=== PATIENT | female | born 1995 | race Caucasian/White ===

== ENCOUNTER → 2017-12-16 | Outpatient (CLI) | payer OTHER ==
--- NOTE | 2017-12-16 14:51 | MAMMOGRAPHY REPORT ---
ULTRASOUND OF BOTH BREASTS: 12/16/2017 CLINICAL HISTORY: 22-year-old woman presents with a palpable lump in the 9:00 right breast. She repo rts she noticed a lump approximately 2 weeks ago and it has not changed in size. No skin erythema or thickening. No nipple discharge. No family history of breast cancer. COMPARISON: No prior exams were available for comparison. FINDINGS: The patient pointed out a firm mobile mass in the 9:00 right breast approximately 5 cm from the nipple. On palpation, this mass is approximately 1 x 2 cm. On ultrasound in the 9:00 right pietro ast, 5 cm from the nipple, there is a heterogeneous predominantly hypoechoic solid mass with partiall y circumscribed and partially obscured borders, as well as somewhat indistinct margins measuring 14.6 x 11.2 x 15.5 mm. Given the solid nature and indistinct margins, this mass is indeterminate and def initive characterization with an ultrasound guided core biopsy is recommended. IMPRESSION: ACR BI-RADS CATEGORY 4: SUSPICIOUS - FOLLOW-UP RECOMMENDED The palpable lump at the 9:00 right breast corresponds to an indeterminate solid heterogeneous 15.5 m m mass with somewhat indistinct margins. Definitive characterization with an ultrasound-guided core needle biopsy is recommended. These results and recommendations were discussed with the patient at the time of the exam. She tenta tively scheduled the biopsy prior to leaving our department. Tiffanie Terrell M.D. ay/:12/16/2017 08:33:33 Apprentice Stylist: Dr. Tiffanie Terrell, [facility] letter sent: Abnormal 4/5 BI-RADS Code: ACR BI-RADS Category 4: Suspicious
== END | disposition home or self-care (01) ==
LOC: C.MAMM 08:06
PROVIDERS: ATTEND Family Medicine
DX: N63.11 Unspecified lump in the right breast, upper outer quadrant (principal)

== ENCOUNTER → 2017-12-18 | Outpatient (CLI) | payer OTHER ==
--- NOTE | 2017-12-18 13:16 | Discharge Instructions ---
Discharge Instructions Procedure Procedure Date: Dec 18, 2017. Reason for visit: Right Palpable Mass. Discharge Discharge Date: Dec 18, 2017. Discharge Diagnosis: post right breast mass ultrasound guided core biopsy Instructions Activity Recommendations: Additional Limitations (see below) Return to School/Work: no limitations Recommended Home Diet: No Limitations Provider Instructions: ACTIVITY RECOMMENDATIONS: * No lifting, pushing, pulling or exercising the affected side for three days. RETURN TO SCHOOL/WORK: * You may return to work/school after the procedure, but do not perform any strenuous activities for 24 to 48 hours. MEDICATIONS: * Tylenol (two 325 mg) every four to six hours if needed for mild pain (if not allergic to Tylenol). DIET: * Resume previous diet. SPECIAL CARE INSTRUCTIONS: * Keep biopsy site dry for 24 hours. May shower after 24 hours, but do not soak (bathe) incision. * May remove Tegaderm (plastic patch) tomorrow AFTER showering. * Leave the steri-strips on for one week. Allow the steri-strips to fall off by themselves. If not off after one week, you may remove them. You may place a Bandaid crosswise over the strips, if desired. * Apply ice 10 minutes on and 10 minutes off as needed. * Wear a bra at bedtime to sleep more comfortably for 2-3 days. * Your referring physician should have the results after approximately 5 to 7 business days. * Call for unusual bleeding, fever, drainage, etc or if you have any questions call [phone] during normal business hours or after hours call Dr Terrell, . FOLLOW UP VISIT: Follow-up with Referring Physician as scheduled. Allergies Uncoded Allergies: NKDA (Allergy, Unknown, 09/12/04) [facility] Recommendations: Call your doctor if: * Temperature above 101 degrees * Pain not relieved by pain medicine ordered * There is increased drainage or redness from any incision * You have any unanswered questions or concerns. Your Doctors Instructions noted above were prepared by provider Tiffanie Terrell. Patient Signature Section: Patient Instructions Signature Page Ashley Siegel Patient (or Guardian) Signature/Date: I have read and understand the instructions given to me by my caregivers. Caregiver/RN/Doctor Signature/Date: The above-named patient and/or guardian has received patient instructions on this date. + Original Patient Signature Page (only) stays with chart. Please make copy for patient.
--- NOTE | 2017-12-18 15:13 | MAMMOGRAPHY REPORT ---
ULTRASOUND GUIDED BIOPSY RIGHT BREAST: 12/18/2017 CLINICAL HISTORY: 15.5 mm non-circumscribed palpable solid mass in the 9:00 right breast. Patient pr esents for ultrasound guided core biopsy. COMPARISON: Comparison is made to exam dated: 12/16/2017 ultrasound - [facility]. PATIENT CONSENT: The procedure, risks and benefits were discussed with the patient and informed conse nt was obtained both verbally and in writing. Specific risks to this procedure include: bleeding, in fection, puncture of adjacent structure, nontarget biopsy, sampling error, pain, metal allergy and me dication reaction. PROCEDURE DESCRIPTION: A time out was performed and the right breast was agreed as the site of biopsy . The skin was prepped and draped in the usual sterile fashion. The solid palpable non-circumscribed 15.5 mm mass in the 9:00 right breast was chosen as the target for biopsy. Subcutaneous and intrapare nchymal 1% buffered lidocaine, with and without epinephrine, was administered as local anesthesia. A skin incision was made. Through the incision, 5 samples were taken with a 14 gauge Achieve biopsy de vice. A ribbon shaped metallic marker was placed at the biopsy site. Hemostasis was achieved after ma nual compression. The patient tolerated the procedure well and there was no immediate complication. The samples were sent to the pathology department in an appropriately labeled container. Post procedure mammography was deferred given the patient's age. IMPRESSION: ULTRASOUND GUIDED BIOPSY Status post ultrasound guided core biopsy of a solid palpable 15.5 mm mass in the 9:00 right breast. The patient will receive notification of the biopsy results from her referring physician. Tiffanie Terrell M.D. ay/:12/18/2017 13:18:16 Center Director Lead Teacher: aPm AGGARWAL)([place]), [facility]
== END | disposition home or self-care (01) ==
LOC: C.MAMM 12:47
PROVIDERS: ATTEND Family Medicine
DX: R92.8 Other abnormal and inconclusive findings on diagnostic imaging of breast (principal); N63.10 Unspecified lump in the right breast, unspecified quadrant; D24.1 Benign neoplasm of right breast

== ENCOUNTER 2022-12-13 18:54 | Inpatient (IN) ==
[2022-12-13] MEDS ORDERED: OXYTOCIN 30 UNITS/500 ML BAG IV PRN (21:43)
[2022-12-13] MEDS ORDERED: LIDOCAINE 1% LOCAL 20 ML VIAL INFIL PRN (21:43)
--- NOTE | 2022-12-13 21:48 | History & Physical Report ---
Date of Service December 13, 2022 Assessment & Plan (1) Uterine contractions at greater than 20 weeks of gestation: Plan: 27-year-old -0-1-1 at 40 weeks of gestation presenting today with contractions and cervical change, vital signs stable afebrile, heart rate reassuring, GBS negative, Plan to admit, monitor, labs, ambulate, epidural for pain as needed, oxytocin/AROM if needed. (2) Term : History of Present Illness Chief Complaint: Contractions Primary Care Provider: Ivory Sykes MD Patient is a 27-year-old -0-1-1 at 40 weeks of gestation who has been feeling irregular contractions for the last 2 days, they got more regular and pain for tonight since 4 PM. No leakage of fluid or vaginal bleeding. She reports good movements. When she first presented here, her cervix was 1 cm dilated and posterior. She walked around and now rechecked by myself and changed to 4 cm, 70%, -2 with a bulging bag. Now she is being admitted for labor. Her has been uncomplicated, GBS negative. Allergies Allergy/AdvReac Type Severity Reaction Status Date / Time No Known Allergies Allergy Unverified 04/28/20 12:34 Home Medications Medication Instructions Recorded Confirmed Type doxylamine 10 mg-pyridoxine (vit See Rx Instructions .Route 04/28/20 Rx B6) 10 mg tablet,delayed release .COMPLEX #12 tabs (Diclegis) Patient History Medical History No pertinent family history No pertinent past medical history Surgical History No pertinent past surgical history Social History Smoking Status: Never smoker Second Hand Exposure: No; Tobacco Cessation Education Requested by Patient: No Hx Alcohol Use: No Hx Substance Use: No Preferred Language: Citizen Of [place] Communication Ability: Effective 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 Review of Systems as per Subjective / HPI Physical Exam Constitutional: WD/WN, vitals as above well developed, well nourished and comfortable Genitourinary: normal external appearance OB Exam Abdomen: + vertex Manual OB Exam: + cervical dilation 4 cm, + cervical effacement 70% and + station -2 (Bulging bag) OB Exam Monitor Tracing: + external uterine monitor used and + category I Bedside ultrasound, vertex, ALYSIA 10 cm Results & Data ([facility]) Vital Signs (Past 12 Hours) Vital Signs Temp Pulse Resp BP 12/13/22 19:24 36.8 C 18 12/13/22 19:10 18 12/13/22 19:10 36.8 C 18 12/13/22 19:12 99 H 128/76
[2022-12-13 22:48] LABS: Hematocrit (blood only) 36.1 % (37.0-47.0); Mean Corpuscular Hemoglobin 28.8 pg (25.0-34.0); Mean Corpuscular Hgb Conc 33.2 g/dL (32.0-36.0); Mean Corpuscular Volume 86.6 fL (80.0-100.0); Platelet Count 197 K/uL (130-400); RDW Coefficient of Variation 14.4 % (11.5-14.5); RDW Standard Deviation 45.3 fL (36.4-46.3); Red Blood Count 4.17 M/uL (4.20-5.40); White Blood Count 10.54 K/ul (4.8-10.8)
[2022-12-13] MEDS: LACTATED RINGER'S 1,000 ML IV PRN ×2 (23:00→23:55)
[2022-12-13] MEDS ORDERED: BUPIVACAINE 0.25% 30 ML VIAL ONE (23:10)
[2022-12-13] MEDS ORDERED: ePHEDrine sulfate 50 MG/ML AMP ONE (23:10)
[2022-12-13] MEDS ORDERED: fentaNYL citrate 100 MCG/2 ML VIAL ONE (23:10)
[2022-12-13] MEDS ORDERED: SODIUM CHLORIDE 0.9% INJ 10 ML VIAL ONE (23:10)
[2022-12-13] MEDS ORDERED: LIDOCAINE 2%/EPINEPHRINE 1:200,000 20 ML SDV ONE (23:10)
[2022-12-13] MEDS ORDERED: fentaNYL 2MCG/ML ROPIVACAINE 1.25MG/ML 100 ML BAG EPI ONE (23:11)
[2022-12-13] MEDS ORDERED: fentaNYL 2MCG/ML ROPIVACAINE 1.25MG/ML 100 ML BAG EPI PRN (23:25)
[2022-12-13] MEDS ORDERED: ePHEDrine sulfate 50 MG/ML AMP IV PRN (23:25)
[2022-12-13] MEDS ORDERED: NALOXONE HCL 1 MG in SODIUM CHLORIDE 0.9% 1000ML 1,000 ML IV PRN (23:25)
[2022-12-13] MEDS ORDERED: NALBUPHINE HCL INJ 10 MG/ML AMP IV PRN (23:25)
[2022-12-13] MEDS ORDERED: diphenhydrAMINE 50 MG/ML VIAL IV PRN (23:25)
[2022-12-13] MEDS ORDERED: NALOXONE HCL 0.4 MG/1 ML VIAL/CARP IV PRN (23:25)
--- NOTE | 2022-12-13 23:26 | Anesthesiology Consultation ---
Date of Service December 13, 2022 Assessment & Plan (1) Encounter for pre-operative examination: Chart Review Chart Review: Patient NOT seen in Pre Admission Testing and Acceptable Risk for Labor Epidural Consults Requested none History Height/Weight Height: 5 ft 4 in Weight: 87.543 kg Allergies Allergy/AdvReac Type Severity Reaction Status Date / Time No Known Allergies Allergy Unverified 04/28/20 12:34 Medications Home Medications Medication Instructions Recorded Confirmed Last Taken doxylamine 10 mg-pyridoxine (vit See Rx Instructions .Route 04/28/20 Unknown B6) 10 mg tablet,delayed release .COMPLEX #12 tabs (Diclegis) Active Medications Generic Name Dose Route Start Last Admin Trade Name Freq PRN Reason Stop Dose Admin Lactated Ringer's 1,000 mls @ 150 mls/hr 12/13/22 21:43 12/13/22 23:00 Lr IV 12/15/22 21:42 999 mls/hr .[id number] PRN Administration L&D Protocol Protocol Past Medical History Medical History No pertinent family history No pertinent past medical history Past Surgical History Surgical History No pertinent past surgical history Social History Smoking Status: Never smoker Hx Alcohol Use: No Hx Substance Use: No substance use type: does not use Physical Exam Vital Signs Last Vital Signs Temp 98.2 F 12/13/22 19:24 Pulse 99 H 12/13/22 19:12 Resp 18 12/13/22 19:24 BP 128/76 12/13/22 19:12 Testing Laboratory Results 12/13/22 22:16
--- NOTE | 2022-12-14 00:10 | Obstetrical Progress Note ---
Date of Service December 14, 2022 Assessment & Plan Admission and Anticipated Discharge Date Admission Date: December 13, 2022 Subjective Patient is comfortable now, has received epidural for pain. She wants to get some rest. She has not slept much for the last 2 nights due to irregular contractions. FHR categ I Labs: Lab Results 12/13/22 12/13/22 Range/Units 22:00 22:16 WBC 10.54 (4.8-10.8) K/ul RBC 4.17 L (4.20-5.40) M/uL Hgb 12.0 (12.0-16.0) g/dl Hct 36.1 L (37.0-47.0) % MCV 86.6 (80.0-100.0) fL MCH 28.8 (25.0-34.0) pg MCHC 33.2 (32.0-36.0) g/dL RDW Std Deviation 45.3 (36.4-46.3) fL RDW Coeff of Asif 14.4 (11.5-14.5) % Plt Count 197 (130-400) K/uL MPV 10.0 (9.4-12.4) fL SARS-CoV-2, RNA, NAAT NEGATIVE (NEGATIVE) Continue to monitor closely Augment with Oxytocin as needed Results & Data ([facility]) Vital Signs (Past 12 Hours) Vital Signs Temp Pulse Resp BP Pulse Ox 12/13/22 19:24 36.8 C 18 12/14/22 00:04 110 H 97 12/13/22 23:59 101 H 96 12/13/22 23:55 94 H 107/59 L 12/13/22 23:54 95 H 96 12/13/22 23:52 86 106/59 L 12/13/22 23:49 91 H 112/59 L 97 12/13/22 23:46 93 H 122/64 12/13/22 23:44 96 H 12/13/22 23:44 98 H 124/66 99 12/13/22 23:39 93 H 100 12/13/22 19:10 18 12/13/22 19:10 36.8 C 18 12/13/22 19:12 99 H 128/76
[2022-12-14] MEDS ORDERED: OXYTOCIN 30 UNITS/500 ML BAG IV PRN ×2 (01:10→06:22)
[2022-12-14] MEDS ORDERED: ceFAZolin 2000MG 2,000 MG/15 ML SYR IV STA (05:55)
[2022-12-14] MEDS ORDERED: oxyCODONE/ACETAMINOPHEN 5mg/325mg TAB PO PRN (06:22)
[2022-12-14] MEDS ORDERED: DIPHTHERIA/TETANUS/PERTUSSIS 0.5mL SYR/VIAL (Age 7+yrs) IM ONE (06:22)
[2022-12-14] MEDS ORDERED: bisacodyL 10 MG SUPP PR PRN (06:22)
[2022-12-14] MEDS ORDERED: ACETAMINOPHEN 325 MG TAB PO PRN (06:22)
[2022-12-14] MEDS ORDERED: MEASLES, MUMPS & RUBELLA VIRUS VIAL SQ ONE (06:22)
[2022-12-14] MEDS ORDERED: HYDROCORTISONE ACETATE 25 MG SUPP PR PRN (06:22)
[2022-12-14] MEDS ORDERED: BENZOCAINE 20% AER SPR 82.5 GM CAN EXT PRN (06:22)
--- NOTE | 2022-12-14 06:30 | Delivery Summary ---
Vaginal Delivery Summary Date of Service December 14, 2022 Vaginal Delivery Summary Patient was found to be fully dilated and desire to push. She pushed through 2 contractions and delivered the head without difficulty. It was direct OP facing upwards. There was whose nuchal cord around the neck x2. It was reduced and then the shoulders were delivered with minimal traction and baby was handed off to the mother. The baby was moving and crying vigorously. The cord was clamped x2 and cut at 1 minute delay. Then the vagina and perineum were checked for lacerations. There was an laceration at the posterior fourchette where skin tightness and scarring was noted from prior delivery and repair. It was close to the perianal skin. Rectal exam was done and confirmed to be in third-degree laceration. The gloves were changed. The placenta was found to be in the vagina and delivered spontaneously as intact and complete. Uterus was explored and found to be empty, fundus was firm and EBL was 100 mL. Then the sphincter muscles were held with Allis clamps x2 and brought to the midline. They were repaired with 2-0 Vicryl with multiple figure of 8 stitches. And the perineal body muscles close to this repair were also reinforced with 2- 0 Vicryl. Rectal exam was repeated and excellent sphincter tone and integrity was noted and no sutures were felt. The gloves were changed and the vaginal mucosa was repaired with another 2-0 Vicryl in a running fashion and skin with 3-0 Vicryl in a subcuticular fashion. Excellent hemostasis was achieved. Rest of the vagina and labia were intact. The mom and baby tolerated procedure well. The baby was a viable male , Apgars 8/9 and weight is pending. No complications happened and I was present during whole procedure. At the end of the procedure the sponge needle instrument count was correct x2.
--- NOTE | 2022-12-14 08:11 | Anesthesia Procedure Note ---
Date of Service December 14, 2022 Anesthesia Post Epidural Note Vital Signs Vital Signs: Temp Pulse Resp BP Pulse Ox 36.8 C 99 H 18 133/67 89 L 12/14/22 06:23 12/14/22 08:08 12/14/22 06:53 12/14/22 08:08 12/14/22 05:49 Pain Intensity Bilateral Episiotomy/Laceration: Pain Intensity: 2 Notes Mental Status: alert / awake / arousable and participated in evaluation Nausea / Vomiting: adequately controlled Pain: adequately controlled Airway Patency, RR, SpO2: stable & adequate BP & HR: stable & adequate Hydration State: stable & adequate Neuraxial Anesthesia: was administered and sensory block is resolving Anesthetic Complications: no major complications apparent and Pt Satisfied with anesthetic care Epidural: Removed without complications and With tip intact
[2022-12-14] MEDS ORDERED: Nursing to Pharmacy Communication SCH (08:45)
[2022-12-14] MEDS: IBUPROFEN 600 MG TAB PO PRN ×3 (08:50→17:23)
[2022-12-14] MEDS: PRENATAL VITAMIN 1 TAB PO SCH (08:51)
[2022-12-14] MEDS: DOCUSATE SODIUM 100 MG CAP PO SCH ×2 (08:51→20:49)
[2022-12-14] MEDS: FERROUS SULFATE 325 MG TAB PO SCH (08:51)
[2022-12-14] MEDS ORDERED: bisacodyL 5 MG TABEC PO SCH (20:00)
[2022-12-15] MEDS: IBUPROFEN 600 MG TAB PO PRN ×2 (01:48→05:39)
[2022-12-15 06:27] LABS: Hematocrit (blood only) 33.1 % (37.0-47.0); Hemoglobin 10.9 g/dl (12.0-16.0); Mean Corpuscular Hemoglobin 28.9 pg (25.0-34.0); Mean Corpuscular Hgb Conc 32.9 g/dL (32.0-36.0); Mean Corpuscular Volume 87.8 fL (80.0-100.0); Mean Platelet Volume 9.9 fL (9.4-12.4); Platelet Count 153 K/uL (130-400); RDW Coefficient of Variation 14.5 % (11.5-14.5); RDW Standard Deviation 46.5 fL (36.4-46.3); Red Blood Count 3.77 M/uL (4.20-5.40); White Blood Count 11.09 K/ul (4.8-10.8)
[2022-12-15] MEDS: FERROUS SULFATE 325 MG TAB PO SCH (08:04)
[2022-12-15] MEDS: DOCUSATE SODIUM 100 MG CAP PO SCH (08:04)
[2022-12-15] MEDS: PRENATAL VITAMIN 1 TAB PO SCH (08:04)
--- NOTE | 2022-12-15 10:36 | Obstetrical Progress Note ---
Date of Service December 15, 2022 Assessment & Plan (1) Term : PPD #1 pt wishes to be discharged home d/c home with instructions Subjective Ambulation: ambulating normally Voiding: no voiding problems Passing Gas:: Yes Diet Tolerance:: regular diet Lochia:: Small Feeding Type:: breast feeding Review of Systems All systems reviewed & are unremarkable except as noted in HPI & below Physical Exam Constitutional WD/WN, vitals as above well developed and well nourished Eyes PERRL, conjunctivae normal, anicteric sclerae Neck trachea midline, no thyromegaly Respiratory normal respiratory effort, lungs clear to auscultation Auscultation: no crackles, no rales and no wheezes Cardiovascular RRR, no murmur, no edema Gastrointestinal (Abdomen) normal bowel sounds, soft, nontender, no hepatosplenomegaly Uterus is below umbilicus Musculoskeletal no cyanosis or clubbing, extremities motor strength 5/5 Skin no rashes, warm and dry Neurologic patellar DTR's 2+ bilat, sensation intact Psychiatric A+Ox3, euthymic affect Genitourinary normal external appearance Results & Data ([facility]) Vital Signs (Past 12 Hours) Vital Signs Temp Pulse Resp BP Pulse Ox O2 Del Method 12/15/22 08:05 36.7 C 79 18 117/79 97 Room Air 12/15/22 04:29 36.4 C L 76 18 118/77 96 Room Air 12/15/22 00:20 Room Air 12/15/22 00:20 36.6 C 82 18 110/72 99 Room Air
== END 2022-12-15 10:55 | disposition home or self-care (01) | DRG 768 ==
LOC: OPB 18:54 → 4S1 19:02 → 4E2 12-14 10:32

== ENCOUNTER 2025-02-16 15:36 | Inpatient (IN) ==
[2025-02-16] MEDS ORDERED: OXYTOCIN 30 UNITS/NSS 30 UNITS/500 ML BAG IV PRN ×2 (17:07→17:13)
[2025-02-16] MEDS ORDERED: LIDOCAINE 1% LOCAL 20 ML VIAL INFIL PRN (17:07)
[2025-02-16] MEDS ORDERED: ACETAMINOPHEN 500 MG TAB PO PRN (17:07)
[2025-02-16] MEDS ORDERED: CALCIUM CARBONATE 500 MG CHEWABLE TAB PO PRN (17:07)
[2025-02-16] MEDS: LACTATED RINGER'S 1,000 ML IV PRN (17:30)
--- NOTE | 2025-02-16 17:33 | History & Physical Report ---
Date of Service February 16, 2025 Assessment & Plan (1) Term : (2) Uterine contractions at greater than 20 weeks of gestation: (3) Active labor at term: Plan: 30-year-old -0-1-2 at 40 weeks and 1 day gestation presenting today in active labor with contractions, Vital signs stable although systolic blood pressures elevated no other symptoms, labs pending, heart rate reassuring, Known abnormality, absent left kidney, vp delivery is notified GBS negative, Plan to admit,Monitor, labs, epidural for pain, augment with low-dose Pitocin and then AROM, all questions were answered. (4) renal anomaly, single gestation: History of Present Illness Chief Complaint: contractions Primary Care Provider: Ivory Sykes MD patient is a 30-year-old -0-0-2 at 40 weeks and 1 day gestation who has been feeling contractions since midnight, she was up all night with contractions and then they slowed down in the morning when she took a nap. This started again this afternoon and they have been coming every 3 to 5 minutes. She denies leakage of fluid or vaginal bleeding. Baby was very active overnight by and then slowed down during the day and started to move again when she came here. She denies headaches, change in her vision, nausea vomiting, epigastric or right upper quadrant pain. Her has been complicated by, 1. Obesity during , 2. history of omphalocele during first , baby was delivered in [facility] had surgery and she is doing well now, 3. anomaly during , absent left kidney GBS is negative Allergies Allergy/AdvReac Type Severity Reaction Status Date / Time No Known Allergies Allergy Unverified 04/28/20 12:34 Home Medications Medication Instructions Recorded Confirmed Type prenat.vits,valentine,afc-kdpr-qsqer 1 tab PO DAILY 12/14/22 02/16/25 History ferrous sulfate 325 mg (65 mg 325 mg PO DAILY@08 #30 tabs 12/15/22 02/16/25 Rx iron) tablet,delayed release Patient History Medical History Anemia had Iron Infusion this Surgical History [place] teeth removed Social History Smoking Status: Never smoker Second Hand Exposure: No; Hx Alcohol Use: No Hx Substance Use: No Preferred Language: Japanese Communication Ability: Effective 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 Beliefs That Will Affect Care: None marital status: Current Living Situation: Spouse and Family Feels Safe at Home: Yes Assistive Devices: Contacts and Glasses 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 of STDs, no history of chlamydia, gonorrhea, herpes Review of Systems as per Subjective / HPI Physical Exam Constitutional: WD/WN, vitals as above well developed, well nourished, + acute distress ( with contractions) and + obese Gastrointestinal (Abdomen): normal bowel sounds, soft, nontender, no hepatosplenomegaly Genitourinary: normal external appearance OB Exam Abdomen: + vertex ( confirmed with bedside ultrasound) Manual OB Exam: + cervical dilation 5 cm ( very soft stretchable cervix), + cervical effacement 50% and + station high ( bulging bag, unable to feel presenting part) OB Exam Monitor Tracing: + external uterine monitor used and + category I bedside ultrasound revealed single IUP, vertex, ALYSIA is 16 cm, placenta fundal posterior, EFW is 3668 g Results & Data Vital Signs (Past 12 Hours) Vital Signs Temp Pulse Resp BP 02/16/25 16:40 86 02/16/25 16:40 146/76 H 02/16/25 16:26 92 H 02/16/25 16:26 140/77 02/16/25 16:09 91 H 02/16/25 16:09 141/85 H 02/16/25 15:49 36.5 C 91 H 20 144/85 H 02/16/25 15:46 91 H 144/85 H 02/16/25 15:44 20 02/16/25 15:44 36.5 C 20 Laboratory Results Lab Results 02/16/25 Range/Units 17:17 WBC 10.45 (4.8-10.8) K/ul RBC 4.55 (4.20-5.40) M/uL Hgb 12.7 (12.0-16.0) g/dl Hct 38.8 (37.0-47.0) % MCV 85.3 (80.0-100.0) fL MCH 27.9 (25.0-34.0) pg MCHC 32.7 (32.0-36.0) g/dL RDW Std Deviation 56.7 H (36.4-46.3) fL RDW Coeff of Asif 18.2 H (11.5-14.5) % Plt Count 170 (130-400) K/uL MPV 9.7 (9.4-12.4) fL
[2025-02-16 17:42] LABS: Hematocrit (blood only) 38.8 % (37.0-47.0); Hemoglobin 12.7 g/dl (12.0-16.0); Mean Corpuscular Hemoglobin 27.9 pg (25.0-34.0); Mean Corpuscular Hgb Conc 32.7 g/dL (32.0-36.0); Mean Corpuscular Volume 85.3 fL (80.0-100.0); Mean Platelet Volume 9.7 fL (9.4-12.4); Platelet Count 170 K/uL (130-400); RDW Coefficient of Variation 18.2 % (11.5-14.5); RDW Standard Deviation 56.7 fL (36.4-46.3); Red Blood Count 4.55 M/uL (4.20-5.40); White Blood Count 10.45 K/ul (4.8-10.8)
--- NOTE | 2025-02-16 17:49 | Anesthesiology Consultation ---
Date of Service February 16, 2025 Assessment & Plan (1) Encounter for pre-operative examination: Chart Review Chart Review: Acceptable Risk for Labor Epidural History Height/Weight Height: 5 ft 4 in Weight: 97.069 kg Allergies Allergy/AdvReac Type Severity Reaction Status Date / Time No Known Allergies Allergy Unverified 04/28/20 12:34 Medications Home Medications Medication Instructions Recorded Confirmed Last Taken prenat.vits,valentine,yov-iybo-qopdm 1 tab PO DAILY 12/14/22 02/16/25 02/15/25 20:00 ferrous sulfate 325 mg (65 mg 325 mg PO DAILY@08 #30 tabs 12/15/22 02/16/25 02/15/25 20:00 iron) tablet,delayed release Past Medical History Medical History Anemia had Iron Infusion this Past Surgical History Surgical History [place] teeth removed Social History Smoking Status: Never smoker Hx Alcohol Use: No Hx Substance Use: No substance use type: does not use Physical Exam Vital Signs Last Vital Signs Temp 36.5 C 02/16/25 15:49 Pulse 88 02/16/25 17:45 Resp 20 02/16/25 15:49 BP 146/76 H 02/16/25 16:40 Pulse Ox 96 02/16/25 17:45 Testing Laboratory Results 02/16/25 17:17
[2025-02-16 17:54] LABS: Albumin Globulin Ratio 1.2 (0.9-2); Albumin Level 3.5 gm/dl (3.4-5.0); BUN Creatinine Ratio 21.7 (10-20); Bilirubin,Total 0.3 mg/dl (0.2-1.0); Calcium 9.1 mg/dl (8.6-10.3); Creatinine Clr Calc Pharmacy 205.9 ml/min; Potassium 4.1 mmol/L (3.5-5.1); Total Protein 6.5 gm/dl (6.0-8.3)
[2025-02-16] MEDS: fentaNYL citrate PF 100 MCG/2 ML VIAL ONE (18:16)
[2025-02-16] MEDS: BUPIVACAINE 0.25% PF 30 ML VIAL ONE (18:16)
[2025-02-16] MEDS: LIDOCAINE 2%/EPINEPHRINE 1:200,000 20 ML PF ONE (18:16)
[2025-02-16] MEDS: fentANYL 2 MCG/ML BUPIVacaine 0.125%-NSS 100ML BAG ONE (18:17)
[2025-02-16] MEDS ORDERED: fentaNYL citrate PF 100 MCG/2 ML VIAL EPI PRN (18:18)
[2025-02-16] MEDS ORDERED: BUPIVACAINE 0.25% PF 30 ML VIAL EPI PRN (18:18)
[2025-02-16] MEDS ORDERED: ePHEDrine sulfate 50 MG/ML AMP IV PRN (18:18)
[2025-02-16] MEDS ORDERED: fentANYL 2 MCG/ML BUPIVacaine 0.125%-NSS 100ML BAG EPI PRN (18:18)
[2025-02-16] MEDS ORDERED: ONDANSETRON INJ 2 MG/ML 2 ML VIAL IV PRN (18:18)
[2025-02-16] MEDS ORDERED: NALOXONE HCL 0.4 MG/1 ML VIAL/CARP IV PRN (18:18)
[2025-02-16] MEDS ORDERED: NALOXONE HCL 1 MG in SODIUM CHLORIDE 0.9% 1,000 ML IV PRN (18:18)
[2025-02-16] MEDS ORDERED: SODIUM CHLORIDE 0.9% PF INJ 10 ML VIAL EPI PRN (18:18)
[2025-02-16] MEDS ORDERED: LIDOCAINE 2% MPF LOCAL 5 ML VIAL EPI PRN (18:18)
[2025-02-16] MEDS ORDERED: ROPIVACAINE 0.5% PF 5 MG/ML 20 ML VIAL EPI PRN (18:18)
[2025-02-16] MEDS: SODIUM CHLORIDE 0.9% PF INJ 10 ML VIAL ONE (18:28)
--- NOTE | 2025-02-16 20:20 | Obstetrical Progress Note ---
Date of Service February 16, 2025 Assessment & Plan Admission and Anticipated Discharge Date Admission Date: February 16, 2025 Subjective Patient received epidural for pain and now feels pressure VE 7-8 cm/ 80%/ large bulging bag, AROM'ed, abundant clear fluid, head is at -1 FHR categ I Continue to monitor closely Results & Data Vital Signs (Past 12 Hours) Vital Signs Temp Pulse Resp BP Pulse Ox 02/16/25 20:15 98 02/16/25 20:15 86 02/16/25 20:12 77 02/16/25 20:12 134/63 02/16/25 20:10 99 02/16/25 20:10 89 02/16/25 20:05 99 02/16/25 20:05 88 02/16/25 20:00 98 02/16/25 20:00 80 02/16/25 19:59 76 02/16/25 19:59 134/54 L 02/16/25 19:59 93 02/16/25 19:59 84 02/16/25 19:55 99 02/16/25 19:55 87 02/16/25 19:50 99 02/16/25 19:50 84 02/16/25 19:45 98 02/16/25 19:45 74 02/16/25 19:43 72 02/16/25 19:43 102/59 L 02/16/25 19:40 97 02/16/25 19:40 84 02/16/25 19:35 97 02/16/25 19:35 68 02/16/25 19:30 98 02/16/25 19:30 80 02/16/25 19:29 73 02/16/25 19:29 116/59 L 02/16/25 19:25 98 02/16/25 19:25 77 02/16/25 19:20 97 02/16/25 19:20 73 02/16/25 19:15 98 02/16/25 19:15 78 02/16/25 19:10 98 02/16/25 19:10 74 02/16/25 19:09 75 02/16/25 19:09 106/54 L 02/16/25 19:05 36.9 C 16 02/16/25 19:05 98 02/16/25 19:05 78 02/16/25 19:04 75 02/16/25 19:04 103/55 L 02/16/25 19:00 99 02/16/25 19:00 73 02/16/25 18:59 81 02/16/25 18:59 101/55 L 02/16/25 18:55 98 02/16/25 18:55 75 02/16/25 18:54 75 02/16/25 18:54 99/54 L 02/16/25 18:50 97 02/16/25 18:50 73 02/16/25 18:48 71 02/16/25 18:48 95/50 L 02/16/25 18:45 96 02/16/25 18:45 84 02/16/25 18:44 83 02/16/25 18:44 100/60 02/16/25 18:40 96 02/16/25 18:40 82 02/16/25 18:39 102 H 02/16/25 18:39 93/52 L 02/16/25 18:35 96 02/16/25 18:35 80 02/16/25 18:33 85 02/16/25 18:33 94/51 L 02/16/25 18:30 96 02/16/25 18:30 86 02/16/25 18:29 78 02/16/25 18:29 104/53 L 02/16/25 18:25 96 02/16/25 18:25 88 02/16/25 18:21 92 H 02/16/25 18:21 107/59 L 02/16/25 18:20 97 02/16/25 18:20 86 02/16/25 18:18 78 02/16/25 18:18 95/55 L 02/16/25 18:15 96 02/16/25 18:15 91 H 02/16/25 18:15 99/57 L 02/16/25 18:13 81 02/16/25 18:13 99/58 L 02/16/25 18:10 96 02/16/25 18:10 88 02/16/25 18:09 91 H 02/16/25 18:09 125/60 02/16/25 18:06 86 02/16/25 18:06 124/74 02/16/25 18:05 96 02/16/25 18:05 86 02/16/25 18:00 97 02/16/25 18:00 101 H 02/16/25 17:59 94 02/16/25 17:59 111 H 02/16/25 17:56 83 02/16/25 17:56 126/81 02/16/25 17:55 96 02/16/25 17:55 82 02/16/25 17:50 96 02/16/25 17:50 85 02/16/25 17:45 96 02/16/25 17:45 88 02/16/25 17:40 96 02/16/25 17:40 87 02/16/25 17:35 95 02/16/25 17:35 82 02/16/25 17:30 96 02/16/25 17:30 89 02/16/25 16:40 86 02/16/25 16:40 146/76 H 02/16/25 16:26 92 H 02/16/25 16:26 140/77 02/16/25 16:09 91 H 02/16/25 16:09 141/85 H 02/16/25 15:49 36.5 C 91 H 20 144/85 H 02/16/25 15:46 91 H 144/85 H 02/16/25 15:44 20 02/16/25 15:44 36.5 C 20
[2025-02-16] MEDS: OXYTOCIN 30 UNITS/NSS 30 UNITS/500 ML BAG IV PRN (21:01)
[2025-02-16] MEDS ORDERED: oxyCODONE/ACETAMINOPHEN 5mg/325mg TAB PO PRN (21:09)
[2025-02-16] MEDS ORDERED: HYDROCORTISONE ACETATE 25 MG SUPP PR PRN (21:09)
--- NOTE | 2025-02-16 21:15 | Delivery Summary ---
Vaginal Delivery Summary Date of Service February 16, 2025 Vaginal Delivery Summary Patient was found to be fully dilated and desires to push. She pushed with one contraction only min and delivered the head and then shoulders with minimal traction. The baby was handed off to the mother. The cord was clampedx2 and cut at 1 minute. The vagina and perineum were checked and found to have a small 2nd degree perineal laceration. Rectal exam was done and noted good sphincter tone. The gloves were changes. The vaginal mucosa was repaired with 2/0 vicryl and skin on subcuticular fashion. The placenta was delivered spontaneously as intact and complete. The uterus was explored and found to be empty. QBL was 60 ml. The fundus was firm The baby was a viable male , Apgars 8/9, the weight is pending The mother and the baby tolerated the procedure well. No complications happened and I was present during whole procedure.
[2025-02-16] MEDS: ePHEDrine sulfate 50 MG/ML AMP ONE (21:59)
[2025-02-16] MEDS: MEASLES, MUMPS & RUBELLA VIRUS VACCINE (MMR) 0.5ML VIAL SQ ONE (22:00)
[2025-02-16] MEDS: LIDOCAINE 2%/EPINEPHRINE 1:200,000 20 ML PF EPI STA (22:00)
[2025-02-16] MEDS: BUPIVACAINE 0.25% PF 30 ML VIAL EPI STA (22:00)
[2025-02-16] MEDS: fentaNYL citrate PF 100 MCG/2 ML VIAL EPI STA (22:00)
[2025-02-16] MEDS: SODIUM CHLORIDE 0.9% PF INJ 10 ML VIAL EPI STA (22:00)
[2025-02-16] MEDS: IBUPROFEN 600 MG TAB PO PRN (22:07)
[2025-02-16] MEDS: BENZOCAINE 20% SPRY 85 APPLN/85 GM CAN EXT PRN (22:08)
[2025-02-16] MEDS: DIPHTHER/TETAN/PERTUS Vaccine (Tdap, Adol/Adult) 0.5mL IM ONE (23:59)
[2025-02-17] MEDS: ACETAMINOPHEN 325 MG TAB PO PRN (04:09)
--- OUTSIDE RECORDS SUMMARY | 2025-02-17 04:13 | External Medical Summary ---
Author Name Unknown Address Unknown Organization [id number][facility] [facility] [address] [place] [address] Laboratory Report Ordering Provider Test Date Status LUPE VALDEZ 01/28/2025 14:58:19 Final Observation Date Value Abnormality Reference (Units ) Status WBC, Total 01/28/2025 14:58:19 8.88 4.00-10.8 0 (K/uL) Final RBC 01/28/2025 14:58:19 4.12 3.85-5.15 (M/uL) Final Hemoglobin 01/28/2025 14:58:19 12.0 12.0-15.3 (g/dL) Final HCT 01/28/2025 14:58:19 36.3 36.0-45.2 (%) Final MCV 01/28/2025 14:58:19 88.1 81.5-97.5 (fL) Final MCH 01/28/2025 14:58:19 29.1 27.0-34.0 (pg) Final MCHC 01/28/2025 14:58:19 33.1 32.0-36.0 (g/dL) Final RDW 01/28/2025 14:58:19 18.8 11.5-15.5 (%) Final Platelets 01/28/2025 14:58:19 165 140-400 (K /uL) Final MPV 01/28/2025 14:58:19 9.8 6.6-11.1 ( fL) Final Performing Location [facility] [place] [facility] [place] [address]
--- OUTSIDE RECORDS SUMMARY | 2025-02-17 04:13 | External Medical Summary | Summary of Care ---
Author Name Unknown Organization [facility] Address [address] [facility] [place] [address] Phone [phone] Care Team Providers Care Street Light Mechanic Name Role Phone Ivory Sykes MD Primary Care Provider Reason for Visit * Reason Comments Outpatient Testing Encounter Details Date Type Department Care Team (Late st Contact Info) Description 01/28/2025 3:10 PM EDT Laboratory Laboratory, [facility] [address] [facility] [place] [id number] [facility] [address] Antepartum anemia complicating Allergies No known active allergiesdocumented as of this encounter (statuses as of 01/28/2025) Medications 27-0.8 MG TABS Take 1 Tablet by mouth in the morning. Active Iron (Ferrous Sulfate) 325 (65 Fe) MG Oral Tablet Take 1 Tablet by mouth in the morning. 90 Tablet 1 12/17/2024 Active documented as of this encounter (statuses as of 01/28/2025) Active Problems Problem Noted Date Diagnosed Date Iron deficiency anemia 12/16/2024 Antepartum anemia complicating 025 Overview (12/02/2024): Third tri labs Hgb 10.2. IV iron recommended Health counseling 11/13/2024 Overview (01/28/2025): Problem Action Taken Date entered Entered by Date resolved nutrition [facility] Consuelo Bell RN 11/13/2024 Dental visits Encouraged 11/13/2024 Consuelo Bell RN 11/13/2024 planned Will give pump later in 11/13/2024 Consuelo Bell RN 11/13/2024 Problem Action Taken Date entered Entered by Date resolved Current needs or questions Patient denies having any current needs or questions 11/30/2024 Consuelo Bell RN 11/30/2024 Problem Action Taken Date entered Entered by Date resolved Current needs or questions Patient denies having any current needs or questions 01/21/2025 Delaney Yin RN 01/21/2025 Problem Action Taken Date entered Entered by Date resolved Current needs or questions Patient denies having any current needs or questions 01/28/2025 Consuelo Bell RN 01/28/2025 Assessment & Plan (12/17/2024 9:37 AM EST): Problem Action Taken Date entered Entered by Date resolved Current needs or questions Patient denies having any current needs or questions 12/17/2024 Consuelo Bell RN 12/17/2024 renal anomaly, 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 A left kidney was not visualized, with a normal contralateral kidney noted. Normal ALYSIA and bladder. Findings confirmed with color Doppler of renal arteries as well as evaluation for pelvic kidney, which was not visualized. 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 We will follow, as may represent pelvic kidney which could not be visualized today. Diagnosis should be confirmed with renal u/s and pediatrics should be made aware. In addition, female infants with renal agenesis may also have Mullerian anomalies. Due to small risk for genetic anomalies in fetus with renal agenesis, will also refer to genetic counseling. Questions answered. As required by [place] Act 112, the Patient Test Result Information Act, I have discussed with the patient the significant findings from the diagnostic imaging service performed today. They have expressed their understanding and signed the acknowledgement form. 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 Pt declined MFM referral and genetic screening for 2023 . 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 Non urgent echocardiogram Umbilical cord cyst during p regnancy, antepartum 08/25/2020 05/25/2022 Omphalocele of fetus in sing [place]ton , antepartum 07/21/2020 05/25/2022 Overview (11/01/2020): Scheduled for delivery at [place] after 39 weeks Assessment & Plan (08/25/2020 3:37 PM EDT): She presents today for follow-up of growth and reassessment of a omphalocele. We reviewed the results of today's ultrasound. The estimated weight is appropriate for gestational age in the 37th percentile. The AC is at the 8th percentile. A small omphalocele is again noted. It is similar in size and appearance to the prior exam and appears to contain bowel. The remainder of the visualized anatomy is unremarkable in appearance. The ALYSIA is normal. An umbilical cord cyst is noted distal to the omphalocele. It appears to be paraxial (not central). It appears more hypoechoic compared to the prior exam, with less internal debris. We discussed that today's imaging is similar to the prior exam. The AC is smaller; this may reflect less interval growth than expected vs positional factors/omphalocele. I recommended follow-up in 3-4 weeks. She is scheduled at that time for an MDC as well. Urinary tract infection affecting 07/21/2020 09/29/2020 Low-lying placenta 07/21/2020 0 High-risk 05/26/2020 05/25/20 22 documented as of this encounter (statuses as of 01/28/2025) Immunizations Name Administration Dates Next Due Seasonal Influenza, PF, 6 M & above, IM , (FluLaval or Fluzone) 12/03/2020(Deferred: Patient Refused - janice ho) TDAP (age 10 and older)(Boostrix) 09/27/2022,12/2019 documented as of this encounter Social History Tobacco Use Types Packs/Day Years Used Date Smoking Tobacco: Never Smokeless Tobacco: Never Alcohol Use Standard Drinks/Week Comments No 0 (1 standard drink = 0.6 oz pur e alcohol) PHQ-2 Answer Date Recorded PHQ Adult Total Score 0 11/01/2020 Hunger Vital Sign Answer Date Recorded Within the past 12 months, y ou worried that your food would run out before you got the money to buy more. Patient declined Within the past 12 months, t he food you bought just didn't last and you didn't have money to get more. Patient declined [place] Depression Scale Answer Date Recorded [place] Depression Scale Total 3 01/21/2025 The thought of harming myself has occurred to me . Never 01/21/2025 Childcare Answer Date Recorded Do you feel overwhelmed with taking care of a child, family member or friend? No 10/15/2024 Does your family need help f inding childcare? (Household - for ages 0-17 years) Not on file 10/15/2024 Clothing Answer Date Recorded Have you been unable to get clothing when it was really needed? No 10/15/2024 Is your family able to get c lothes or diapers when needed? (Household - for ages 0-17 years) Not on file 10/15/2024 Personal Safety Answer Date Recorded Do you feel unsafe or have concerns for your saf ety? No 10/15/2024 Do you have concerns for you r family's safety? (Household - for ages 0-17 years) Not on file 10/15/2024 Utilities Answer Date Recorded Do you have trouble paying y our heating, water, or electric bill? No 10/15/2024 Is your family able to pay t he heat, water, or electric bill? (Household - for ages 0-17 years) Not on file 10/15/2024 Does your family have access to good internet? (Household - for ages 0-17 years) Not on file 10/15/2024 Employment Status Answer Date Recorded Are you unemployed or without regular income? No 10/15/2024 Does the household have a re gular source of income? (Household - for ages 0-17 years) Not on file 10/15/2024 Social Connections Answer Date Recorded How often do you feel lonely or isolated from th ose around you? Never 10/15/2024 Financial Resource Strain Answer Date R ecorded Do you have any trouble payi ng for your medications, or do you think you might in the future? No 10/15/2024 Does your family have troubl e paying for medicine? (Household - for ages 0-17 years) Not on file 10/15/2024 Transportation Needs Answer Date Record ed Do you have trouble getting a ride to medical visits or work? (Adult - for ages 18 years and over) Not on file 10/15/2024 Does your family have a hard time getting a ride to doctors visits? (Household - for ages 0-17 years) Not on file 10/15/2024 Has lack of transportation k ept you from medical appointments, meetings, work, or from getting things needed for daily living? Check all that apply. No 10/15/2024 Do you (or your family) have trouble finding or paying for a ride (transportation)? (Household - for ages 0-17 years) Not on file 10/15/2024 Housing Stability Answer Date Recorded Do you currently live in a s helter or have no steady place to sleep at night? No 10/15/2024 Do you think you are at risk of becoming homeless? (Adult - for ages 18 years and over) Not on file 10/15/2024 Does your family worry about paying for your home or becoming homeless? (Household - for ages 0-17 years) Not on file 1 12/16/2023 Are you homeless or worried that you might be in the future? No 10/15/2024 Are you (or your family) janki eless or worried that you might be in the future? (Household - for ages 0-17 years) Not on file Food Insecurity Answer Date Recorded Do you need food for this week? No 10/15/2024 Are you able to get enough f ood for your family? (Household - for ages 0-17 years) Not on file 10/15/2024 Does your family need food t his week? (Household - for ages 0-17 years) Not on file 10/15/2024 Do you always have enough fo od for your family? (Household - for ages 0-17 years) Not on file 10/15/2024 Food Insecurity Answer Date Recorded Within the past 12 months, y ou worried that your food would run out before you got the money to buy more. Patient declined Within the past 12 months, t he food you bought just didn't last and you didn't have money to get more. Patient declined Do you need food for this week? No 10/15/2024 Estimated Date of Delivery Comme nts Yes 02/15/2025 Based on last me nstrual period of 05/11/2024 Sex and Gender Information Value Date Recorded Sex Assigned at Female 05/25/2022 9:45 AM EDT Legal Sex Female 6:53 AM EST Gender Identity Female 05/25/2022 9:45 AM EDT Sexual Orientation Straight 05/25/2022 9: 45 AM EDT documented as of this encounter Plan of Treatment Upcoming Encounters Date Type Department Care Team (Late st Contact Info) Description 01/29/2025 9:30 AM EDT Pharmacy Pharmacy, [address] [address] Clinic, [address] [address] 02/09/2025 10:30 AM EDT Office Visit Gynecology/Obstetrics Elisa Crooks [address] [place] [address] Silvino Forbes MD [address] [place] [phone] Nurse Valer[facility] Martha [address] [place] [address] Pending Results Name Type Priority Associated Diagnoses Date /Time IRON SCREEN, INCLUDING TIBC Lab Routine Antepartum anemia complicating 01/28/2025 2:58 PM EDT FERRITIN Lab Routine Antepartum anemia complicating 01/28/2025 2:58 PM EDT FOLIC ACID Lab Routine Antepartum anemia complicating 01/28/2025 2:58 PM EDT VITAMIN B12 Lab Routine Antepartum anemia complicating 01/28/2025 2:58 PM EDT Health Maintenance Due Date Last Done Comments Depression Screening 2009 Hepatitis B Vaccine (1 of 3 - 19+ 3-dose series) 01/23/2016 Lipid Panel 2017 COVID-19 Vaccine ( - 2023-2 5 season) 2024 Influenza Vaccine (FLU shot) (Season Ended) 2025 Pap Smear 07/20/2027 07/20/2024, 05/26/2020 DTap/Tdap Vaccines (3 - Td o r Tdap) 09/27/2032 09/27/2022, 09/29/2020 Gonorrhea / Chlamydia Screen Discontinued , 05/25/2022, 05/26/2020 HPV (Gardasil) Vaccine Aged Out No lo nger eligible based on patient's age to complete this topic MENINGOCOCCAL (MENACTRA/MENVEO) Aged Out No longer eligible based on patient's age to complete this topic Meningitis B Vaccine (Bexsero/Trumemba) Aged Out No longer eligible based on patient's age to complete this topic Pneumococcal Vaccine: Pediatrics (0 to 5 Years) and At-Risk Patients (6 to 18 Years and 19+ Years) Aged Out No longer eligible based on patient's age to complete this topic documented as of this encounter Goals Goal Patient Goal Type Associated Problems Recent Progress Patient-Stated? Author Reminders Care Plan OB Reminders No Abelt, Provider documented as of this encounter Medical Devices Not on filedocumented as of this encounter Procedures Procedure Name Priority Date/Time Associated Diagnosis Comments DIFFERENTIAL, AUTOMATED Routine 01/28/2025 2:58 PM EDT Antepartum anemia complicating RETICULOCYTE PANEL Routine 01/28/2025 2: 58 PM EDT Antepartum anemia complicating CBC Routine 01/28/2025 2:58 PM EDT Antepartum anemia complicating CBC Routine 01/28/2025 2:58 PM EDT Antepartum anemia complicating DIFFERENTIAL, TECHNOLOGIST REVIEW Routine 01/28/2025 2:58 PM EDT Antepartum anemia complicating documented in this encounter Results * DIFFERENTIAL, TECHNOLOGIST REVIEW (01/28/2025 2:58 PM EDT) nRBCs 01/28/2025 3:46 PM EDT [facility] [place] [facility] Blood Venous blood specimen / Unknown Venipuncture / Unknown 01/28/2025 2:58 PM EDT 01/28/2025 2:58 PM EDT Lilian Melendez [facility] LAB BLOOD ORDERABLES Final Res ult [facility] [place] [facility] [place] [address] * DIFFERENTIAL, AUTOMATED (01/28/2025 2:58 PM EDT) WBC 8.88 4.00 - 10.80 K/uL 01/28/2025 3:46 PM EDT [facility] [place] [facility] Neutrophils % 63.3 40.0 - 75.0 % 01/28/2025 3:46 PM EDT [facility] [place] [facility] Lymphocytes % 27.1 18.0 - 42.0 % 01/28/2025 3:46 PM EDT [facility] [place] [facility] Monocytes % 8.8 1.0 - 11.0 % 01/28/2025 3:46 PM EDT [facility] [place] [facility] Eosinophils % 0.6 0.0 - 6.0 % 01/28/2025 3:46 PM EDT [facility] [place] [facility] Basophils % 0.2 0.0 - 2.0 % 01/28/2025 3:46 PM EDT [facility] [place] [facility] Absolute Neutrophils 5.62 1.80 - 7.70 K/uL 01/28/2025 3:46 PM EDT [facility] [place] [facility] Absolute Lymphocytes 2.41 1.00 - 4.80 K/ul 01/28/2025 3:46 PM EDT [facility] [place] [facility] Absolute Monocytes 0.78 0.00 - 1.10 K/uL 01/28/2025 3:46 PM EDT [facility] [place] [facility] Absolute Eosinophils 0.05 0.00 - 0.70 K/uL 01/28/2025 3:46 PM EDT [facility] [place] [facility] Absolute Basophils 0.02 0.00 - 0.20 K/uL 01/28/2025 3:46 PM EDT [facility] [place] [facility] Blood Venous blood specimen / Unknown Venipuncture / Unknown 01/28/2025 2:58 PM EDT 01/28/2025 2:58 PM EDT us Lilian Melendez [facility] LAB BLOOD ORDERABLES Final Res ult [facility] [place] [address] [place] [address] * CBC (01/28/2025 2:58 PM EDT) [facility] WBC 8.88 4.00 - 10.80 K/uL 01/28/2025 3:46 PM EDT [facility] [place] [facility] RBC 4.12 3.85 - 5.15 M/uL 01/28/2025 3:46 PM EDT [facility] [place] [facility] HGB 12.0 12.0 - 15.3 g/dL 01/28/2025 3:46 PM EDT [facility] HCT 36.3 36.0 - 45.2 % 01/28/2025 3:46 PM EDT [facility] MCV 88.1 81.5 - 97.5 fL 01/28/2025 3:46 PM EDT [facility] [place] [facility] MCH 29.1 27.0 - 34.0 pg 01/28/2025 3:46 PM EDT [facility] MCHC 33.1 32.0 - 36.0 g/dL 01/28/2025 3:46 PM EDT [facility] RDW 18.8 11.5 - 15.5 % 01/28/2025 3:46 PM EDT [facility] PLT 165 140 - 400 K/uL 01/28/2025 3:46 PM EDT [facility] [place] [address] MPV 9.8 6.6 - 11.1 fL 01/28/2025 3:46 PM EDT [facility] Blood Venous blood specimen / Unknown Venipuncture / Unknown 01/28/2025 2:58 PM EDT 01/28/2025 2:58 PM EDT us Lilian Melendez [facility] LAB BLOOD ORDERABLES Final Res ult [facility] [place] [address] [place] [address] * (ABNORMAL) RETICULOCYTE PANEL (01/28/2025 2:58 PM EDT) Reticulocyte Percent 3.46(H) 0.80 - 1.90 % 01/28/2025 10:12 PM EDT [facility] Absolute Reticulocyte 149.1(H) 31.3 - 100.1 K/uL 01/28/2025 10:12 PM EDT [facility] Immature Reticulocyte Fraction 30.2(H) 2.5 - 20.6 % 01/28/2025 10:12 PM EDT [facility] Reticulocyte Hemoglobin 32.2 29.7 - 37.4 pg 01/28/2025 10:12 PM EDT [facility] Blood Venous blood specimen / Unknown Venipuncture / Unknown 01/28/2025 2:58 PM EDT 01/28/2025 2:58 PM EDT us Lilian Melendez [facility] LAB BLOOD ORDERABLES Final Res ult [facility] [address] [place] [address] documented in this encounter Visit Diagnoses Diagnosis renal anomaly, single gestation- Primary Encounter for anatomic survey 25 weeks gestation of state, incidental Family history of defect- Primary Family history of congenital anomalies High-risk in third trimester renal anomaly, single gestation Antepartum anemia complicating Anemia, antepartum Health counseling Other specified counseling Antepartum anemia complicating Anemia, antepartum documented in this encounter Additional Health Concerns Active Problems Noted Date Diagnosed Date OB Reminders 08/24/2024 documented as of this encounter Advance Directives * Full Code (Latest Code Status on File) Date Activated Date Inactivated Comments 11/30/2020 9:24 PM 12/03/2020 6:16 PM This order ref lects the patients wishes and were consensually agreed upon. Care Teams Street Light Mechanic Relationship Specialty Start Date End Date Ivory Sykes MD [address] [place] [address] PCP - General Family Medicine 11/14/17 documented as of this encounter
--- OUTSIDE RECORDS SUMMARY | 2025-02-17 04:13 | External Medical Summary ---
Author Name Unknown Address Unknown Organization [id number]:[facility] - [address] [place] [address] Laboratory Report Ordering Provider Test Date Status LUPE VALDEZ 01/28/2025 14:58:19 Final Observation Date Value Abnormality Reference (Units ) Status Ferritin 01/28/2025 14:58:19 366 Above high normal 13 -150 (ng/mL) Final Performing Location [facility] - [address] [place] [address]
--- OUTSIDE RECORDS SUMMARY | 2025-02-17 04:13 | External Medical Summary ---
Author Name Unknown Address Unknown Organization [id number]:[facility] [place] [address] Laboratory Report Ordering Provider Test Date Status LUPE VALDEZ 01/28/2025 14:58:19 Final Observation Date Value Abnormality Reference (Units ) Status Retic, % (auto) 01/28/2025 14:58:19 3.46 Above high normal 0.80-1.90 (%) Final Reticulocytes, Absolute 01/28/2025 14:58:19 149.1 Above high normal 31.3-100.1 (K/uL) Final Reticulocyte fraction, immature 01/28/2025 14:58:19 30.2 Above high normal 2.5-20.6 (%) Final Reticulocyte HGB 01/28/2025 14:58:19 32.2 29.7-37.4 (pg) Final Performing Location [facility] [address] [facility] [address]
--- OUTSIDE RECORDS SUMMARY | 2025-02-17 04:13 | External Medical Summary ---
Author Name Unknown Address Unknown Organization [id number]:[facility] [place] - [address] [place] [address] Laboratory Report Ordering Provider Test Date Status LUPE VALDEZ 01/28/2025 14:58:19 Final Observation Date Value Abnormality Reference (Units ) Status Iron 01/28/2025 14:58:19 58 33-151 (ug /dL) Final Iron-binding capacity 01/28/2025 14:58:19 390 250-425 (ug/dL) Final Transferrin Sat % 01/28/2025 14:58:19 15 15 -55 (%) Final Performing Location [facility] [place] - [address] [place] [address]
--- OUTSIDE RECORDS SUMMARY | 2025-02-17 04:13 | External Medical Summary | Summary of Care ---
Author Name Unknown Organization [facility] Address [address] [facility] [place] [address] Phone [phone] Care Team Providers Care Concrete Laborer Name Role Phone Ivory Sykes MD Primary Care Provider Reason for Visit * Reason Comments Healthy Beginnings Return Encounter Details Date Type Department Care Team (Late st Contact Info) Description 01/28/2025 2:00 PM EDT Office Visit Gynecology/Obstetri malini Crooks [address] [place] [address] Mimi Andino MD [address] [facility] [place] [address] Nurse Valeriy Healthy [facility] Return Martha [address] [facility] [place] [address] 37 weeks gestation of *; Family history of defect; High-risk in third trimester; renal anomaly, single gestation; Health counseling; Antepartum anemia complicating Allergies No known active [...] Date resolved nutrition [facility] Consuelo Bell RN 11/13/2024 Dental visits [...] and vomiting during 05/25/2022 06/22/2022 Single liveborn delivered vaginally 12/01/2020 05/25/2022 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 Non urgent echocardiogram Umbilical cord cyst during p regnancy, antepartum 08/25/2020 05/25/2022 Omphalocele of fetus in sing [place] , antepartum 07/21/2020 05/25/2022 Overview (11/01/2020): Scheduled for delivery at [place] after 39 weeks Assessment & Plan (08/25/2020 [...] have money to get more. Patient declined [place] Depression Scale Answer Date Recorded [place] Depression Scale Total 3 01/21/2025 The thought [...] AM EDT documented as of this encounter Last Filed Vital Signs Vital Sign Reading Time Taken Comments Blood Pressure 112/58 01/28/2025 2:04 PM EDT Pulse - - Temperature - - Respiratory Rate - - Oxygen Saturation - - Inhaled Oxygen Concentration - - Weight 97.1 kg (214 lb) 01/28/2025 2:04 PM EDT Height 162.6 cm (5' 4") 01/28/2025 2:04 PM EDT Body Mass Index 36.73 01/28/2025 2:04 PM EDT documented in this encounter Progress Notes * Mimi Andino MD - 01/28/2025 2:25 PM EDT Images from the original note were not included. Subjective Ashley Maynard is a 30 year old female presenting for Healthy Beginnings Return History of Present Illness The patient is a 30 year old who presents for a routine visit. She reports sporadic contractions but denies consistent contractions, vaginal bleeding, or leaking. She is eager for the to conclude and to have the baby.' The patient has been taking iron tablets for anemia since her blood work was done earlier in the . She is scheduled for an iron infusion today. The patient has a family history of defects, with with the fetus having only one kidney. She has been seen by maternal medicine for this reason. The patient also has two other children, all boys, who are approximately two years apart in age. S Objective BP 112/58 | Ht 1.626 m (5' 4") | Wt 97.1 kg (214 lb) | LMP 05/11/2024 | BMI 36.73 kg/m² | BSA 2.09m² Physical Exam [facility] : 39 cm heart rate 158 bpm. Results RADIOLOGY ultrasound: Unilateral renal agenesis Assessment and Plan Assessment & Plan 37 weeks 30-year-old female in third trimester with sporadic contractions. heart rate 158 bpm. Currentfetus has one kidney. - GBS negative. - Continue routine care. - Monitor movements; contact provider if less than ten movements in two hours. - Schedule follow-up in one week. renal anomaly, single gestation - Patient has been seen by the M team. Anemia Currently on iron tablets and received recent iron infusion. - Perform blood work to assess anemia status. Wrap-Up Text in this note was generated using an [employer] documentation service. I discussed the use of a device to record and summarize our discussion today. All persons present during the encounter consented to its use. documented in this encounter Nursing Notes * Yeni Boggs LPN - 01/28/2025 2:08 PM EDT [id number] Denies concerns. documented in this encounter Plan of Treatment Upcoming Encounters Date Type Department Care Team (Late st Contact Info) Description 01/29/2025 9:30 AM EDT Pharmacy Pharmacy, [place] [address] [place] [address] Clinic, [place] [address] [place] [address] 02/09/2025 10:30 AM EDT Office Visit Gynecology/Obstetrics Elisa Crooks [address] [place] [address] Silvino Forbes MD [address] [place] [address] Nurse Valeriy [facility] [address] [place] [address] Health Maintenance Due Date Last Done Comments Depression Screening 2009 Hepatitis B Vaccine (1 of 3 - 19+ 3-dose series) 01/23/2016 Lipid Panel 2017 COVID-19 Vaccine (1 - 2023-2 5 season) 2024 Influenza Vaccine [...] Not on filedocumented as of this encounter Visit Diagnoses Diagnosis renal anomaly, single gestation- Primary Encounter for anatomic survey 25 weeks gestation of state, incidental Family history of defect- Primary Family history of congenital anomalies High-risk in third trimester renal anomaly, single gestation Antepartum anemia complicating Anemia, antepartum Health counseling Other specified counseling 37 weeks gestation of - Primary state, incidental Family history of defect Family history of congenital anomalies High-risk in third trimester renal anomaly, single gestation Health counseling Other specified counseling Antepartum anemia [...] and were consensually agreed upon. Care Teams Concrete Laborer Relationship Specialty Start Date End Date Ivory Sykes MD [address] [place] [address] PCP - General Family Medicine 11/14/17 documented as of this encounter
--- OUTSIDE RECORDS SUMMARY | 2025-02-17 04:13 | External Medical Summary ---
Author Name Unknown Address Unknown Organization [id number]:[facility] [address] [place] [address] Laboratory Report Ordering Provider Test Date Status LUPE VALDEZ 01/28/2025 14:58:19 Final Observation Date Value Abnormality Reference (Units ) Status Nucleated erythrocytes/100 leukocytes [Ratio] in Blood by Automated count 01/28/2025 14:58:19 Final Performing Location [facility] - [address] [place] [address]
--- OUTSIDE RECORDS SUMMARY | 2025-02-17 04:13 | External Medical Summary | Summary of Care ---
Author Name Unknown Organization [facility] Address [address] [place] [address] Phone [phone] Care Team Providers Care Fireproof Door Maker Name Role Phone Ivory Sykes MD Primary Care Provider Reason for Visit * Reason Comments Anemia Follow-Up Encounter Details Date Type Department Care Team (Late st Contact Info) Description 01/29/2025 9:30 AM EDT Pharmacy Pharmacy, [place] [address] [place], [place] [id number] Clinic, Anemia [address] [place], [place] [id number] Antepartum anemia complicating * Allergies No known active allergiesdocumented as of this encounter (statuses as of 02/05/2025) Medications 27-0.8 MG TABS Take 1 Tablet by mouth in the morning. Active Iron (Ferrous Sulfate) 325 (65 Fe) MG Oral Tablet Take 1 Tablet by mouth in the morning. 90 Tablet 1 12/17/2024 Active documented as of this encounter (statuses as of 02/05/2025) Active Problems Problem Noted Date Diagnosed Date Iron deficiency anemia 12/16/2024 Antepartum anemia complicating 025 Overview (12/02/2024): Third tri labs Hgb 10.2. IV iron recommended Health counseling 11/13/2024 Overview (01/28/2025): Problem Action Taken Date entered Entered by Date resolved nutrition [facility] Consuelo Bell RN 11/13/2024 Dental [...] as of this encounter (statuses as of 02/05/2025) Resolved Problems Problem Noted Date Diagnosed Date [...] 05/25/2022 Overview (11/01/2020): Scheduled for delivery at [place] after 39 weeks Assessment & Plan (08/25/2020 [...] as of this encounter (statuses as of 02/05/2025) Immunizations Name Administration Dates Next Due Seasonal [...] have money to get more. Patient declined [place] Depression Scale Answer Date Recorded [place] Depression Scale Total 3 01/21/2025 The thought [...] 10/15/2024 Does the household have a re lar source of income? (Household - for ages [...] AM EDT documented as of this encounter Progress Notes * Chirssie Cha [facility] - 02/05/2025 10:12 AM EDT Patient Phone Numbers Called patient to review labs from 01/28/25. No answer, left message with results and instructions asbelow as well as call back number for any questions. GA: [id number] Estimated Date of Delivery: 02/15/25 Hgb: 12.0 g/dL TSAT: 15 % Ferritin: 366 ng/mL B12: 298 pg/mL FA: 16.6 ng/mL Patient is s/p Infed 1g on 01/01/25. Hgb is within target range for the 3rd trimester. Iron studies within target range. B12 and FA adequate. Plan: No anemia pharmacological intervention at this time. Given adequacy of anemia labs, as well as proximity to delivery, Anemia Clinic will sign off at this time. Please re-refer if needed. Thank you for involving us in this patient's care. Chrissie Cha, PharmD Clinical Pharmacist - Sample Examiner [facility] (P: [phone]) 02/05/2025 10:14 AM documented in this encounter Plan of Treatment Upcoming Encounters Date Type Department Care Team (Late st Contact Info) Description 02/09/2025 10:30 AM EDT Office Visit Gynecology/Obstetrics Elisa Crooks [address] [place] [address] Silvino Forbes MD [address] [place] [address] Nurse Valeriy [facility] Return Martha [address] [place] [address] Health Maintenance Due Date Last Done Comments [...] Author Reminders Care Plan OB Reminders No Mychart, Provider documented as of this encounter Medical [...] counseling Other specified counseling Antepartum anemia complicating - Primary Anemia, antepartum documented in this encounter Additional Health Concerns Active Problems Noted Date Diagnosed Date OB Reminders 08/24/2024 documented as of this encounter Advance Directives * Full Code (Latest Code Status on File) Date Activated Date Inactivated Comments 11/30/2020 9:24 PM 12/03/2020 6:16 PM This order ref lects the patients wishes and were consensually agreed upon. Care Teams Fireproof Door Maker Relationship Specialty Start Date End Date Ivory Sykes MD [address] [address] PCP - General Family Medicine 11/14/17 documented as of this encounter
--- OUTSIDE RECORDS SUMMARY | 2025-02-17 04:13 | External Medical Summary | Summary of Care ---
Author Name Unknown Organization [facility] Address [address] [facility] [place] [address] Phone [phone] Care Team Providers Care Um Rn Name Role Phone Ivory Sykes MD Primary Care Provider Reason for Visit * Reason Comments IV Therapy Infed Encounter Details Date Type Department Care Team (Latest Contact Info) Description 01/01/2025 11:00 AM EST Hem/Onc Treatment Hematology/Oncology Treatment, [address] [address] [place], Chair [address] Hem Onc [address] [address] Iron deficiency anemia, unspecified iron deficiency anemia type* Allergies No known active allergiesdocumented as of [...] Date resolved nutrition [facility] Consuelo Bell RN 11/13/2024 Dental visits [...] 05/25/2022 Overview (11/01/2020): Scheduled for delivery at [place] after 39 weeks Assessment & Plan (08/25/2020 [...] have money to get more. Patient declined [place] Depression Scale Answer Date Recorded [place] Depression Scale Total 2 07/20/2024 The thought of harming myself has occurred to me . Never 07/20/2024 Childcare Answer Date Recorded Do you feel [...] Sign Reading Time Taken Comments Blood Pressure 111/73 01/01/2025 12:51 PM EST Pulse 97 01/01/2025 12:51 PM EST Temperature 36.3 °C (97.4 °F) 01/01/2025 12:[address] Respiratory Rate 16 01/01/2025 12:00 PM EST Oxygen Saturation 93% 01/01/2025 12:51 PM EST Inhaled Oxygen Concentration - - Weight 93 kg (205 lb) 01/01/2025 11:00 AM EST Height - - Body Mass Index 35.19 12/17/2024 9:17 AM EST documented in this encounter Nursing Notes * Venessa Lugo RN - 01/01/2025 1:25 PM EST Goals: Patient will remain free from injury. Possible barriers to meeting goals: ambulating with pole Stability of the patient: Moderately stable - low risk of patient condition declining or worsening Summary regarding today's goals: Met: pt remained free of harm today Patient tolerated treatment well without any acute issues or problems. Patient left facility in stable condition and denied any further needs. * Hill Cabrera RN - 01/01/2025 12:00 PM EST Chair 9. Pt denies any issues at this time. IV inserted into LH without issues, positive blood return noted.Fluids infusing per orders. Safety and Risk for Injury Patient will remain free from injury. Ensure appropriate safety devices are available. Provide and maintain safe environment. Patient instructed on use of heat and massage functions where applicable. Patient shown how to operate the heat function of the chair and to alert nursing staff if the chair feels too warm. Patient instructed on the risk of potential vanegas while using the heat function. documented in this encounter Plan of Treatment Upcoming Encounters Date Type Department Care Team (Late st Contact Info) Description 02/09/2025 10:30 AM EDT Office Visit Gynecology/Obstetrics Elisa Crooks [address] [place] [address] Silvino Forbes MD [address] [place] [address] Nurse Valeriy [facility] Return Martha [address] [place] [address] Health Maintenance Due Date Last Done Comments [...] Anemia, antepartum Health counseling Other specified counseling Iron deficiency anemia, unspecified iron deficiency anemia type- Primary documented in this encounter Administered Medications Inactive Administered Medications - up to 3 most recent administrations Medication Order MAR Action Action Date Dose Rate Site Iron Dextran (INFeD) 975 mg in NSS 250 mL INFUSION 975 mg, IV Piggyback, ONCE, 1 dose, On Sat01/01/25 at 1245, Administer over 1 Hours, - Administer iron dextran infusion bag over 1 hour - Monitor for infusion reactions with vitals at 30 minutes and 60 minutes after starting the infusion. - If patient develops sign/symptoms of reaction or vital signs outside normal limits: 1) STOP infusion 2) CONTACT physicianIndications:Iron deficiency anemia, unspecified iron deficiency anemia type Start Infusion 01/01/2025 11:36 AM EST 975 mg 274.5 mL/hr Iron Dextran (Infed) IV Push TEST DOSE 25 mg IV Push, Administer over 0.5 Minutes, -Educate patient on signs/symptoms of infusion reaction -Administer 25 mg test dose of iron dextran before infusion bag -Observe patient for signs/symptoms of reaction with vital signs before test dose, then at 15 minutes after administering the test dose -If patient tolerates test dose with no reaction, proceed with iron dextran infusion -HOLD infusion and contact physician immediately if patient reacts to test dose, ONCE, 1 dose, On Sat01/01/25 at 1230Indications:Iron deficiency anemia, unspecified iron deficiency anemia type Given 01/01/2025 11:17 AM EST 25 mg NSS infusion Intravenous, at 50 mL/hr, PRN, Starting on Sat01/01/25 at 1230, Until Sat01/01/25 at 1727, Maintenance lineIndications:Iron deficiency anemia, unspecified iron deficiency anemia type Start Infusion 01/01/2025 11:26 AM EST 50 mL/hr sodium chloride 0.9 % flush central line 10 mL 10 mL, IV Push, PRN Other, IV Flush, Starting on Sat01/01/25 at 1117, Until Sat01/01/25 at 1727, For 24 hours, Do not flush if lock, PICC, or central line not in place; IV infusing or unable to flush.Indications:Iron deficiency anemia, unspecified iron deficiency anemia type Given 01/01/2025 11:18 AM EST 10 mL documented in this encounter Additional Health Concerns Active Problems Noted Date Diagnosed Date OB Reminders 08/24/2024 documented as of this encounter Advance Directives * Full Code (Latest Code Status on File) Date Activated Date Inactivated Comments 11/30/2020 9:24 PM 12/03/2020 6:16 PM This order ref lects the patients wishes and were consensually agreed upon. Care Teams Um Rn Relationship Specialty Start Date End Date Ivory Sykes MD [address] [place] [address] PCP - General Family Medicine 11/14/17 documented as of this encounter
--- OUTSIDE RECORDS SUMMARY | 2025-02-17 04:13 | External Medical Summary ---
Author Name Unknown Address Unknown Organization K01:[facility] - [address] [place] [address] Laboratory Report Ordering Provider Test Date Status LUPE VALDEZ 01/28/2025 14:58:19 Final Observation Date Value Abnormality Reference (Units ) Status Vitamin B12 01/28/2025 14:58:19 [phone] (pg/mL) Final Performing Location [facility] - [address] [place] [address]
--- OUTSIDE RECORDS SUMMARY | 2025-02-17 04:14 | External Medical Summary | Summary of Care ---
Author Name Unknown Organization [facility] Address [address] [facility] [place] [address] Phone [phone] Care Team Providers Care Communications Supervisor Name Role Phone Ivory Sykes MD Primary Care Provider Reason for Referral * (Within 10 days (routine)) Specialty Diagnoses / Procedures Referred By Larry t Referred To Contact Hyperbaric Medicine Diagnoses Antepartum anemia complicating Mirna Stewart PA-C [address] [place] [address] Phone: tel: fax: Referral ID Status Reason Start Date Expiration Date Visits Re quested Visits Authorized Question Answer Referral Priority Within 10 days (routine) Where should this appointment be scheduled? Jessi Reason for Visit * Reason Onset Date Comments Test Results 11/30/2024 Encounter Details Date Type Department Care Team (Late st Contact Info) Description 11/30/2024 Telephone Gynecology/Obstetrics [facility] [address] [place] [address] Mirna Stewart PA-C [address] [place] [address] Test Results Allergies No known active allergiesdocumented as of this encounter (statuses as of 01/04/2025) Medications 27-0.8 MG TABS Take 1 Tablet by mouth in the morning. Active documented as of this encounter (statuses as of 01/04/2025) Active Problems Problem Noted Date Diagnosed Date Iron deficiency anemia 12/16/2024 Antepartum anemia complicating 025 Overview (12/02/2024): Third tri labs Hgb 10.2. IV iron recommended Health counseling 11/13/2024 Overview (11/30/2024): Problem Action Taken Date entered Entered by Date resolved nutrition [facility] Consuelo Bell RN 11/13/2024 Dental visits Encouraged 11/13/2024 Consuelo Bell RN 11/13/2024 planned Will give pump later in 11/13/2024 Consuelo Bell RN 11/13/2024 Problem Action Taken Date entered Entered by Date resolved Current needs or questions Patient denies having any current needs or questions 11/30/2024 Consuelo Bell RN 11/30/2024 Assessment & Plan (12/17/2024 9:37 AM EST): [...] as of this encounter (statuses as of 01/04/2025) Resolved Problems Problem Noted Date Diagnosed Date [...] 05/25/2022 Overview (11/01/2020): Scheduled for delivery at [place] after 39 weeks Assessment & Plan (08/25/2020 [...] as of this encounter (statuses as of 01/04/2025) Immunizations Name Administration Dates Next Due Seasonal [...] have money to get more. Patient declined [place] Depression Scale Answer Date Recorded [place] Depression Scale Total 2 07/20/2024 The thought [...] No 10/15/2024 Does the household have a [facility] source of income? (Household - for ages [...] AM EDT documented as of this encounter Miscellaneous Notes * Telephone Encounter - Mirna Stewart PA-C - 12/02/2024 3:11 PM EST Referral placed. * Telephone Encounter - Consuelo Bell RN - 12/02/2024 1:02 PM EST Spoke with pt. She is agreeable to the referral. Message to Mirna. * Telephone Encounter - Mirna Stewart PA-C - 12/02/2024 12:28 PM EST Labs returned. Please let her know. She passed her glucose test. She is anemic. Hgb 10.2. Would recommend referral to IV iron at this time for treatment to get levels improved ahead of delivery. If agreeable, will place referral. Mirna Stewart PA-C documented in this encounter Plan of Treatment Upcoming Encounters Date Type Department Care Team (Late st Contact Info) Description 01/19/2025 8:15 AM EDT Office Visit Gynecology/Obstetrics Elisa Crooks [address] [place] [address] BackerTierra CRNP [address] [place] [address] Nurse Valeriy [facility] Return Martha [address] [place] [address] 01/20/2025 2:30 PM EDT Pharmacy Pharmacy, [place] [address] [facility] [id number] Clinic, Anemia [address] [place] [facility] [place] [address] Scheduled Referrals Name Type Priority Associated Diagnoses Orde r Schedule BLOOD MANAGEMENT REFERRAL Referral Within 10 days (routine) Antepartum anemia complicating Ordered: 12/02/2024 Health Maintenance Due Date Last Done Comments Hepatitis B Vaccine (1 of 3 - 19+ 3-dose series) 01/23/2016 Depression Screening 11/01/2021 11/01/2020 COVID-19 Vaccine (1 - 2023-2 5 season) 2024 Influenza Vaccine (FLU shot) (#1) 2024 Pap Smear 07/20/2027 07/20/2024, 05/26/2020 DTap/Tdap Vaccines [...] survey 25 weeks gestation of state, incidental Antepartum anemia complicating - Primary Anemia, antepartum Family history of defect- Primary Family history of congenital anomalies High-risk in third trimester renal anomaly, single gestation Antepartum anemia complicating Anemia, antepartum Health counseling Other specified counseling documented in this encounter Additional Health Concerns Active Problems Noted Date Diagnosed Date OB Reminders 08/24/2024 documented as of this encounter Advance Directives * Full Code (Latest Code Status on File) Date Activated Date Inactivated Comments 11/30/2020 9:24 PM 12/03/2020 6:16 PM This order ref lects the patients wishes and were consensually agreed upon. Care Teams Communications Supervisor Relationship Specialty Start Date End Date Ivory Sykes MD [address] [place] [address] PCP - General Family Medicine 11/14/17 documented as of this encounter
--- OUTSIDE RECORDS SUMMARY | 2025-02-17 04:14 | External Medical Summary | Summary of Care ---
Author Name Unknown Organization [facility] Address [address] [place] [address] Phone [phone] Care Team Providers Care Community Center Worker Name Role Phone Ivory Sykes MD Primary Care Provider Encounter Details Date Type Department Care Team (Late st Contact Info) Description 12/24/2024 8:00 AM EST Office Visit [facility] Tutor Obstetrics Maternal Medicine, [address] [place] [address] Ester Woody, DO [address] [place], [place] [phone] renal anomaly, single gestation*; Ultrasound for screening for growth restriction; 32 weeks gestation of Allergies No known active allergiesdocumented as of this encounter (statuses as of 12/24/2024) Medications 27-0.8 MG TABS Take 1 Tablet by mouth in the morning. Active Iron (Ferrous Sulfate) 325 (65 Fe) MG Oral Tablet Take 1 Tablet by mouth in the morning. 90 Tablet 1 12/17/2024 Active documented as of this encounter (statuses as of 12/24/2024) Active Problems Problem Noted Date Diagnosed Date Iron deficiency anemia 12/16/2024 Antepartum anemia complicating 025 Overview (12/02/2024): Third tri labs Hgb 10.2. IV iron recommended Health counseling 11/13/2024 Overview (11/30/2024): Problem Action Taken Date entered Entered by Date resolved nutrition [facility]2024 Consuelo Bell RN 11/13/2024 Dental [...] as of this encounter (statuses as of 12/24/2024) Resolved Problems Problem Noted Date Diagnosed Date [...] 05/25/2022 Overview (11/01/2020): Scheduled for delivery at [place] after 39 weeks Assessment & Plan (08/25/2020 [...] as of this encounter (statuses as of 12/24/2024) Immunizations Name Administration Dates Next Due Seasonal [...] have money to get more. Patient declined [place] Depression Scale Answer Date Recorded [place] Depression Scale Total 2 07/20/2024 The thought [...] as of this encounter Progress Notes * Ester Woody, DO - 12/24/2024 9:15 AM EST Ashley presented today at 32w3d for an ultrasound for the following indications: renal anomaly, single gestation Ultrasound for screening for growth restriction 32 weeks gestation of Ultrasound summary: Patient presented at 32w 3d for growth assessment. Normal growth with EFW 1948 g at 36%ile. Normal ALYSIA at 17.5 cm. Cephalic presentation. 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 I reviewed the ultrasound images. Ashley was given the opportunity to meet with me if she had any questions. Please refer to the ultrasound report for additional details about today's ultrasound examination. RECOMMENDATIONS: Follow up with MFM for ultrasound as clinically indicated. See prior formal MFM consultation note. Thank you for allowing us to participate in the care of this patient. Please call with any questions. Ester Woody DO 12/24/2024 9:15 AM documented in this encounter Plan of Treatment Upcoming Encounters Date Type Department Care Team (Late st Contact Info) Description 01/01/2025 12:30 PM EST Hem/Onc Treatment Hematology/Oncology Treatment, [place] [address] [place], [place] [phone] Arabella, Chair 9 Hem Onc Scene [address] [place] [address] 01/04/2025 7:30 AM EDT Office Visit Gynecology/Obstetric s Eilsa Crooks [address] [facility] [place] [address] Mirna Stewart PA-C [address] [place] [address] Nurse Valeriy Healthy Beginnings Return Martha [address] [facility] [place] [address] 01/04/2025 2:30 PM EDT Pharmacy Pharmacy, [place] [address] [place], [place] [phone] Clinic, An[place] [address] [place] [address] Health Maintenance Due Date Last Done Comments [...] Anemia, antepartum Health counseling Other specified counseling renal anomaly, single gestation- Primary Ultrasound for screening for growth restriction screening for growth retardation using ultrasonics 32 weeks gestation of state, incidental documented in this encounter Additional Health Concerns Active Problems Noted Date Diagnosed Date OB Reminders 08/24/2024 documented as of this encounter Advance Directives * Full Code (Latest Code Status on File) Date Activated Date Inactivated Comments 11/30/2020 9:24 PM 12/03/2020 6:16 PM This order ref lects the patients wishes and were consensually agreed upon. Care Teams Community Center Worker Relationship Specialty Start Date End Date Ivory Sykes MD [address] [place] [address] PCP - General Family Medicine 11/14/17 documented as of this encounter
--- OUTSIDE RECORDS SUMMARY | 2025-02-17 04:14 | External Medical Summary | Summary of Care ---
Author Name Unknown Organization [facility] Address [address] [facility] [place] [address] Phone [phone] Care Team Providers Care Piercing Specialist Name Role Phone Ivory Sykes MD Primary Care Provider Reason for Visit * Reason Comments Return Visit Encounter Details Date Type Department Care Team (Late st Contact Info) Description 01/21/2025 11:00 AM EDT Office Visit Gynecology/Obstetri malini Crooks 132 [facility] [place] [address] Tierra Mann CRNP 132 [facility] [place] [address] Nurse Edwin Crooks Beginnings Return Martha 132 [facility] [place] [address] High-risk in third trimester*; Family history of defect; renal anomaly, single gestation; Health counseling; Antepartum anemia complicating ; Vulvar cyst Allergies No known active allergiesdocumented as of this encounter (statuses as of 01/21/2025) Medications 27-0.8 MG TABS Take 1 Tablet by mouth in the morning. Active Iron (Ferrous Sulfate) 325 (65 Fe) MG Oral Tablet Take 1 Tablet by mouth in the morning. 90 Tablet 1 12/17/2024 Active documented as of this encounter (statuses as of 01/21/2025) Active Problems Problem Noted Date Diagnosed Date Iron deficiency anemia 12/16/2024 Antepartum anemia complicating 025 Overview (12/02/2024): Third tri labs Hgb 10.2. IV iron recommended Health counseling 11/13/2024 Overview (01/21/2025): Problem Action Taken Date entered Entered by [...] or questions 01/21/2025 Delaney Yin RN 01/21/2025 Assessment & Plan (12/17/2024 9:37 AM EST): [...] as of this encounter (statuses as of 01/21/2025) Resolved Problems Problem Noted Date Diagnosed Date [...] 05/25/2022 Overview (11/01/2020): Scheduled for delivery at [place] after 39 weeks Assessment & Plan (08/25/2020 [...] as of this encounter (statuses as of 01/21/2025) Immunizations Name Administration Dates Next Due Seasonal [...] have money to get more. Patient declined [place] Depression Scale Answer Date Recorded [place] Depression Scale Total 3 01/21/2025 The thought [...] No 10/15/2024 Does the household have a ascension macombr source of income? (Household - for ages [...] Sign Reading Time Taken Comments Blood Pressure 114/60 01/21/2025 11:07 AM EDT Pulse - - Temperature - - Respiratory Rate - - Oxygen Saturation - - Inhaled Oxygen Concentration - - Weight 96 kg (211 lb 9.6 oz) 01/21/2025 11:07 AM EDT Height - - Body Mass Index 36.32 12/17/2024 9:17 AM EST documented in this encounter Progress Notes * Tierra Mann CRNP - 01/21/2025 11:33 AM EDT 36w3d Baby moving well. No regular ctx, leaking/bleeding. Has regular growth scans with MFM. GBS today. Plans to use NFP and condoms for contraception. Noted a red bump on her labia this morning, not painful. 0.75 mm non-tender nodule on R labia minora, yellow, no erythema or drainage. Does not appear infected. Recommend applying warm compresses several times a day; if site becomes more painful, swollen, or erythematous, return for I&D. She's agreeable. [employer] Executive Director Documentation Provider requested associate automation engineer. Name of associate automation engineer: MONIKA Mehta documented in this encounter Nursing Notes * Delaney Yin, RN - 01/21/2025 11:13 AM EDT Patient seen by [facility] Auto Mechanic Supervisor. Patient denies any questions or concerns. have you cut down with your smoking NA have you quit NA have you seen a delicatessen department manager No have you seen a manager social No are you receiving counseling No have you received dental care during your No are you enrolled in WIC yes do you receive food stamps or guzman assistance No Delaney Yin RN * Berta Escamilla MED ASSIST - 01/21/2025 11:10 AM EDT Pt notice a bump on the inside of vagina, would like checked out. No pain and Is red. documented in this encounter Plan of Treatment Upcoming Encounters Date Type Department Care Team (Late st Contact Info) Description 01/25/2025 2:30 PM EDT Pharmacy Pharmacy, [place] [address] [place] [address] Clinic, [facility] [address] [place] [address] 01/28/2025 2:00 PM EDT Office [facility] [address] [place] [address] Mimi Andino MD [address] [place] [address] Nurse Valeriy Healthy Beginnings Return [facility] [address] [place] [address] Pending Results Name Type Priority Associated Diagnoses Date /Time GROUP B STREP CULTURE/PCR Lab Routine High-risk in third trimester 01/21/2025 11:38 AM EDT Scheduled Orders Name Type Priority Associated Diagnoses Orde r Schedule GROUP B STREP CULTURE/PCR Lab Routine High-risk in third trimester Expected: 01/21/2025, Expires: 01/21/2026 Health Maintenance Due Date Last Done Comments Hepatitis B Vaccine (1 of 3 - 19+ 3-dose series) 01/23/2016 Lipid Panel 2017 Depression Screening 11/01/2021 11/01/2020 COVID-19 Vaccine (1 [...] Anemia, antepartum Health counseling Other specified counseling High-risk in third trimester- Primary Family history of defect Family history of congenital anomalies renal anomaly, single gestation Health counseling Other specified counseling Antepartum anemia complicating Anemia, antepartum Vulvar cyst Other specified noninflammatory disorder of vulva and perineum documented in this encounter Additional Health Concerns Active Problems Noted Date Diagnosed Date OB Reminders 08/24/2024 documented as of this encounter Advance Directives * Full Code (Latest Code Status on File) Date Activated Date Inactivated Comments 11/30/2020 9:24 PM 12/03/2020 6:16 PM This order ref lects the patients wishes and were consensually agreed upon. Care Teams Piercing Specialist Relationship Specialty Start Date End Date Ivory Sykes MD [address] [place] [address] PCP - General Family Medicine 11/14/17 documented as of this encounter
--- OUTSIDE RECORDS SUMMARY | 2025-02-17 04:14 | External Medical Summary ---
Author Name Unknown Address Unknown Organization [id number]:LABORATORY [facility] - [address] [place] [address] Laboratory Report Ordering Provider Test Date Status LUPE VALDEZ 01/28/2025 14:58:19 Final Observation Date Value Abnormality Reference (Units ) Status Folic Acid 01/28/2025 14:58:19 16.6 >4.5 (ng/ mL) Final Performing Location LABORATORY [facility] - [address] [place] [address]
--- OUTSIDE RECORDS SUMMARY | 2025-02-17 04:14 | External Medical Summary | Summary of Care ---
Author Name Unknown Organization [facility] Address [address] [place] [address] Phone [phone] Care Team Providers Care Licensing Specialist Name Role Phone Ivory Sykes MD Primary Care Provider Encounter Details Date Type Department Care Team (Late st Contact Info) Description 12/21/2024 Orders Only Pharmacy, [place] [address] [place] [address] [facility] [address] [place], [place] [phone] Allergies No known active allergiesdocumented as of this encounter (statuses as of 01/01/2025) Medications 27-0.8 MG TABS Take 1 Tablet by mouth in the morning. Active Iron (Ferrous Sulfate) 325 (65 Fe) MG Oral Tablet Take 1 Tablet by mouth in the morning. 90 Tablet 1 12/17/2024 Active documented as of this encounter (statuses as of 01/01/2025) Active Problems Problem Noted Date Diagnosed Date Iron deficiency anemia 12/16/2024 Antepartum anemia complicating 025 Overview (12/02/2024): Third tri labs Hgb 10.2. IV iron recommended Health counseling 11/13/2024 Overview (11/30/2024): Problem Action Taken Date entered Entered by Date resolved nutrition [facility]/13/2024 Consuelo Bell RN 11/13/2024 Dental visits [...] as of this encounter (statuses as of 01/01/2025) Resolved Problems Problem Noted Date Diagnosed Date [...] 05/25/2022 Overview (11/01/2020): Scheduled for delivery at [place] after 39 weeks Assessment & Plan (08/25/2020 [...] as of this encounter (statuses as of 01/01/2025) Immunizations Name Administration Dates Next Due Seasonal [...] have money to get more. Patient declined [place] Depression Scale Answer Date Recorded [place] Depression Scale Total 2 07/20/2024 The thought [...] Team (Late st Contact Info) Description 01/01/2025 11:00 AM EST Hem/Onc Treatment Hematology/Oncology Treatment, [place] [address] [place] [address] Arabella, Chair 6 Hem Onc Scenery [address] [facility] [address] 01/04/2025 7:30 AM EDT Office Visit Gynecology/Obstetric s Elisa Crooks [address] [place] [address] Mirna Stewart PA-C [address] [place] [address] Nurse Valeriy Healthy Beginnings Return Martha [address] [place] [address] 01/04/2025 2:30 PM EDT Pharmacy Pharmacy, [place] [address] [place] [address] [facility], [facility] [address] [place] [address] Health Maintenance Due Date Last Done Comments Hepatitis B Vaccine (1 of 3 - 19+ 3-dose series) 01/23/2016 Depression Screening 11/01/2021 11/01/2020 COVID-19 Vaccine ( - 2023-2 5 season) [...] Not on filedocumented as of this encounter Additional Health Concerns Active Problems Noted Date Diagnosed Date OB Reminders 08/24/2024 documented as of this encounter Advance Directives * Full Code (Latest Code Status on File) Date Activated Date Inactivated Comments 11/30/2020 9:24 PM 12/03/2020 6:16 PM This order ref lects the patients wishes and were consensually agreed upon. Care Teams Licensing Specialist Relationship Specialty Start Date End Date Ivory Sykes MD [address] [facility] [place] [address] PCP - General Family Medicine 11/14/17 documented as of this encounter
--- OUTSIDE RECORDS SUMMARY | 2025-02-17 04:14 | External Medical Summary | Summary of Care ---
Author Name Unknown Organization [facility] Address [address] [place] [address] Phone [phone] Care Team Providers Care Grain Spouter Name Role Phone Ivory Sykes MD Primary Care Provider Encounter Details Date Type Department Care Team (Late st Contact Info) Description 12/21/2024 Orders Only Pharmacy, [place] [address] [place] [address] [facility] [address] [place], [place] [phone] Allergies No known active allergiesdocumented as of [...] Date resolved nutrition [facility]24 Consuelo Bell RN 11/13/2024 Dental visits [...] 05/25/2022 Overview (11/01/2020): Scheduled for delivery at [place] after 39 weeks Assessment & Plan (08/25/2020 [...] have money to get more. Patient declined [place] Depression Scale Answer Date Recorded [place] Depression Scale Total 2 07/20/2024 The thought [...] 11:00 AM EST Hem/Onc Treatment Hematology/Oncology Treatment, [place] [address] [place] [address] Arabella, Chair 6 Hem Onc Scenery [address] [facility] [address] 01/04/2025 7:30 AM EDT Office Visit Gynecology/Obstetric s Elisa Crooks [address] [place] [address] Mirna Stewart PA-C [address] [place] [address] Nurse Valeriy Healthy Beginnings Return Martha [address] [facility] [place] [address] 01/04/2025 2:30 PM EDT Pharmacy Pharmacy, [place] [address] [place] [address] [facility], [facility] [address] [place] [address] Health Maintenance Due Date Last Done Comments [...] and were consensually agreed upon. Care Teams Grain Spouter Relationship Specialty Start Date End Date Ivory Sykes MD [address] [facility] [place] [address] PCP - General Family Medicine 11/14/17 documented as of this encounter
--- OUTSIDE RECORDS SUMMARY | 2025-02-17 04:14 | External Medical Summary | Summary of Care ---
Author Name Unknown Organization [facility] Address [address] [facility] [place] [address] Phone [phone] Care Team Providers Care Packager Head Name Role Phone Ivory Sykes MD Primary Care Provider Reason for Visit * Reason Comments Return Visit Encounter Details Date Type Department Care Team (Late st Contact Info) Description 01/21/2025 11:00 AM EDT Office Visit Gynecology/Obstetri malini Crooks 132 [facility] [place] [address] Tierra Mann CRNP [address] [facility] [place] [address] Nurse Edwin Crooks Beginnings Return Martha 132 [facility] [place] [address] High-risk in third trimester*; Family history of [...] 05/25/2022 Overview (11/01/2020): Scheduled for delivery at [place] after 39 weeks Assessment & Plan (08/25/2020 [...] have money to get more. Patient declined [place] Depression Scale Answer Date Recorded [place] Depression Scale Total 3 01/21/2025 The thought [...] No 10/15/2024 Does the household have a [facility] source of income? (Household - for [...] or erythematous, return for I&D. She's agreeable. Liquor Establishment Manager Documentation Provider requested product grader. Name of product grader: MONIKA Mehta documented in this encounter Nursing Notes * Delaney Yin, RN - 01/21/2025 11:13 AM EDT Patient seen by [facility] Border Measurer. Patient denies any questions or concerns. have you cut down with your smoking NA have you quit NA have you seen a cabin cleaner No have you seen a dialysis social worker No are you receiving counseling No have [...] Description 01/25/2025 2:30 PM EDT Pharmacy Pharmacy, [place] [address] [place] [address] Clinic, [facility] [address] [place] [address] 01/28/2025 2:00 PM EDT Office [facility] [address] [place] [address] Mimi Andino MD [address] [place] [address] Nurse Valeriy Healthy Beginnings Return [facility] [address] [place] [address] Pending Results Name Type Priority Associated Diagnoses [...] and were consensually agreed upon. Care Teams Packager Head Relationship Specialty Start Date End Date Ivory Sykes MD [address] [place] [address] PCP - General Family Medicine 11/14/17 documented as of this encounter
--- OUTSIDE RECORDS SUMMARY | 2025-02-17 04:14 | External Medical Summary ---
Author Name Unknown Address Unknown Organization K0G:LABORATORY [place] [facility] - [address] [place] [address] Laboratory Report Ordering Provider Test Date Status LUPE VALDEZ 01/28/2025 14:58:19 Final Observation Date Value Abnormality Reference (Units ) Status SYNC LEUKOCYTES IN BLOOD BY AUTOMATED COUNT 01/28/2025 14:58:19 8.88 4.00-10.80 (K/uL) Final Segs 01/28/2025 14:58:19 63.3 40.0-75.0 (%) Final Lymphs % 01/28/2025 14:58:19 27.1 18.0-42.0 (%) Final Monos 01/28/2025 14:58:19 8.8 1.0-11.0 (%) Final Eosinophils 01/28/2025 14:58:19 0.6 0.0-6.0 (%) Final Basos 01/28/2025 14:58:19 0.2 0.0-2.0 (%) Final Absolute Segs 01/28/2025 14:58:19 5.62 1.80-7.70 (K/uL) Final Lymphs, absolute 01/28/2025 14:58:19 2.41 1.00-4.80 (K/ul) Final Monos, Abs 01/28/2025 14:58:19 0.78 0.00-1.10 (K/uL) Final Eos, Abs 01/28/2025 14:58:19 0.05 0.00-0.70 (K/uL) Final Basos, Abs 01/28/2025 14:58:19 0.02 0.00-0.20 (K/uL) Final Performing Location LABORATORY [place] [facility] 0 - [address] [place] [address]
--- OUTSIDE RECORDS SUMMARY | 2025-02-17 04:14 | External Medical Summary ---
Author Name Unknown Address Unknown Organization [id number]:LABORATORY [place] [address] [place] [address] Laboratory Report Ordering Provider Test Date Status MARTIR MOLINA 01/21/2025 11:38:47 Final Observation Date Value Abnormality Reference (Units ) Status Streptococcus agalactiae DNA [Presence] in Specimen by PETE with probe detection 01/21/2025 11:38:47 Negative Negative Final No Group B Streptococcus det ected by culture-enhanced PCR (amplified probe). GBS GBSCT - [facility] 01/21/2025 11:38:47 0.0 Final GBS SPCCT - [facility] 01/21/2025 11:38:47 30.5 Final Performing Location LABORATORY [facility] - [address] [place] [address]
--- OUTSIDE RECORDS SUMMARY | 2025-02-17 04:14 | External Medical Summary | Summary of Care ---
Author Name Unknown Organization [facility] Address [address] [place] [address] Phone [phone] Care Team Providers Care Fire Protection Designer Name Role Phone Ivory Sykes MD Primary Care Provider Encounter Details Date Type Department Care Team (Late st Contact Info) Description 12/21/2024 Orders Only Pharmacy, [place] [address] [place] [address] [facility] [address] [place], [place] [phone] Allergies No known active allergiesdocumented as of [...] Date resolved nutrition [facility]2024 Consuelo Bell RN 11/13/2024 [...] 05/25/2022 Overview (11/01/2020): Scheduled for delivery at [place] after 39 weeks Assessment & Plan (08/25/2020 [...] have money to get more. Patient declined [employer] Depression Scale Answer Date Recorded [employer] Depression Scale Total 2 07/20/2024 The thought [...] 11:00 AM EST Hem/Onc Treatment Hematology/Oncology Treatment, [place] [address] [place] [address] Arabella, Chair 6 Hem Onc Scenery [address] [facility] [address] 01/04/2025 7:30 AM EDT Office Visit Gynecology/Obstetric s Elisa Crooks [address] [place] [address] Mirna Stewart PA-C [address] [place] [address] Nurse Valeriy Healthy Beginnings Return Martha [address] [facility] [place] [address] 01/04/2025 2:30 PM EDT Pharmacy Pharmacy, [place] [address] [place] [address] [facility], [facility] [address] [place] [address] Health Maintenance Due Date Last Done Comments [...] and were consensually agreed upon. Care Teams Fire Protection Designer Relationship Specialty Start Date End Date Ivoyr Sykes MD [address] [facility] [address] [place] [address] PCP - General Family Medicine 11/14/17 documented as of this encounter
--- OUTSIDE RECORDS SUMMARY | 2025-02-17 04:14 | External Medical Summary | Summary of Care ---
Author Name Unknown Organization [facility] Address [address] [place] [address] Phone [phone] Care Team Providers Care Barrel Reamer Name Role Phone Ivory Sykes MD Primary Care Provider Encounter Details Date Type Department Care Team (Late st Contact Info) Description 12/21/2024 Orders Only Pharmacy, [place] [address] [place] [address] [facility] [address], [place] [phone] Allergies No known active allergiesdocumented as of [...] Date resolved nutrition [facility] Consuelo Bell RN 11/13/2024 Dental [...] 05/25/2022 Overview (11/01/2020): Scheduled for delivery at [place] after 39 weeks Assessment & Plan (08/25/2020 [...] have money to get more. Patient declined Hematite Depression Scale Answer Date Recorded Hematite Depression Scale Total 2 07/20/2024 The thought [...] 11:00 AM EST Hem/Onc Treatment Hematology/Oncology Treatment, [place] [address] [place] [address] Arabella, Chair 6 Hem Onc Scenery [address] [facility] [address] 01/04/2025 7:30 AM EDT Office Visit Gynecology/Obstetric s Elisa Crooks [address] [place] [address] Mirna Stewart PA-C [address] [place] [address] Nurse Valeriy [facility] Return Martha [address] [place] [address] 01/04/2025 2:30 PM EDT Pharmacy Pharmacy, [place] [address] [place] [address] [facility], [facility] [address] [place] [address] Health Maintenance Due Date Last Done Comments [...] and were consensually agreed upon. Care Teams Barrel Reamer Relationship Specialty Start Date End Date Ivory Sykes MD [address] [place] [address] PCP - General Family Medicine 11/14/17 documented as of this encounter
--- OUTSIDE RECORDS SUMMARY | 2025-02-17 04:14 | External Medical Summary | Summary of Care ---
Author Name Unknown Organization [facility] Address [address] [place] [address] Phone [phone] Care Team Providers Care Concession Supervisor Name Role Phone Ivory Sykes MD Primary Care Provider Encounter Details Date Type Department Care Team (Late st Contact Info) Description 12/21/2024 Orders Only Pharmacy, [place] [address] [place] [address] [facility] [address] [place], [place] [phone] Allergies No known active allergiesdocumented as of [...] Date resolved nutrition [facility]/13/2024 Consuelo Bell RN 11/13/2024 Dental [...] 05/25/2022 Overview (11/01/2020): Scheduled for delivery at [place] after 39 weeks Assessment & Plan (08/25/2020 [...] have money to get more. Patient declined Castella Depression Scale Answer Date Recorded Castella Depression Scale Total 2 07/20/2024 The thought [...] 11:00 AM EST Hem/Onc Treatment Hematology/Oncology Treatment, [place] [address] [place] [address] Arabella, Chair 6 Hem Onc Scenery [address] [facility] [address] 01/04/2025 7:30 AM EDT Office Visit Gynecology/Obstetric s Elisa Crooks [address] [place] [address] Mirna Stewart PA-C [address] [place] [address] Nurse Valeriy [facility] Return Martha [address] [facility] [place] [address] 01/04/2025 2:30 PM EDT Pharmacy Pharmacy, [place] [address] [place] [address] [facility], [facility] [address] [place] [address] Health Maintenance Due Date Last Done Comments [...] and were consensually agreed upon. Care Teams Concession Supervisor Relationship Specialty Start Date End Date Ivory Sykes MD [address] [place] [address] PCP - General Family Medicine 11/14/17 documented as of this encounter
--- OUTSIDE RECORDS SUMMARY | 2025-02-17 04:14 | External Medical Summary | Summary of Care ---
Author Name Unknown Organization [facility] Address [address] [place] [address] Phone [phone] Care Team Providers Care Care Aide Name Role Phone Ivory Sykes MD Primary Care Provider Reason for Referral * Evaluate & Treat - Unlimited Visits (Within 10 days (routine)) - Authorized Specialty Diagnoses / Procedures Referred By Larry t Referred To Contact Pharmacist / Pharmacy Diagnoses BHANU (iron deficiency anemia) Mirna Stewart PA-C [address] [place] [address] Phone: tel: fax: Referral ID Status Reason Start Date Expiration Date Visits Requested Visits Authorized [id number] Authorized Specialty Services Required 12/02/2024 05/31/2025 99 99 Question Answer Referral Priority Within 10 days (routine) Where should this appointment be scheduled? [facility] Referring Provider Role: Specialist Specialty: dice dealer Reason for Referral: Anemia Comments Pharmacist Medication Therapy Management: Iron deficiency anemia Umair Mena RN Reason for Visit * Reason Onset Date Comments Blood Management Program 12/02/2024 Encounter Details Date Type Department Care Team (Late st Contact Info) Description 12/02/2024 Telephone Patient Blood Management, [place] [address] [place] [address] Mirna Stewart PA-C [address] [place] [address] Blood Management Program Allergies No known active allergiesdocumented as of this encounter (statuses as of 01/18/2025) Medications 27-0.8 MG TABS Take 1 Tablet by mouth in the morning. Active documented as of this encounter (statuses as of 01/18/2025) Active Problems Problem Noted Date Diagnosed Date Iron deficiency anemia 12/16/2024 Antepartum anemia complicating 025 Overview (12/02/2024): Third tri labs Hgb 10.2. IV iron recommended Health counseling 11/13/2024 Overview (11/30/2024): Problem Action Taken Date entered Entered by Date resolved nutrition [facility]/13[facility]2024 Consuelo Bell RN 11/13/2024 [...] as of this encounter (statuses as of 01/18/2025) Resolved Problems Problem Noted Date Diagnosed Date [...] 05/25/2022 Overview (11/01/2020): Scheduled for delivery at [place] after 39 weeks Assessment & Plan (08/25/2020 [...] as of this encounter (statuses as of 01/18/2025) Immunizations Name Administration Dates Next Due Seasonal [...] have money to get more. Patient declined Maywood Depression Scale Answer Date Recorded [place]wood Depression Scale Total 2 07/20/2024 The thought [...] No 10/15/2024 Does the household have a [facility] medical center[facility] source of income? (Household - for ages [...] encounter Miscellaneous Notes * Telephone Encounter - Umair Mena RN - 12/02/2024 3:20 PM EST Recommend IV iron per OB MTM guidelines. Patient agreeable, prefers infusion at [facility]. documented in this encounter Plan of Treatment Upcoming Encounters Date Type Department Care Team (Late st Contact Info) Description 01/20/2025 2:30 PM EDT Pharmacy Pharmacy, [place] [address] [place] [address] Clinic, [place] [address] [place] [address] 01/21/2025 11:00 AM EDT Office Visit Gynecology/Obstetrics Elisa Crooks [address] [facility] [place] [address] Tierra Mann CRNP [address] [place] [address] Nurse Valeriy [facility] Return Martha [address] [facility] [place] [address] Scheduled Referrals Name Type Priority Associated Diagnoses Orde r Schedule PHARMACIST MEDS THERAPY MGMT REFERRAL OP Referral Within 10 days (routine) BHANU (iron deficiency anemia) Ordered: 12/02/2024 Health Maintenance Due Date Last [...] survey 25 weeks gestation of state, incidental BHANU (iron deficiency anemia)- Primary Iron deficiency anemia, unspecified Family history of defect- Primary Family history [...] and were consensually agreed upon. Care Teams Care Aide Relationship Specialty Start Date End Date Ivory Sykes MD [address] [place] [address] PCP - General Family Medicine 11/14/17 documented as of this encounter
--- OUTSIDE RECORDS SUMMARY | 2025-02-17 04:14 | External Medical Summary | Summary of Care ---
Author Name Unknown Organization [facility] Address [address] [facility] [place] [address] Phone [phone] Care Team Providers Care Special Trackwork Blacksmith Name Role Phone Ivory Sykes MD Primary Care Provider Reason for Visit * Reason Comments [facility] Return Encounter Details Date Type Department Care Team (Late st Contact Info) Description 01/04/2025 7:30 AM EDT Office Visit Gynecology/Obstetri malini Crooks [address] [place] [address] Mirna Stewart PA-C [address] [place] [address] Nurse Edwin Crooks [facility] Return Martha [address] [facility] [place] [address] High-risk in third trimester*; Family history of [...] 05/25/2022 Overview (11/01/2020): Scheduled for delivery at [place] after 39 weeks Assessment & Plan (08/25/2020 [...] have money to get more. Patient declined Moorcroft Depression Scale Answer Date Recorded Moorcroft Depression Scale Total 2 07/20/2024 The thought [...] Sign Reading Time Taken Comments Blood Pressure 112/68 01/04/2025 7:43 AM EDT Pulse - - Temperature - - Respiratory Rate - - Oxygen Saturation - - Inhaled Oxygen Concentration - - Weight 92.5 kg (204 lb) 01/04/2025 7:43 AM EDT Height - - Body Mass Index 35.02 12/17/2024 9:17 AM EST documented in this encounter Progress Notes * Mirna Stewart PA-C - 01/04/2025 7:52 AM EDT 34w0d Doing well, no complaints. Last u/s with MFM on 12/24 at 36%ile. ALYSIA 17.5 cm. Follow up as clinically indicated. GBS next visit Unsure at present regarding contraceptive. Denies VB, LOF, contractions. Pos fm. RTC in 2 weeks Mirna Stewart PA-C * Katelyn Mcdaniel CMA - 01/04/2025 7:43 AM EDT 34w0d Denies any concerns Labor instructions given. documented in this encounter Nursing Notes * Renae Rubin RN - 01/04/2025 7:49 AM EDT Patient seen by [facility] Weapons Designer. Patient denies any questions or concerns. Renae Rubin RN documented in this encounter Plan of Treatment Upcoming Encounters Date Type Department Care Team (Late st Contact Info) Description 01/04/2025 2:30 PM EDT Pharmacy Pharmacy, [place] [address] [place] [address] Clinic, [facility] [address] [place] [address] 01/19/2025 8:15 AM EDT Office Visit Gynecology/Obstetrics Elisa Crooks [address] [place] [address] Tierra Mann CRNP [address] [place] [address] Nurse Valeriy [facility] Return Martha [address] [place] [address] Health Maintenance Due Date Last Done Comments [...] and were consensually agreed upon. Care Teams Special Trackwork Blacksmith Relationship Specialty Start Date End Date Ivory Sykes MD [address] [place] [address] PCP - General Family Medicine 11/14/17 documented as of this encounter
--- OUTSIDE RECORDS SUMMARY | 2025-02-17 04:14 | External Medical Summary | Summary of Care ---
Author Name Unknown Organization [facility] Address [address] [place] [address] Phone [phone] Care Team Providers Care Commercial Credit Head Name Role Phone Ivory Sykes MD Primary Care Provider Reason for Visit * Reason Comments Status Check Anemia Follow-Up Encounter Details Date Type Department Care Team (Late st Contact Info) Description 01/25/2025 2:30 PM EDT Pharmacy Pharmacy, [place] [address] [place], [place] [phone] Clinic, An[place] [address] [place] [address] Iron deficiency anemia, unspecified iron deficiency anemia type*; Antepartum anemia complicating Allergies No known active allergiesdocumented as of this encounter (statuses as of 01/25/2025) Medications 27-0.8 MG TABS Take 1 Tablet by mouth in the morning. Active Iron (Ferrous Sulfate) 325 (65 Fe) MG Oral Tablet Take 1 Tablet by mouth in the morning. 90 Tablet 1 12/17/2024 Active documented as of this encounter (statuses as of 01/25/2025) Active Problems Problem Noted Date Diagnosed Date Iron deficiency anemia 12/16/2024 Antepartum anemia complicating 025 Overview (12/02/2024): Third tri labs Hgb 10.2. IV iron recommended Health counseling 11/13/2024 Overview (01/21/2025): Problem Action Taken Date entered Entered by Date resolved nutrition [facility] Consuelo Bell RN 11/13/2024 [...] as of this encounter (statuses as of 01/25/2025) Resolved Problems Problem Noted Date Diagnosed Date [...] 05/25/2022 Overview (11/01/2020): Scheduled for delivery at [place] after 39 weeks Assessment & Plan (08/25/2020 [...] as of this encounter (statuses as of 01/25/2025) Immunizations Name Administration Dates Next Due Seasonal [...] have money to get more. Patient declined [place] Depression Scale Answer Date Recorded [place] Depression Scale Total 3 01/21/2025 The thought [...] as of this encounter Progress Notes * Lilian Melendez RPh - 01/25/2025 1:56 PM EDT CBCd, ferritin, iron screen, retic panel, B12, FA ordered for 01/28/25. Lilian Melendez, PharmD, BCPS Clinical Pharmacist [facility] (P: [phone]) 01/25/2025 1:56 PM * Mare Josue PHARM Tech - 01/25/2025 11:16 AM EDT Patient Phone Numbers Call to patient to schedule labs. Called pt, no ans, LVM for pt to have labs completed on same day of OB appt 01/28. Patient received Infed on 01/01. Labs due on 01/28. GA: 37w0d Estimated Date of Delivery: 02/15/25 Pharmacist - please place appropriate lab orders. Thank you, Mare Josue Cis Coordinator [facility] 01/25/2025,11:16 AM documented in this encounter Plan of Treatment Upcoming Encounters Date Type Department Care Team (Late st Contact Info) Description 01/28/2025 2:00 PM EDT Office Visit Gynecology/Obstetrics Elisa Crooks [address] [place] [address] Mimi Andino MD [address] [place] [address] Nurse [facility] Martha [address] [place] [address] 01/29/2025 9:30 AM EDT Pharmacy Pharmacy, [place] [address] [place] [address] Clinic, An[place] [address] [place] [address] Scheduled Orders Name Type Priority Associated Diagnoses Orde r Schedule CBC WITH WBC DIFFERENTIAL Lab Routine Antepartum anemia complicating Expected: 01/28/2025, Expires: 12/25/2025 IRON SCREEN, INCLUDING TIBC Lab Routine Antepartum anemia complicating Expected: 01/28/2025, Expires: 12/25/2025 FERRITIN Lab Routine Antepartum anemia complicating Expected: 01/28/2025, Expires: 12/25/2025 RETICULOCYTE PANEL Lab Routine Antepartum anemia complicating Expected: 01/28/2025, Expires: 12/25/2025 FOLIC ACID Lab Routine Antepartum anemia complicating Expected: 01/28/2025, Expires: 12/25/2025 VITAMIN B12 Lab Routine Antepartum anemia complicating Expected: 01/28/2025, Expires: 12/25/2025 Health Maintenance Due Date Last Done Comments Hepatitis B Vaccine (1 of 3 - 19+ 3-dose series) 01/23/2016 Lipid Panel 2017 Depression Screening 11/01/2021 COVID-19 Vaccine (1 - 2023-2 5 season) [...] anemia, unspecified iron deficiency anemia type- Primary Antepartum anemia complicating Anemia, antepartum documented in this encounter Additional Health Concerns Active Problems Noted Date Diagnosed Date OB Reminders 08/24/2024 documented as of this encounter Advance Directives * Full Code (Latest Code Status on File) Date Activated Date Inactivated Comments 11/30/2020 9:24 PM 12/03/2020 6:16 PM This order ref lects the patients wishes and were consensually agreed upon. Care Teams Commercial Credit Head Relationship Specialty Start Date End Date Ivory Sykes MD [address] [place] [address] PCP - General Family Medicine 11/14/17 documented as of this encounter
--- OUTSIDE RECORDS SUMMARY | 2025-02-17 04:14 | External Medical Summary | Summary of Care ---
Author Name Unknown Organization [facility] Address [address] [facility] [place] [address] Phone [phone] Care Team Providers Care Ecd Name Role Phone Ivory Sykes MD Primary Care Provider Encounter Details Date Type Department Care Team (Late st Contact Info) Description 01/28/2025 Orders Only PATIENT PORTAL DO NOT DELETE THIS DEPT USED BY [place] [id number] Allergies No known active allergiesdocumented as of [...] 05/25/2022 Overview (11/01/2020): Scheduled for delivery at [place] after 39 weeks Assessment & Plan (08/25/2020 [...] have money to get more. Patient declined [place] Depression Scale Answer Date Recorded [place] Depression Scale Total 3 01/21/2025 The thought [...] EDT Office Visit Gynecology/Obstetrics Elisa Crooks [address] [place] [address] Mimi Andino MD [address] [place] [address] Nurse Valeriy [facility] Return Martha 132 [place] [address] 01/29/2025 9:30 AM EDT Pharmacy Pharmacy, [place] [address] [facility] [place] [address] Clinic, An[place] [address] [place] [address] Health Maintenance Due Date Last Done Comments [...] Author Reminders Care Plan OB Reminders No Chadhart, Provider documented as of this encounter Medical [...] and were consensually agreed upon. Care Teams Ecd Relationship Specialty Start Date End Date Ivory Sykes MD [address] [place] [place] [address] PCP - General Family Medicine 11/14/17 documented as of this encounter
--- OUTSIDE RECORDS SUMMARY | 2025-02-17 04:14 | External Medical Summary | Summary of Care ---
Author Name Unknown Organization [facility] Address [address] [facility] [place] [address] Phone [phone] Care Team Providers Care Drafter Assistant Name Role Phone Ivory Sykes MD Primary Care Provider Reason for Visit * Reason Comments IV Therapy Infed Encounter Details Date Type Department Care Team (Latest Contact Info) Description 01/01/2025 11:00 AM EST Hem/Onc Treatment Hematology/Oncology Treatment, [address] [address] [place], Chair 6 Hem On[address] [address] Iron deficiency anemia, unspecified iron deficiency anemia [...] Date resolved nutrition [facility]20[facility] Consuelo Bell RN 11/13/2024 Dental [...] 05/25/2022 Overview (11/01/2020): Scheduled for delivery at [place] after 39 weeks Assessment & Plan (08/25/2020 [...] have money to get more. Patient declined [place] Depression Scale Answer Date Recorded [place] Depression Scale Total 2 07/20/2024 The thought [...] and denied any further needs. * Hill Cabrera, RN - 01/01/2025 12:00 PM EST Chair [...] Description 01/04/2025 7:30 AM EDT Office Visit Gynecology/Obstetrics Elisa Crooks [address] [place] [address] Mirna Stewart PA-C [address] [place] [address] Nurse Valeriy [facility] Return Martha [address] [place] [address] 01/04/2025 2:30 PM EDT Pharmacy Pharmacy, [place] [address] [place], [place] [phone] Clinic, [facility] [address] [place], [place] [phone] Health Maintenance Due Date Last Done Comments [...] and were consensually agreed upon. Care Teams Drafter Assistant Relationship Specialty Start Date End Date Ivory Sykes MD [address] [place] [address] PCP - General Family Medicine 11/14/17 documented as of this encounter
--- OUTSIDE RECORDS SUMMARY | 2025-02-17 04:15 | External Medical Summary | Summary of Care ---
Author Name Unknown Organization [facility] Address [address] [facility] [place] [address] Phone [phone] Care Team Providers Care Traffic Monitor Specialist Name Role Phone Ivory Sykes MD Primary Care Provider Reason for Visit * Reason Comments [facility] Return Encounter Details Date Type Department Care Team (Late st Contact Info) Description 12/17/2024 9:00 AM EST Office Visit Gynecology/Obstetri malini Crooks [address] [place] [address] Chrissie Gomez PA-C [address] [place] [address] Nurse Valeriy [facility] Return Martha [address] [facility] [place] [address] Family history of defect*; High-risk in third trimester; renal anomaly, single gestation; Antepartum anemia complicating ; Health counseling Allergies No known active allergiesdocumented as of this encounter (statuses as of 12/17/2024) Medications 27-0.8 MG TABS Take 1 Tablet by mouth in the morning. Active documented as of this encounter (statuses as of 12/17/2024) Active Problems Problem Noted Date Diagnosed Date [...] as of this encounter (statuses as of 12/17/2024) Resolved Problems Problem Noted Date Diagnosed Date [...] 05/25/2022 Overview (11/01/2020): Scheduled for delivery at [place] after 39 weeks Assessment & Plan (08/25/2020 [...] as of this encounter (statuses as of 12/17/2024) Immunizations Name Administration Dates Next Due Seasonal [...] have money to get more. Patient declined Kelly Depression Scale Answer Date Recorded Kelly Depression Scale Total 2 07/20/2024 The thought [...] Sign Reading Time Taken Comments Blood Pressure 126/68 12/17/2024 9:17 AM EST Pulse - - Temperature - - Respiratory Rate - - Oxygen Saturation - - Inhaled Oxygen Concentration - - Weight 89.8 kg (198 lb) 12/17/2024 9:17 AM EST Height 162.6 cm (5' 4") 12/17/2024 9:17 AM EST Body Mass Index 33.99 12/17/2024 9:17 AM EST documented in this encounter Progress Notes * Chrissie Gomez PA-C - 12/17/2024 9:34 AM EST Ashley Maynard is a 29 year old female here for her routine OB appointment at 31w3d Her Estimated Date of Delivery: 02/15/25 REVIEW OF SYSTEMS She affirms movement. Denies vaginal bleeding, LOF, contractions, headaches, vision changes, chest pain, RUQ pain. PHYSICAL EXAM: Filed Vitals: 12/17/24 0917 BP: 126/68 Weight: 89.8 kg (198 lb) Height: 1.626 m (5' 4") +FHT 120s/130s Fundal height 31 cm ASSESSMENT/PLAN Family history of defect (Primary) High-risk in third trimester renal anomaly, single gestation Antepartum anemia complicating - Currently seeing blood management Health counseling Supervision of - labor precautions and kick counts reviewed RTO in 2 weeks Chrissie Gomez PA-C 12/17/2024 documented in this encounter Nursing Notes * Consuelo Bell RN - 12/17/2024 9:36 AM EST Patient seen by [facility] Deputy Editor In Chief. * Yeni Boggs LPN - 12/17/2024 9:31 AM EST 31w3d Denies concerns. documented in this encounter Miscellaneous Notes * Assessment & Plan Note - Consuelo Bell RN - 12/17/2024 9:37 AM EST Associated Problem(s): Health counseling Problem Action Taken Date entered Entered by Date resolved Current needs or questions Patient denies having any current needs or questions 12/17/2024 Consuelo Bell RN 12/17/2024 documented in this encounter Plan of Treatment Upcoming Encounters Date Type Department Care Team (Late st Contact Info) Description 12/24/2024 8:00 AM EST Imaging Maternal Medicine Imaging, Martha Crooks [address] [place] [address] 01/04/2025 7:30 AM EDT Office Visit Gynecology/Obstetrics Elisa Crooks [address] [place] [address] Mirna Stewart PA-C [address] [place] [address] Nurse Valeriy [facility] Return Martha [address] [place] [address] Health Maintenance Due Date Last Done Comments [...] and were consensually agreed upon. Care Teams Traffic Monitor Specialist Relationship Specialty Start Date End Date Ivory Sykes MD [address] [place] [address] PCP - General Family Medicine 11/14/17 documented as of this encounter
--- OUTSIDE RECORDS SUMMARY | 2025-02-17 04:15 | External Medical Summary | Summary of Care ---
Author Name Unknown Organization [facility] Address [address] [place] [address] Phone [phone] Care Team Providers Care Bilingual Office Assistant Name Role Phone Ivory Sykes MD Primary Care Provider Reason for Visit * Reason Onset Date Comments Test Results 12/07/2024 Carrier Screenin g Results Encounter Details Date Type Department Care Team (Late st Contact Info) Description 12/07/2024 Telephone Clinic Lead Obstetrics Maternal Medicine, [place] [address] [place] [address] Fatou Mendoza CHRA Test Results (Carrier Screening Results) Allergies No known active allergiesdocumented as of this encounter (statuses as of 12/08/2024) Medications 27-0.8 MG TABS Take 1 Tablet by mouth in the morning. 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 Non urgent echocardiogram Umbilical cord cyst during p regnancy, antepartum 08/25/2020 05/25/2022 Omphalocele of fetus in [place] , antepartum 07/21/2020 05/25/2022 Overview (11/01/2020): Scheduled for delivery at [place] after 39 weeks Assessment & Plan (08/25/2020 [...] as of this encounter (statuses as of 12/08/2024) Immunizations Name Administration Dates Next Due Seasonal [...] have money to get more. Patient declined [place] Depression Scale Answer Date Recorded [place] Depression Scale Total 2 07/20/2024 The thought [...] encounter Miscellaneous Notes * Telephone Encounter - Marlen Damian, - 12/08/2024 9:26 AM EST LVM re negative g/t No other testing recommended as declined invasive studies at this time. Marlen Damian, 12/08/2024 9:27 AM * Telephone Encounter - Fatou Mendoza CHRA - 12/07/2024 10:13 AM EST Carrier Screening Results: - The patient completed carrier screening, which included 600 genes through [employer]. Patient was not a carrier for any of the conditions screened. Inheritance is not discussed, due to negative carrier screening. - Testing was negative for all other conditions. This is a screening test and residual risk exists even with negative testing. Partner testing/Additional testing: - Testing for carrier status in their partner is not recommended at this time due to the patient's negative results. - Since carrier screening was negative, there is no increased risk for their children to be affected with one of the conditions screened. Other information to note: - OF NOTE: Abnormal ultrasound findings noted. GC routed to review results and notify patient. - If an individual is identified to be a carrier of a genetic condition, their family members (especially first degree relatives) should consider genetic carrier screening to understand their reproductive risk. If an individual has negative carrier screening, their family members can still considergenetic carrier screening for their own reproductive risk assessment. ALEJANDRO Wolf 12/07/2024 10:13 AM documented in this encounter Plan of Treatment Upcoming Encounters Date Type Department Care Team (Late st Contact Info) Description 12/16/2024 4:00 PM EST Pharmacy Pharmacy, [place] [address] [place] [address] Clinic, [facility] [address] [place] [address] 12/17/2024 9:00 AM EST Office Visit Gynecology/Obstetrics Elisa Crooks [address] [place] [address] Chrissie Gomez PA-C [address] [place] [address] Nurse Valeriy [facility] Return Martha [address] [place] [address] 12/24/2024 8:00 AM EST Imaging Maternal Medicine Imaging, Martha Crooks [address] [place] [phone] Health Maintenance Due Date Last Done Comments [...] survey 25 weeks gestation of state, incidental Genetic testing- Primary Other investigation and testing for procreative management documented in this encounter Additional Health Concerns Active Problems Noted Date Diagnosed Date OB Reminders 08/24/2024 documented as of this encounter Advance Directives * Full Code (Latest Code Status on File) Date Activated Date Inactivated Comments 11/30/2020 9:24 PM 12/03/2020 6:16 PM This order ref lects the patients wishes and were consensually agreed upon. Care Teams Bilingual Office Assistant Relationship Specialty Start Date End Date Ivory Sykes MD [address] [place] [address] PCP - General Family Medicine 11/14/17 documented as of this encounter
--- OUTSIDE RECORDS SUMMARY | 2025-02-17 04:15 | External Medical Summary | Summary of Care ---
Author Name Unknown Organization [facility] Address [address] [facility] [place] [address] Phone [phone] Care Team Providers Care Primer And Powder Canning Leader Name Role Phone Ivory Sykes MD Primary Care Provider Reason for Visit * Reason Onset Date Comments Other 12/18/2024 InFed Encounter Details Date Type Department Care Team (Late st Contact Info) Description 12/18/2024 Telephone Hematology/Oncology Treatment, [place] [address] [place] [address] Ana Allen MD [address] [place] [address] Other (InFed) Allergies No known active allergiesdocumented as of this encounter (statuses as of 12/22/2024) Medications 27-0.8 MG TABS Take 1 Tablet by mouth in the morning. Active Iron (Ferrous Sulfate) 325 (65 Fe) MG Oral Tablet Take 1 Tablet by mouth in the morning. 90 Tablet 1 12/17/2024 Active documented as of this encounter (statuses as of 12/22/2024) Active Problems Problem Noted Date Diagnosed Date Iron deficiency anemia 12/16/2024 Antepartum anemia complicating 025 Overview (12/02/2024): Third tri labs Hgb 10.2. IV iron recommended Health counseling 11/13/2024 Overview (11/30/2024): Problem Action Taken Date entered Entered by Date resolved nutrition [facility] Consuelo Bell RN 11/13/2024 Dental [...] as of this encounter (statuses as of 12/22/2024) Resolved Problems Problem Noted Date Diagnosed Date [...] 05/25/2022 Overview (11/01/2020): Scheduled for delivery at [place] after 39 weeks Assessment & Plan (08/25/2020 [...] as of this encounter (statuses as of 12/22/2024) Immunizations Name Administration Dates Next Due Seasonal [...] have money to get more. Patient declined [place] Depression Scale Answer Date Recorded [place] Depression Scale Total 2 07/20/2024 The thought [...] encounter Miscellaneous Notes * Telephone Encounter - Alex Branham OSA - 12/22/2024 11:27 AM EST Patient scheduled and aware * Telephone Encounter - Daniella Wilkins OSA - 12/22/2024 9:28 AM EST Left message for pt. * Telephone Encounter - Sherry Conner RN - 12/21/2024 3:55 PM EST [place] is signed. Scheduling: please call patient to schedule 3 hour appt "infed" (Dr Ana Allen). Thanks! * Telephone Encounter - Tierra Stewart LPN - 12/18/2024 10:17 AM EST Order received for InFed [place] plan built and routed to p [phone] No prior authorization required Awaiting provider signature before scheduling patient. documented in this encounter Plan of Treatment Upcoming Encounters Date Type Department Care Team (Late st Contact Info) Description 12/23/2024 10:00 AM EST Pharmacy Pharmacy, [address] [address] Clinic, [address] [address] 12/24/2024 8:00 AM EST Imaging Maternal Medicine Imaging, Martha Crooks [address] [place] [phone] 01/01/2025 12:30 PM EST Hem/Onc Treatment Hematology/Oncology Treatment, [place] [address] [place] [phone] Park, Chair 9 Hem Onc Scen[address] [place] [address] 01/04/2025 7:30 AM EDT Office Visit Gynecology/Obstetric s Elisa Crooks [address] [place] [address] Mirna Stewart PA-C [address] [place] [address] Nurse Valeriy [facility] Return Martha [address] [place] [address] Health Maintenance Due Date Last Done Comments [...] and were consensually agreed upon. Care Teams Primer And Powder Canning Leader Relationship Specialty Start Date End Date Ivory Sykes MD [address] [place] [address] PCP - General Family Medicine 11/14/17 documented as of this encounter
--- OUTSIDE RECORDS SUMMARY | 2025-02-17 04:15 | External Medical Summary | Summary of Care ---
Author Name Unknown Organization [facility] Address [address] [place] [address] Phone [phone] Care Team Providers Care Recreation Therapy Aides Teacher Name Role Phone Ivory Sykes MD Primary Care Provider Reason for Visit * Reason Onset Date Comments Test Results 12/07/2024 Carrier Screenin g Results Encounter Details Date Type Department Care Team (Late st Contact Info) Description 12/07/2024 Telephone Cover Assembler Obstetrics Maternal Medicine, [place] [address] [place] [address] Fatou Mendoza CHRA Test Results (Carrier Screening Results) Allergies No known active allergiesdocumented as of this encounter (statuses as of 12/07/2024) Medications 27-0.8 MG TABS Take 1 Tablet by mouth in the morning. Active documented as of this encounter (statuses as of 12/07/2024) Active Problems Problem Noted Date Diagnosed Date [...] as of this encounter (statuses as of 12/07/2024) Resolved Problems Problem Noted Date Diagnosed Date [...] 05/25/2022 Overview (11/01/2020): Scheduled for delivery at [facility] after 39 weeks Assessment & Plan (08/25/2020 [...] as of this encounter (statuses as of 12/07/2024) Immunizations Name Administration Dates Next Due Seasonal [...] have money to get more. Patient declined [place] Depression Scale Answer Date Recorded [place] Depression Scale Total 2 07/20/2024 The thought [...] encounter Miscellaneous Notes * Telephone Encounter - Fatou Mendoza CHRA - 12/07/2024 10:13 AM EST Carrier Screening Results: - The patient completed carrier screening, which included 600 genes through [employer]. Patient was not a carrier for any [...] Description 12/16/2024 4:00 PM EST Pharmacy Pharmacy, [place] [address] [place] [address] Clinic, [facility] [address] [place] [address] 12/17/2024 9:00 AM EST Office Visit [facility]necology[facility]stetrics [facility] [place] [address] Chrissie Gomez PA-C [address] [place] [address] Nurse Valeriy Healthy [facility] Return Martha [address] [facility] [place] [address] 12/24/2024 8:00 AM EST Imaging Maternal Medicine Imaging, Martha Crooks [address] [place] [address] [place] [phone] Health Maintenance Due Date Last Done Comments [...] Author Reminders Care Plan OB Reminders No Karen, Provider documented as of this encounter Medical [...] and were consensually agreed upon. Care Teams Recreation Therapy Aides Teacher Relationship Specialty Start Date End Date Ivory Sykes MD [address] [facility] [place] [address] PCP - General Family Medicine 11/14/17 documented as of this encounter
--- OUTSIDE RECORDS SUMMARY | 2025-02-17 04:15 | External Medical Summary | Summary of Care ---
Author Name Unknown Organization [facility] Address [address] [facility] [place] [address] Phone [phone] Care Team Providers Care Electrical Technician Instructor Name Role Phone Ivory Sykes MD Primary Care Provider Reason for Visit * Reason Onset Date Comments Anemia Follow-Up 12/16/2024 * Evaluate & Treat - Unlimited Visits (Within 10 days (routine)) - Authorized Specialty Diagnoses / Procedures Referred By Larry gregorio Referred To Contact Pharmacist / Pharmacy Diagnoses BHANU (iron deficiency anemia) Mirna Stewart PA-C [address] [place] [address] Phone: tel: fax: Referral ID Status Reason Start Date Expiration Date Visits Requested Visits Authorized [id number] Authorized Specialty Services Required 12/02/2024 05/31/2025 99 99 Encounter Details Date Type Department Care Team (Late st Contact Info) Description 12/16/2024 4:00 PM [facility] Pharmacy Pharmacy, [place] [address] [place], [place] [id number] Clinic, [place] [address] [place] [address] Iron deficiency anemia, unspecified iron deficiency anemia type* Allergies No known active allergiesdocumented as of this encounter (statuses as of 12/16/2024) Medications 27-0.8 MG TABS Take 1 Tablet by mouth in the morning. Active documented as of this encounter (statuses as of 12/16/2024) Active Problems Problem Noted Date Diagnosed Date Iron deficiency anemia 12/16/2024 Antepartum anemia complicating 025 Overview (12/02/2024): Third tri labs Hgb 10.2. 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 Pt declined M referral and genetic screening for 2023 . High-risk 05/25/2022 Estimated Date of Delivery Comme nts Yes 02/15/2025 Based on last me nstrual period of 05/11/2024 documented as of this encounter (statuses as of 12/16/2024) Resolved Problems Problem Noted Date Diagnosed Date [...] 05/25/2022 Overview (11/01/2020): Scheduled for delivery at [place] after 39 weeks Assessment & Plan (08/25/2020 [...] as of this encounter (statuses as of 12/16/2024) Immunizations Name Administration Dates Next Due Seasonal [...] have money to get more. Patient declined [place] Depression Scale Answer Date Recorded [place] Depression Scale Total 2 07/20/2024 The thought [...] as of this encounter Progress Notes * Latosha Yeung, [facility] - 12/16/2024 1:46 PM EST Patient Phone Numbers Patient referred by Mirna Stewart PA-C for evaluation of anemia by the Anemia Clinic. Called patient to introduce role/clinic and to review labs from 11/30. NEIL. Hgb: 10.2 g/dL TSAT: 8 % Ferritin: 24 ng/mL GA: 31w2d Estimated Date of Delivery: 02/15/25 Hgb is below target range for the third trimester. Iron studies below target range. Oral iron replenishment inadequate or contraindicated. Patient qualifies for IV iron repletion. Tentative Plan: Iron dextran (INFeD) 1000 mg IV x 1 dose @ SP. Orders need to be placed and routed to appropriate parties if patient agreeable to intervention. Follow-up labs to be scheduled ~4-6 weeks after iron repletion completed if appropriate prior to delivery. Anemia Clinic will continue to follow. Thank you for allowing us to participate in the care of thispatient. Thanks, Latosha Yeung [facility] Clinical Pharmacist documented in this encounter Plan of Treatment Upcoming Encounters Date Type Department Care Team (Late st Contact Info) Description 12/17/2024 9:00 AM EST Office Visit Gynecology/Obstetrics Elisa Crooks [address] [place] [address] Chrissie Gomez PA-C [address] [place] [address] Nurse Valeriy Healthy Beginnings Return Martha [address] [facility] [place] [address] 12/24/2024 8:00 AM EST Imaging Maternal Medicine Imaging, Martha Crooks [address] [place] [phone] 12/30/2024 4:00 PM EST Pharmacy Pharmacy, [place] [address] [place], [place] [id number] Clinic, [facility] [address] [place] [address] Scheduled Referrals Name Type Priority Associated Diagnoses [...] survey 25 weeks gestation of state, incidental Iron deficiency anemia, unspecified iron deficiency anemia type- Primary documented in this encounter Additional Health Concerns Active Problems Noted Date Diagnosed Date OB Reminders 08/24/2024 documented as of this encounter Advance Directives * Full Code (Latest Code Status on File) Date Activated Date Inactivated Comments 11/30/2020 9:24 PM 12/03/2020 6:16 PM This order ref lects the patients wishes and were consensually agreed upon. Care Teams Electrical Technician Instructor Relationship Specialty Start Date End Date Ivroy Sykes MD [address] [place] [address] PCP - General Family Medicine 11/14/17 documented as of this encounter
--- OUTSIDE RECORDS SUMMARY | 2025-02-17 04:15 | External Medical Summary | Summary of Care ---
Author Name Unknown Organization [facility] Address [address] [place] [address] Phone [phone] Care Team Providers Care Ostomy Rn Name Role Phone Ivory Sykes MD Primary Care Provider Reason for Visit * Reason Onset Date Comments Anemia Follow-Up 12/17/2024 Encounter Details Date Type Department Care Team (Late st Contact Info) Description 12/17/2024 8:30 AM [facility] Pharmacy Pharmacy, [place] [address] [place] [address] Clinic, [place] [address] [place] [address] Iron deficiency anemia, unspecified iron deficiency anemia [...] resolved nutrition [facility] Consuelo Bell RN 11/13/2024 Dental [...] 05/25/2022 Overview (11/01/2020): Scheduled for delivery at [place] after 39 weeks Assessment & Plan (08/25/2020 [...] have money to get more. Patient declined [place] Depression Scale Answer Date Recorded [place] Depression Scale Total 2 07/20/2024 The thought [...] as of this encounter Progress Notes * Tre Mckinney, [facility] - 12/17/2024 12:28 PM EST Patient Phone Numbers Patient referred by Mirna Stewart PA-C for evaluation of anemia by the Anemia Clinic. Called patient to introduce role/clinic and to review labs from 11/30/24. Hgb: 10.2 g/dL TSAT: 8 % Ferritin: 24 ng/mL GA: 31w3d Estimated Date of Delivery: 02/15/25 Hgb is below target range for the third trimester. Iron studies below target range. Patient reports feeling very tired, COLLIER, otherwise denies symptoms of anemia. Oral iron replenishment inadequate or contraindicated. Patient qualifies for IV iron repletion. Plan: Iron dextran (INFeD) 1000 mg IV x 1 dose @ SP. Orders placed and routed to appropriate parties. Follow-up labs to be scheduled ~4-6 weeks after iron repletion completed if appropriate prior to delivery. Anemia Clinic will continue to follow. Thank you for allowing us to participate in the care of thispatient. Tre Mckinney, PharmD, [facility] Clinical Pharmacist Anemia Clinic P: [phone] F: [phone] 12/17/2024 12:34 PM Lab Results Component Value Date/Time HGB 10.2 (L) 11/30/2024 09:35 AM HGB 13.5 07/20/2024 10:17 AM HGB 12.5 11/09/2022 11:02 AM HGB 11.5 (L) 09/15/2020 10:23 AM HGB 12.7 05/26/2020 04:13 PM HGB 12.1 10/01/2019 12:34 PM No results found for: "HEMOGLOBIN-OUTSIDE LAB" Results for orders placed or performed in visit on 11/30/24 IRON SCREEN, INCLUDING TIBC Result Value Ref Range Iron 40 33 - 151 ug/dL Iron Binding Capacity 518 (H) 250 - 425 ug/dL Transferrin Saturation Percent 8 (L) 15 - 55 % Results for orders placed or performed in visit on 09/27/22 IRON SCREEN, INCLUDING TIBC Result Value Ref Range Iron 50 33 - 151 ug/dL Iron Binding Capacity 455 (H) 250 - 425 ug/dL Transferrin Saturation Percent 11 (L) 15 - 55 % No results found for: "TRANSFERRIN SAT %-OUTSIDE LAB" Lab Results Component Value Date/Time FERRITIN - [facility] 24 11/30/2024 09:35 AM FERRITIN - [facility] 22 09/27/2022 03:02 PM No results found for: "FERRITIN-OUTSIDE LAB" documented in this encounter Miscellaneous Notes * Addendum Note - Tre Mckinney RPh - 12/17/2024 2:49 PM ESTAddended by: TRE MCKINNEY on: 12/17/2024 02:49 PM Modules accepted: Orders documented in this encounter Plan of Treatment Upcoming Encounters Date Type Department Care Team (Late st Contact Info) Description 12/23/2024 10:00 AM EST Pharmacy Pharmacy, [address] [address] Clinic, [place] [address] [place] [address] 12/24/2024 8:00 AM EST Imaging Maternal Medicine Imaging, Martha Crooks [address] [place] [phone] 01/04/2025 7:30 AM EDT Office Visit Gynecology/Obstetrics [place] Valeriy [address] [place] [address] Mirna Stewart PA-C [address] [place] [address] Nurse Valeriy Healthy [facility] Return Martha [address] [place] [address] Health Maintenance Due Date Last Done Comments [...] and were consensually agreed upon. Care Teams Ostomy Rn Relationship Specialty Start Date End Date Ivory Sykes MD [address] [place] [address] PCP - General Family Medicine 11/14/17 documented as of this encounter
--- OUTSIDE RECORDS SUMMARY | 2025-02-17 04:15 | External Medical Summary | Summary of Care ---
Author Name Unknown Organization [facility] Address [address] [place] [address] Phone [phone] Care Team Providers Care Gel Coat Sprayer Name Role Phone Ivory Sykes MD Primary Care Provider Encounter Details Date Type Department Care Team (Late st Contact Info) Description 12/17/2024 Telephone Pharmacy, [place] [address] [place] [address] Clinic, [facility] [address] [place] [address] Allergies No known active allergiesdocumented as of [...] 05/25/2022 Overview (11/01/2020): Scheduled for delivery at [place] after 39 weeks Assessment & Plan (08/25/2020 [...] have money to get more. Patient declined [place] Depression Scale Answer Date Recorded [place] Depression Scale Total 2 07/20/2024 The thought [...] Miscellaneous Notes * Telephone Encounter - Fatou Morgan CPhT - 12/17/2024 1:44 PM EST Caller's name: [facility] call back number(OFFICE NUMBER FOR ): [phone] Reason for call: Returning Call Patient returning call to Anemia Clinic. Can be reached at number above. More likely to be available before 3PM. Thank you, Fatou Morgan CPhT Waste [employer] [facility] 12/17/2024,1:44 PM documented in this encounter Plan of Treatment Upcoming Encounters Date Type Department Care Team (Late st Contact Info) Description 12/23/2024 10:00 AM EST Pharmacy Pharmacy, [place] [address] [place] [address] Clinic, Anemia [facility] [place] [address] 12/24/2024 8:00 AM EST Imaging Maternal Medicine Imaging, Martha Crooks [address] [place] [phone] 01/04/2025 7:30 AM EDT Office Visit Gynecology/Obstetrics Elisa Crooks [address] [place] [address] Mirna Stewart PA-C [address] [place] [address] Nurse Valeriy Healthy [facility]nings Return Martha [address] [place] [address] Health Maintenance Due Date Last Done Comments [...] and were consensually agreed upon. Care Teams Gel Coat Sprayer Relationship Specialty Start Date End Date Ivory Sykes MD [address] [facility] [address] [place] [address] PCP - General Family Medicine 11/14/17 documented as of this encounter
--- OUTSIDE RECORDS SUMMARY | 2025-02-17 04:15 | External Medical Summary | Summary of Care ---
Author Name Unknown Organization [facility] Address [address] [place] [address] Phone [phone] Care Team Providers Care Health Worker Name Role Phone Ivory Sykes MD Primary Care Provider Reason for Visit * Reason Onset Date Comments Returning Call 12/17/2024 Encounter Details Date Type Department Care Team (Late st Contact Info) Description 12/17/2024 Telephone Centralized Clinical Pharmacy Services, Nicholas Rodríguez [address] [place] [address] [place] [address] Clinic, Anemia [address] [place] [address] Returning Call Allergies No known active allergiesdocumented as of [...] Date resolved nutrition Due date letter given [facility] 11/13/2024 Consuelo Bell RN 11/13/2024 Dental visits [...] 05/25/2022 Overview (11/01/2020): Scheduled for delivery at [place] after 39 weeks Assessment & Plan (08/25/2020 [...] 09/29/2020 Low-lying placenta 07/21/2020 0 High-risk 05/26/2020 07/29/20 22 documented as of this encounter (statuses [...] have money to get more. Patient declined [place] Depression Scale Answer Date Recorded [place] Depression Scale Total 2 07/20/2024 The thought [...] encounter Miscellaneous Notes * Telephone Encounter - Jolynn Ritchie PHARM Tech - 12/17/2024 10:08 AM EST Caller's name: [facility] call back number(OFFICE NUMBER FOR ): [phone] Reason for call: Patient called in, she said she is returning a missed call from yesterday. Please advise. Thank you, Jolynn Ritchie Pullman Conductor I [facility] ([facility]) 12/17/2024, 10:11 AM documented in this encounter Plan of Treatment Upcoming Encounters Date Type Department Care Team (Late st Contact Info) Description 12/23/2024 10:00 AM EST Pharmacy Pharmacy, [address] [address] Clinic, An[place] [address] [facility] Sridhar [place] [address] 12/24/2024 8:00 AM EST Imaging Maternal Medicine Imaging, Martha Crooks [address] [place] [phone] 01/04/2025 7:30 AM EDT Office Visit Gynecology/Obstetrics Elisa Crooks [address] [place] [address] Mirna Stewart PA-C [address] [place] [address] Nurse Valeriy Healthy Beginnings Return Martha [address] [place] [address] Health Maintenance Due Date Last Done Comments [...] and were consensually agreed upon. Care Teams Health Worker Relationship Specialty Start Date End Date Ivory Sykes MD [address] [place], [place] [address] PCP - General Family Medicine 11/14/17 documented as of this encounter
--- OUTSIDE RECORDS SUMMARY | 2025-02-17 04:15 | External Medical Summary | Summary of Care ---
Author Name Unknown Organization [facility] Address [address] [facility] [place] [address] Phone [phone] Care Team Providers Care Addressing Machine Operator Name Role Phone Ivory Sykes MD Primary Care Provider Reason for Visit * Reason Onset Date Comments Other 12/18/2024 InFed Encounter Details Date Type Department Care Team (Late st Contact Info) Description 12/18/2024 Telephone Hematology/Oncology Treatment, [place] [address] [place] [address] Ana Allen MD [address] [place] [...] Date resolved nutrition [facility] 11/13/2024 Consuelo Bell RN 11/13/2024 Dental [...] 05/25/2022 Overview (11/01/2020): Scheduled for delivery at [place] after 39 weeks Assessment & Plan (08/25/2020 [...] have money to get more. Patient declined [place] Depression Scale Answer Date Recorded [place] Depression Scale Total 2 07/20/2024 The thought [...] encounter Miscellaneous Notes * Telephone Encounter - Sherry Conner RN - 12/21/2024 3:55 PM EST [place] is signed. Scheduling: please call patient to schedule 3 hour appt "infed" (Dr Ana Allen). Thanks! * Telephone Encounter - Tierra Stewart LPN - 12/18/2024 10:17 AM EST Order received for InFed [place] to p [id number] No prior authorization required Awaiting provider signature before scheduling patient. documented in this encounter Plan of Treatment Upcoming Encounters Date Type Department Care Team (Late st Contact Info) Description 12/23/2024 10:00 AM EST Pharmacy Pharmacy, [place] [address] [place] [address] Clinic, [facility] [address] [place] [address] 12/24/2024 8:00 AM EST Imaging Maternal Medicine Imaging, Martha Mirandas [address] [place] [phone] 01/04/2025 7:30 AM EDT Office Visit Gynecology/Obstetrics Elisa Mirandas [address] [place] [address] Mirna Stewart PA-C [address] [place] [address] Nurse Valeriy Healthy Beginnings Return Martha [address] [facility] [place] [address] Health Maintenance Due Date Last Done Comments [...] and were consensually agreed upon. Care Teams Addressing Machine Operator Relationship Specialty Start Date End Date Ivory Sykes MD [address] [facility] [place] [address] PCP - General Family Medicine 11/14/17 documented as of this encounter
--- OUTSIDE RECORDS SUMMARY | 2025-02-17 04:15 | External Medical Summary | Summary of Care ---
Author Name Unknown Organization [facility] Address [address] [facility] [place] [address] Phone [phone] Care Team Providers Care Senior Java Web Application Developer Name Role Phone Ivory Sykes MD Primary Care Provider Reason for Visit * Reason Onset Date Comments Other 12/18/2024 InFed Encounter Details Date Type Department Care Team (Late st Contact Info) Description 12/18/2024 Telephone Hematology/Oncology Treatment, [place] [address] [place] [address] Ana Allen MD [address] [place] [...] planned Will give pump later in 11/13/2024 Cosnuelo Bell RN 11/13/2024 Problem Action Taken Date [...] 05/25/2022 Overview (11/01/2020): Scheduled for delivery at [place] after 39 weeks Assessment & Plan (08/25/2020 [...] have money to get more. Patient declined [place] Depression Scale Answer Date Recorded [place] Depression Scale Total 2 07/20/2024 The thought [...] encounter Miscellaneous Notes * Telephone Encounter - Daniella Wilkins OSA - 12/22/2024 9:28 AM EST Left message for pt. * Telephone Encounter - Sherry Conner RN - 12/21/2024 3:55 PM EST [place] is signed. Scheduling: please call patient to schedule 3 hour appt "infed" (Dr Ana Allen). Thanks! * Telephone Encounter - Tierra Stewart LPN - 12/18/2024 10:17 AM EST Order received for InFed [place] p [id number] No prior authorization required Awaiting provider signature before scheduling patient. documented in this encounter Plan of Treatment Upcoming Encounters Date Type Department Care Team (Late st Contact Info) Description 12/23/2024 10:00 AM EST Pharmacy Pharmacy, [place] [address] [place] [address] Clinic, [place] [address] [place] [address] 12/24/2024 8:00 AM EST Imaging Maternal Medicine Imaging, Martha Crooks [address] [place] [phone] 01/04/2025 7:30 AM EDT Office Visit Gynecology/Obstetrics Elisa Crooks [address] [place] [address] Mirna Stewart PA-C [address] [place] [address] Nurse Valeriy Healthy Beginnings Return Martha [address] [place] [address] Health Maintenance Due Date Last Done Comments [...] and were consensually agreed upon. Care Teams Senior Java Web Application Developer Relationship Specialty Start Date End Date Ivory Sykes MD [address] [facility] [place] [address] PCP - General Family Medicine 11/14/17 documented as of this encounter
--- OUTSIDE RECORDS SUMMARY | 2025-02-17 04:15 | External Medical Summary | Summary of Care ---
Author Name Unknown Organization [facility] Address [address] [facility] [place] [address] Phone [phone] Care Team Providers Care Wedding Florist Name Role Phone Ivory Sykes MD Primary Care Provider Reason for Visit * Reason Onset Date Comments Other 12/18/2024 InFed Encounter Details Date Type Department Care Team (Late st Contact Info) Description 12/18/2024 Telephone Hematology/Oncology Treatment, [place] [address] [place] [address] Ana Allen MD [address] [place] [address] Other (InFed) Allergies No known active allergiesdocumented as of this encounter (statuses as of 12/18/2024) Medications 27-0.8 MG TABS Take 1 Tablet by mouth in the morning. Active Iron (Ferrous Sulfate) 325 (65 Fe) MG Oral Tablet Take 1 Tablet by mouth in the morning. 90 Tablet 1 12/17/2024 Active documented as of this encounter (statuses as of 12/18/2024) Active Problems Problem Noted Date Diagnosed Date Iron deficiency anemia 12/16/2024 Antepartum anemia complicating 025 Overview (12/02/2024): Third tri labs Hgb 10.2. IV iron recommended Health counseling 11/13/2024 Overview (11/30/2024): Problem Action Taken Date entered Entered by Date resolved nutrition [facility] Consuelo Bell RN 11/13/2024 Dental visits [...] as of this encounter (statuses as of 12/18/2024) Resolved Problems Problem Noted Date Diagnosed Date [...] 05/25/2022 Overview (11/01/2020): Scheduled for delivery at [place] after 39 weeks Assessment & Plan (08/25/2020 [...] as of this encounter (statuses as of 12/18/2024) Immunizations Name Administration Dates Next Due Seasonal [...] have money to get more. Patient declined [place] Depression Scale Answer Date Recorded [place] Depression Scale Total 2 07/20/2024 The thought [...] encounter Miscellaneous Notes * Telephone Encounter - Tierra Stewrat LPN - 12/18/2024 10:17 AM EST Order received for InFed [place] [id number] No prior authorization required Awaiting provider signature before scheduling patient. documented in this encounter Plan of Treatment Upcoming Encounters Date Type Department Care Team (Late st Contact Info) Description 12/23/2024 10:00 AM EST Pharmacy Pharmacy, [address] [address] [place] [address] [place] [address] 12/24/2024 8:00 AM EST Imaging Maternal Medicine Imaging, Martha Crooks [address] [place] [phone] 01/04/2025 7:30 AM EDT Office Visit Gynecology/Obstetrics Elisa Crooks [address] [place] [address] Mirna Stewart PA-C [address] [place] [address] Nurse Valeriy Healthy Beginnings Return Martha [address] [place] [address] Health Maintenance Due Date Last Done Comments [...] and were consensually agreed upon. Care Teams Wedding Florist Relationship Specialty Start Date End Date Ivory Sykes MD [address] [place] [address] PCP - General Family Medicine 11/14/17 documented as of this encounter
--- OUTSIDE RECORDS SUMMARY | 2025-02-17 04:15 | External Medical Summary | Summary of Care ---
Author Name Unknown Organization [facility] Address [address] [place] [address] Phone [phone] Care Team Providers Care Dry Cleaning Checker Name Role Phone Ivory Sykes MD Primary Care Provider Encounter Details Date Type Department Care Team (Late st Contact Info) Description 12/24/2024 8:00 AM EST Office Visit Hall Worker Obstetrics Maternal Medicine, [address] [place] [address] Esetr Woody, DO [address] [place], [place] [phone] renal anomaly, single gestation*; Ultrasound for screening [...] Date resolved nutrition [facility]/13/2024 Consuelo Bell RN 11/13/2024 Dental [...] 05/25/2022 Overview (11/01/2020): Scheduled for delivery at [place] after 39 weeks Assessment & Plan (08/25/2020 [...] have money to get more. Patient declined [place] Depression Scale Answer Date Recorded [place] Depression Scale Total 2 07/20/2024 The thought [...] 12:30 PM EST Hem/Onc Treatment Hematology/Oncology Treatment, [place] [address] [place], [place] [phone] Arabella, Chair 9 Hem Onc Scene [address] [place] [address] 01/04/2025 7:30 AM EDT Office Visit Gynecology/Obstetric s Elisa Crooks [address] [facility] [place] [address] Mirna Stewart PA-C [address] [place] [address] Nurse Valeriy Healthy Beginnings Return Martha [address] [facility] [place] [address] 01/04/2025 2:30 PM EDT Pharmacy Pharmacy, [place] [address] [place], [place] [id number] Clinic, An[place] [address] [place] [address] Health Maintenance Due Date Last Done Comments [...] and were consensually agreed upon. Care Teams Dry Cleaning Checker Relationship Specialty Start Date End Date Ivory Sykes MD [address] [email or web address] [address] PCP - General Family Medicine 11/14/17 documented as of this encounter
--- OUTSIDE RECORDS SUMMARY | 2025-02-17 04:15 | External Medical Summary | Summary of Care ---
Author Name Unknown Organization [facility] Address [address] [place] [address] Phone [phone] Care Team Providers Care Real Estate Associate Name Role Phone Ivory Sykes MD Primary Care Provider Reason for Visit * Reason Onset Date Comments Anemia Follow-Up 12/17/2024 Encounter Details Date Type Department Care Team (Late st Contact Info) Description 12/17/2024 8:30 AM [facility] Pharmacy Pharmacy, [place] [address] [place] [address] Clinic, [place] [address] [place] [address] Iron deficiency anemia, unspecified iron deficiency anemia [...] 05/25/2022 Overview (11/01/2020): Scheduled for delivery at [place] after 39 weeks Assessment & Plan (08/25/2020 [...] have money to get more. Patient declined [place] Depression Scale Answer Date Recorded [place] Depression Scale Total 2 07/20/2024 The thought [...] this encounter Progress Notes * Tre Mckinney, [facility] - 12/17/2024 12:28 PM EST Patient Phone [...] the care of thispatient. Tre Mckinney, PharmD, [facility] Clinical Pharmacist Anemia Clinic P: [phone] F: [phone] 12/17/2024 12:34 PM Lab Results Component Value [...] Description 12/23/2024 10:00 AM EST Pharmacy Pharmacy, [address] [address] Clinic, [place] [address] [place] [address] 12/24/2024 8:00 AM EST Imaging Maternal Medicine Imaging, Martha Crooks [address] [place] [phone] 01/04/2025 7:30 AM EDT Office Visit Gynecology/Obstetrics [place] Valeriy [address] [place] [address] Mirna Stewart PA-C [address] [place] [address] Nurse Valeriy Healthy Beginnings Return Martha [address] [place] [address] Health Maintenance Due Date Last Done Comments [...] and were consensually agreed upon. Care Teams Real Estate Associate Relationship Specialty Start Date End Date Ivory Sykes MD [address] [place] [place] [address] PCP - General Family Medicine 11/14/17 documented as of this encounter
--- OUTSIDE RECORDS SUMMARY | 2025-02-17 04:15 | External Medical Summary | Summary of Care ---
Author Name Unknown Organization [facility] Address [address] [place] [address] Phone [phone] Care Team Providers Care Pizza Cook Name Role Phone Ivory Sykes MD Primary Care Provider Encounter Details Date Type Department Care Team (Late st Contact Info) Description 12/21/2024 Orders Only Pharmacy, [place] [address] [place] [address] [facility] [address] [place], [place] [phone] Allergies No known active allergiesdocumented as of this encounter (statuses as of 12/21/2024) Medications 27-0.8 MG TABS Take 1 Tablet by mouth in the morning. Active Iron (Ferrous Sulfate) 325 (65 Fe) MG Oral Tablet Take 1 Tablet by mouth in the morning. 90 Tablet 1 12/17/2024 Active documented as of this encounter (statuses as of 12/21/2024) Active Problems Problem Noted Date Diagnosed Date Iron deficiency anemia 12/16/2024 Antepartum anemia complicating 025 Overview (12/02/2024): Third tri labs Hgb 10.2. IV iron recommended Health counseling 11/13/2024 Overview (11/30/2024): Problem Action Taken Date entered Entered by Date resolved nutrition [facility] Consuelo Bell RN 11/13/2024 [...] as of this encounter (statuses as of 12/21/2024) Resolved Problems Problem Noted Date Diagnosed Date [...] 05/25/2022 Overview (11/01/2020): Scheduled for delivery at [place] after 39 weeks Assessment & Plan (08/25/2020 [...] as of this encounter (statuses as of 12/21/2024) Immunizations Name Administration Dates Next Due Seasonal [...] have money to get more. Patient declined [place] Depression Scale Answer Date Recorded [place] Depression Scale Total 2 07/20/2024 The thought [...] Description 12/23/2024 10:00 AM EST Pharmacy Pharmacy, [place] [address] [facility] [place] [address] Clinic, [place] [address] [place] [address] 12/24/2024 8:00 AM EST Imaging Maternal Medicine Imaging, Martha Crooks [address] [place] [phone] 01/04/2025 7:30 AM EDT Office Visit Gynecology/Obstetrics Elisa Crooks [address] [place] [address] Mirna Stewart PA-C [address] [place] [address] Nurse Valeriy Healthy Beginnings Return Martha [address] [place] [address] Health Maintenance Due Date Last Done Comments [...] and were consensually agreed upon. Care Teams Pizza Cook Relationship Specialty Start Date End Date Ivory Sykes MD [address] [place] [address] PCP - General Family Medicine 11/14/17 documented as of this encounter
--- OUTSIDE RECORDS SUMMARY | 2025-02-17 04:15 | External Medical Summary | Summary of Care ---
Author Name Unknown Organization [facility] Address [address] [place] [address] Phone [phone] Care Team Providers Care Manager Council Name Role Phone Ivory Sykes MD Primary Care Provider Reason for Visit * Reason Onset Date Comments Test Results Lab 12/09/2024 Encounter Details Date Type Department Care Team (Late st Contact Info) Description 12/09/2024 Telephone Client Insights Consultant Obstetrics Maternal Medicine, [place] [address] [place], [place] [phone] Marlen Damian, MS [address] [place], [place] [phone] Test Results Lab Allergies No known active allergiesdocumented as of this encounter (statuses as of 12/09/2024) Medications 27-0.8 MG TABS Take 1 Tablet by mouth in the morning. Active documented as of this encounter (statuses as of 12/09/2024) Active Problems Problem Noted Date Diagnosed Date Antepartum anemia complicating 025 Overview (12/02/2024): Third tri labs Hgb 10.2. IV iron recommended Health counseling 11/13/2024 Overview (11/30/2024): Problem Action Taken Date entered Entered by Date resolved nutrition Due date letter given [facility] 11/13/2024 Consuelo Bell RN 11/13/2024 Dental [...] as of this encounter (statuses as of 12/09/2024) Resolved Problems Problem Noted Date Diagnosed Date [...] 05/25/2022 Overview (11/01/2020): Scheduled for delivery at [place] after 39 weeks Assessment & Plan (08/25/2020 [...] as of this encounter (statuses as of 12/09/2024) Immunizations Name Administration Dates Next Due Seasonal [...] have money to get more. Patient declined [place] Depression Scale Answer Date Recorded [place] Depression Scale Total 2 07/20/2024 The thought [...] Miscellaneous Notes * Telephone Encounter - Marlen Damian MS - 12/09/2024 10:55 AM EST LVM, re negative carrier results documented in this encounter Plan of Treatment Upcoming Encounters Date Type Department Care Team (Late st Contact Info) Description 12/16/2024 4:00 PM EST Pharmacy Pharmacy, [place] [address] [place] [address] Clinic, [facility] [address] [place] [address] 12/17/2024 9:00 AM EST Office Visit Gynecology/Obstetrics Elisa Crooks [address] [place] [address] Chrissie Gomez PA-C [address] [place] [address] Nurse Valeriy Healthy Beginnings Return Martha [address] [place] [address] 12/24/2024 8:00 AM EST Imaging Maternal Medicine Imaging, [facility] [address] [place] [address] Health Maintenance Due Date Last Done Comments [...] and were consensually agreed upon. Care Teams Manager Council Relationship Specialty Start Date End Date Ivory Sykes MD [address] [place], [place] [address] PCP - General Family Medicine 11/14/17 documented as of this encounter
--- OUTSIDE RECORDS SUMMARY | 2025-02-17 04:16 | External Medical Summary ---
Author Name Unknown Address Unknown Organization [facility] [address] [place] [address] Laboratory Report Ordering Provider Test Date Status PEEWEE VANEGAS 11/30/2024 09:35:53 Final Observation Date Value Abnormality Reference (Units ) Status SYNC LEUKOCYTES IN BLOOD BY AUTOMATED COUNT 11/30/2024 09:35:53 6.32 4.00-10.80 (K/uL) Final Segs 11/30/2024 09:35:53 69.7 40.0-75.0 (%) Final Lymphs % 11/30/2024 09:35:53 21.8 18.0-42.0 (%) Final Monos 11/30/2024 09:35:53 7.1 1.0-11.0 (%) Final Eosinophils 11/30/2024 09:35:53 1.1 0.0-6.0 (%) Final Basos 11/30/2024 09:35:53 0.3 0.0-2.0 (%) Final Absolute Segs 11/30/2024 09:35:53 4.40 1.80-7.70 (K/uL) Final Lymphs, absolute 11/30/2024 09:35:53 1.38 1.00-4.80 (K/ul) Final Monos, Abs 11/30/2024 09:35:53 0.45 0.00-1.10 (K/uL) Final Eos, Abs 11/30/2024 09:35:53 0.07 0.00-0.70 (K/uL) Final Basos, Abs 11/30/2024 09:35:53 0.02 0.00-0.20 (K/uL) Final Performing Location [facility] [place] [address]
--- OUTSIDE RECORDS SUMMARY | 2025-02-17 04:16 | External Medical Summary | Summary of Care ---
Author Name Unknown Organization [facility] Address [address] [facility] [place] [address] Phone [phone] Care Team Providers Care Utility Person Name Role Phone Ivory Sykes MD Primary Care Provider Reason for Visit * Reason Comments Return Visit Encounter Details Date Type Department Care Team (Late st Contact Info) Description 11/13/2024 9:15 AM EST Office Visit Gynecology/Obstetric s Elisa Crooks [address] [place] [address] Mirna Stewart PA-C [address] [place] [address] High-risk in second trimester*; Family history of defect; renal anomaly, single gestation Allergies No known active allergiesdocumented as of this encounter (statuses as of 11/16/2024) Medications 27-0.8 MG TABS Take 1 Tablet by mouth in the morning. Active Promethazine HCl 25 MG Oral Tablet (Phenergan)Indicat ions:Early stage of Take 1 Tablet by mouth every 6 hours as needed for Nausea. 30 Tablet 1 4 025 Discontin ued(Medic ation List Clean Up) Ondansetron 4 MG Oral Tablet Disintegrating (Zofran)Indication s:Vomiting or nausea of Place 1 Tablet on tongue every 8 hours as needed for Nausea. dissolve on tongue. 30 Tablet 3 4 025 Discontin ued(Medic ation List Clean Up) documented as of this encounter (statuses as of 11/16/2024) Active Problems Problem Noted Date Diagnosed Date Health counseling 11/13/2024 Overview (11/13/2024): Problem Action Taken Date entered Entered by Date resolved nutrition Due date letter given forWIC 11/13/2024 Consuelo Bell RN 11/13/2024 Dental visits Encouraged 11/13/2024 Consuelo Bell RN 11/13/2024 planned Will give pump later in 11/13/2024 Consuelo Bell RN 11/13/2024 renal anomaly, single gestation 11/03/2024 Overview (11/03/2024): [...] as of this encounter (statuses as of 11/16/2024) Resolved Problems Problem Noted Date Diagnosed Date [...] 05/25/2022 Overview (11/01/2020): Scheduled for delivery at [place] after 39 weeks Assessment & Plan (08/25/2020 [...] as of this encounter (statuses as of 11/16/2024) Immunizations Name Administration Dates Next Due Seasonal [...] have money to get more. Patient declined [place] Depression Scale Answer Date Recorded [place] Depression Scale Total 2 07/20/2024 The thought [...] ages 0-17 years) Not on file 10/15/2024 Estimated Date of Delivery Comme nts [...] Sign Reading Time Taken Comments Blood Pressure 112/62 11/13/2024 9:20 AM EST Pulse - - Temperature - - Respiratory Rate - - Oxygen Saturation - - Inhaled Oxygen Concentration - - Weight 84.8 kg (187 lb) 11/13/2024 9:20 AM EST Height - - Body Mass Index 32.1 07/20/2024 9:15 AM EDT documented in this encounter Progress Notes * Mirna Stewart PA-C - 11/13/2024 9:32 AM EST 26w4d Doing well, follows with MFM. Plans genetic testing. Reviewed third tri labs and glucola. Can complete anytime between now and next appointment. Reviewed recommendation for Tdap with next appointment RTC in 2 weeks Mirna Stewart PA-C * Susana Orourke LPN - 11/13/2024 9:21 AM EST 26w4d Denies vaginal bleeding/rom + movement No new concerns documented in this encounter Nursing Notes * Consuelo Bell RN - 11/13/2024 11:04 AM EST have you cut down with your smoking n/a have you quit n/a have you seen a piano tuner no have you seen a geriatric social worker no have you received dental care during your no are you enrolled in [facility] no- due date letter given do you receive food stamps or guzman assistance no are you having problems with depression, receiving counseling or taking prescribed medications denies have you had little interest in doing things, or have you been bothered by feeling down, depressed,or hopeless denies documented in this encounter Plan of Treatment Upcoming Encounters Date Type Department Care Team (Late st Contact Info) Description 11/30/2024 8:40 AM EST Laboratory Laboratory, [facility] [address] [phone] [facility] [address] [place] [address] 11/30/2024 8:45 AM EST Office Visit Gynecology/Obstetrics [facility] [address] [address] Will Srinivasan MD [address] [place] [address] 12/24/2024 8:00 AM EST Imaging Maternal Medicine Imaging, [facility] [address] [place] [phone] Scheduled Orders Name Type Priority Associated Diagnoses Orde r Schedule 50-G GESTATIONAL GLUCOSE, 1 HOUR Lab Routine High-risk in second trimester Expected: 11/27/2024 (Approximate), Expires: 11/13/2025 CBC WITH WBC DIFFERENTIAL AND ANEMIA REFLEX WORKUP Lab Routine High-risk in second trimester Expected: 11/27/2024 (Approximate), Expires: 11/13/2025 SYPHILIS ANTIBODY SCREEN WITH REFLEX TO RPR Lab Routine High-risk in second trimester Expected: 11/27/2024 (Approximate), Expires: 11/13/2025 Health Maintenance Due Date Last Done Comments [...] survey 25 weeks gestation of state, incidental High-risk in second trimester- Primary Family history of defect Family history of congenital anomalies renal anomaly, single gestation documented in this encounter Additional Health Concerns Active Problems Noted Date Diagnosed Date OB Reminders 08/24/2024 documented as of this encounter Advance Directives * Full Code (Latest Code Status on File) Date Activated Date Inactivated Comments 11/30/2020 9:24 PM 12/03/2020 6:16 PM This order ref lects the patients wishes and were consensually agreed upon. Care Teams Utility Person Relationship Specialty Start Date End Date Ivory Sykes MD [address] [place] [address] PCP - General Family Medicine 11/14/17 documented as of this encounter
--- OUTSIDE RECORDS SUMMARY | 2025-02-17 04:16 | External Medical Summary | Summary of Care ---
Author Name Unknown Organization [facility] Address [address] [facility] [place] [address] Phone [phone] Care Team Providers Care Mechanics Supervisor Name Role Phone Ivory Sykes MD Primary Care Provider Reason for Visit * Reason Comments Healthy Beginnings Return Encounter Details Date Type Department Care Team (Late st Contact Info) Description 11/30/2024 8:30 AM EST Office Visit Gynecology/Obstetri malini Crooks [address] [place] [address] Will Srinivasan MD [address] [facility] [place] [address] Nurse Valeriy Healthy [facility]nings Return Martha [address] [facility] [place] [address] Family history of defect*; High-risk in third trimester; renal anomaly, single gestation; Health counseling Allergies No known active allergiesdocumented as of this encounter (statuses as of 12/01/2024) Medications 27-0.8 MG TABS Take 1 Tablet by mouth in the morning. Active documented as of this encounter (statuses as of 12/01/2024) Active Problems Problem Noted Date Diagnosed Date Health counseling 11/13/2024 Overview (11/30/2024): Problem Action Taken Date entered Entered by Date resolved nutrition [facility] 11/13/2024 Consuelo Bell RN 11/13/2024 [...] as of this encounter (statuses as of 12/01/2024) Resolved Problems Problem Noted Date Diagnosed Date [...] 05/25/2022 Overview (11/01/2020): Scheduled for delivery at [place] after 39 weeks Assessment & Plan (08/25/2020 [...] as of this encounter (statuses as of 12/01/2024) Immunizations Name Administration Dates Next Due Seasonal [...] have money to get more. Patient declined [place] Depression Scale Answer Date Recorded [place] Depression Scale Total 2 07/20/2024 The thought [...] Sign Reading Time Taken Comments Blood Pressure 108/58 11/30/2024 8:38 AM EST Pulse - - Temperature - - Respiratory Rate - - Oxygen Saturation - - Inhaled Oxygen Concentration - - Weight 87.5 kg (193 lb) 11/30/2024 8:38 AM EST Height 162.6 cm (5' 4") 11/30/2024 8:38 AM EST Body Mass Index 33.13 11/30/2024 8:38 AM EST documented in this encounter Progress Notes * Will Srinivasan MD - 11/30/2024 9:18 AM EST Pt doing well No complaints renal agenesis [facility] appt for growth RTC 2 weeks documented in this encounter Nursing Notes * Consuelo Bell RN - 11/30/2024 9:04 AM EST Patient seen by [facility] Motivational Speaker. have you cut down with your smoking n/a have you quit n/a have you seen a medical clerical assistant no have you seen a social worker clinical no have you received dental care during your no are you enrolled in [facility] no- due date letter given do you receive food stamps or guzman assistance no are you having problems with depression, receiving counseling or taking prescribed medications denies have you had little interest in doing things, or have you been bothered by feeling down, depressed,or hopeless denies * Yeni Boggs LPN - 11/30/2024 8:45 AM EST 29w0d Denies concerns Completing labs today Politely declines tdap documented in this encounter Plan of Treatment Upcoming Encounters Date Type Department Care Team (Late st Contact Info) Description 12/17/2024 9:00 AM EST Office Visit Gynecology/Obstetrics Elisa Crooks [address] [place] [address] Chrissie Gomez PA-C [address] [place] [address] Nurse Valeriy [facility] Return Martha [address] [place] [address] 12/24/2024 8:00 AM EST Imaging Maternal Medicine Imaging, Martha Crooks [address] [place] [phone] Health Maintenance Due Date Last Done Comments [...] single gestation Health counseling Other specified counseling documented in this encounter Additional Health Concerns Active Problems Noted Date Diagnosed Date OB Reminders 08/24/2024 documented as of this encounter Advance Directives * Full Code (Latest Code Status on File) Date Activated Date Inactivated Comments 11/30/2020 9:24 PM 12/03/2020 6:16 PM This order ref lects the patients wishes and were consensually agreed upon. Care Teams Mechanics Supervisor Relationship Specialty Start Date End Date Ivory Sykes MD [address] [place], [place] [address] PCP - General Family Medicine 11/14/17 documented as of this encounter
--- OUTSIDE RECORDS SUMMARY | 2025-02-17 04:16 | External Medical Summary ---
Author Name Unknown Address Unknown Organization : Laboratory Report Ordering Provider Test Date Status RONALD PAREKH 11/13/2024 09:56:48 Final Observation Date Value Abnormality Reference (Units ) Status NUMBER OF FETUSES? 11/13/2024 09:56:48 1 Final ADVANCED MATERNAL AGE? 11/13/2024 09:56:48 NO Final ABNORMAL ANGELIQUE? 11/13/2024 09:56:48 NO Final ABNORMAL US? 11/13/2024 09:56:48 SEE BELOW Final CURRENT WITH UNILA TE PERSONAL/FAM HISTORY? 11/13/2024 09:56:48 SEE BELOW Final SON WITH HISTORY WITH OMPHAL OC INTERPRETATION 11/13/2024 09:56:48 SEE BELOW Final This specimen showed an expe cted representation of
chromosome 21, 18, and 13 material. See
'Limitations' below. TRISOMY 21 (T21) 11/13/2024 09:56:48 Negative Final TRISOMY 18 (T18) 11/13/2024 09:56:48 Negative Final TRISOMY 13 (T13) 11/13/2024 09:56:48 Negative Final Y CHROMOSOME 11/13/2024 09:56:48 Detected Final Y CHR. INTERPRETATION 11/13/2024 09:56:48 SEE BELOW Final Consistent with a male fetus . SEX CHROMOSOME 11/13/2024 09:56:48 No aneuploidy Final SEX CHROMOSOME INTERP 11/13/2024 09:56:48 SEE BELOW Final No apparent abnormality was detected. See
'Limitations' below. MICRODELETION 11/13/2024 09:56:48 Not detected Final MICRODELETION INTERP 11/13/2024 09:56:48 SEE BELOW Final No apparent abnormality was detected. See
'Limitations' below. GESTATIONAL AGE (IN WEEKS) 11/13/2024 09:56:48 28 Final GESTATIONAL AGE (IN DAYS) 11/13/2024 09:56:48 4 Final FRACTION 11/13/2024 09:56:48 11.90% Final LABORATORY COMMENTS 11/13/2024 09:56:48 SEE BELOW Final Laboratory testing supervise d and results
monitored by Dougie Koenig, Ph.D., FAC, [facility],
[facility]. LIMITATIONS 11/13/2024 09:56:48 SEE BELOW Final QNatal(R) Advanced is a cell -free DNA screening
test that screens for increased risk of certain
chromosomal abnormalities that may cause
defects, including Trisomy 21 (Down
syndrome), Trisomy 18, Trisomy 13, and certain sex
chromosome abnormalities (i.e., 45,X, 47,XXY,
47,XXX, and 47,XYY), as well as sex. In
addition, if selected as an option, QNatal(R)
Advanced can screen for certain microdeletions
(i.e., 22q, 5p, 1p36, 15q, 11q, 8q, and 4p) that
may cause defects. This test does not assess
the risk of abnormalities such as neural
tube defects or ventral wall defects and should
not be considered in isolation from other clinical
findings and laboratory test results.
QNatal(R) Advanced has been validated in [place]
pregnancies for the trisomies and sex chromosome
abnormalities listed above, as well as for
microdeletions, and for the determination of
sex. Sex chromosome aneuploidy analysis is only
performed in [place] pregnancies. This screening
test has also been validated in twin pregnancies
for the trisomies listed above and for
microdeletions, but not for the sex chromosome
abnormalities due to limited data. This screening
test has not been validated in higher order
pregnancies (more than two) because limited data
is available. Sex chromosomal aneuploidy results
issued for pregnancies confirmed to be of multiple
gestations are not valid and should be
disregarded.
Microdeletion screening is limited to the
specified microdeletion regions (see
'Methodology'). The Y chromosome is analyzed for
the determination of sex. The sensitivity
and specificity of sex determination
analysis may be less than that of the Trisomy 21,
18, and 13 analysis and this determination can be
confounded by vanishing twin syndrome in
pregnancies that were originally multiple
gestation pregnancies. It should be noted that
QNatal(R) Advanced is a quantitative analysis of
maternal and placental cfDNA. As a result, the
accuracy of screening results may be affected by
the presence of chromosome abnormalities or
microdeletions that are maternal or confined
placental in origin. SPECIFICATIONS 11/13/2024 09:56:48 SEE BELOW Final Sensitivity Specificity<br/ >T21 >99.9% >99.9%
T18 >99.9% >99.9%
T13 >99.9% >99.9%
Accuracy
Y >99.9%
Performance of the QNatal Advanced
laboratory-developed test (LDT) has been
determined based on internal analytical
assessment. METHODOLOGY 11/13/2024 09:56:48 SEE BELOW Final Circulating cell-free (cf) D NA was isolated from
plasma followed by detection on a massively
parallel sequencing platform. Bioinformatic
analysis was performed to determine the
representation of chromosomes 21, 18, 13, X and Y
in circulating cell-free DNA. The representation
of sequences from the critical regions involved in
1p36 microdeletion syndrome (1p36),
Weir-Hirschhorn syndrome (4p), Cri-du-chat
syndrome (5p), Stefany-Giedion syndrome (8q),
Guillaume syndrome (11q), Prader Willi
syndrome/Angelman syndrome (15q), and DiGeorge
syndrome (22q) is evaluated for the detection of
microdeletions if requested. Performance
characteristics refer to the analytical
performance of this screening test. This screening
test is performed pursuant to a license agreement
with [facility].
QNatal Advanced is a laboratory developed test
that has been developed and validated, pursuant to
the Clinical Laboratory Improvements Amendments of
1988 (CLIA), and as such it has not been reviewed
by FDA.
Test performed by [facility]
[address],
[place] [address]

Admissions Manager Rn: Nighat Grace MD,PHD,EPIFANIO
Test Reported by [facility],
[facility] [place],
[address] [place], [place] M.D., Ph.D., Director of Laboratories
, CLIA [id number] Performing Location
--- OUTSIDE RECORDS SUMMARY | 2025-02-17 04:16 | External Medical Summary ---
Author Name Unknown Address Unknown Organization [id number]:[facility] [address] [place] [address] Laboratory Report Ordering Provider Test Date Status ROMINAPEEWEE 11/30/2024 09:35:53 Final Observation Date Value Abnormality Reference (Units ) Status Iron 11/30/2024 09:35:53 40 33-151 (ug/dL) Final Iron-binding capacity 11/30/2024 09:35:53 518 Above high normal 250-425 (ug/dL) Final Transferrin Sat % 11/30/2024 09:35:53 8 Below low normal 15-55 (%) Final Performing Location LABORATORY C - [address] [place] [address]
--- OUTSIDE RECORDS SUMMARY | 2025-02-17 04:16 | External Medical Summary | Summary of Care ---
Author Name Unknown Organization [facility] Address [address] [place] [address] Phone [phone] Care Team Providers Care Access Services Representative Name Role Phone Ivory Sykes MD Primary Care Provider Reason for Visit * Reason Comments Blood Management Program Encounter Details Date Type Department Care Team (Late st Contact Info) Description 12/02/2024 Documentation Patient Blood Management, [place] [address] [place] [address] Umair Mena RN Allergies No known active allergiesdocumented as of this encounter (statuses as of 12/03/2024) Medications 27-0.8 MG TABS Take 1 Tablet by mouth in the morning. Active documented as of this encounter (statuses as of 12/03/2024) Active Problems Problem Noted Date Diagnosed Date Antepartum anemia complicating 025 Overview (12/02/2024): Third tri labs Hgb 10.2. IV iron recommended Health counseling 11/13/2024 Overview (11/30/2024): Problem Action Taken Date entered Entered by Date resolved nutrition [facility]/13/[facility]24 Consuelo Bell RN 11/13/2024 Dental visits [...] as of this encounter (statuses as of 12/03/2024) Resolved Problems Problem Noted Date Diagnosed Date [...] 05/25/2022 Overview (11/01/2020): Scheduled for delivery at [place] after 39 weeks Assessment & Plan (08/25/2020 [...] as of this encounter (statuses as of 12/03/2024) Immunizations Name Administration Dates Next Due Seasonal [...] have money to get more. Patient declined [place] Depression Scale Answer Date Recorded [place] Depression Scale Total 2 07/20/2024 The thought [...] as of this encounter Progress Notes * Umair Mena RN - 12/02/2024 3:13 PM EST REFERRAL - Patient Blood Management Name: Ashley Maynard REQUESTING SERVICE: Martha Crooks REASON FOR REFERRAL: new evaluation outpatient, anemia in [place]: 02/15/25 Anemia Evaluation: Latest Reference Range & Units 11/30/24 09:35 HGB 12.0 - 15.3 g/dL 10.2 (L) HCT 36.0 - 45.2 % 32.3 (L) Iron 33 - 151 ug/dL 40 Iron Binding Capacity 250 - 425 ug/dL 518 (H) Transferrin Saturation Percent 15 - 55 % 8 (L) Ferritin 13 - 150 ng/mL 24 Immature Reticuloctye Fraction 2.5 - 20.6 % 30.8 (H) Reticulocyte Hemoglobin 29.7 - 37.4 pg 28.1 (L) (L): Data is abnormally low (H): Data is abnormally high Current Patient Medications: Medications that may impair hemostasis: none Medications that may impair iron absorption: none Patient Refused Blood Transfusion? (e.g. Faith): no Possible Contributing Factors: iron deficiency Treatment Recommendations: IV iron per OB MTM guidelines. 2/5 - Called patient to discuss recommendations. No answer, left voicemail for return call. MyG sent. 2/5 - Spoke with Ashley, agreeable to K[facility] at [facility]. Risks and benefits of IV iron, including risk of adverse drug reaction discussed with patient. Patient voiced understanding. Thank you for allowing Blood Management to participate in the care of this patient. documented in this encounter Plan of Treatment Upcoming Encounters Date Type Department Care Team (Late st Contact Info) Description 12/17/2024 9:00 AM EST Office Visit Gynecology/Obstetrics Eilsa Crooks [address] [place] [address] Chrissie Gomez PA-C [address] [place] [address] Nurse Valeriy [facility] Return Martha [address] [place] [address] 12/24/2024 8:00 AM EST Imaging Maternal Medicine Imaging, Martha Crooks [address] [place] [phone] Health Maintenance Due Date Last Done Comments [...] and were consensually agreed upon. Care Teams Access Services Representative Relationship Specialty Start Date End Date Ivory Sykes MD [address] [facility] [place] [address] PCP - General Family Medicine 11/14/17 documented as of this encounter
--- OUTSIDE RECORDS SUMMARY | 2025-02-17 04:16 | External Medical Summary ---
Author Name Unknown Address Unknown Organization K0G:[facility]AT[facility] [place] [address] - [address] [place] [address] Laboratory Report Ordering Provider Test Date Status PEEWEE VANEGAS 11/30/2024 09:35:53 Final Observation Date Value Abnormality Reference (Units ) Status Glucose [Moles/volume] in Serum or Plasma --1 hour post 50 g glucose PO 11/30/2024 09:35:53 121 70-129 (mg/dL) Final Performing Location LAB[facility]ATORY [place] [facility] [address] - [address] [place] [address]
--- OUTSIDE RECORDS SUMMARY | 2025-02-17 04:16 | External Medical Summary | Summary of Care ---
Author Name Unknown Organization [facility] Address [address] [facility] [place] [address] Phone [phone] Care Team Providers Care Gas Derrick Operator Name Role Phone Ivory Sykes MD Primary Care Provider Reason for Visit * Reason Comments Return Visit Encounter Details Date Type Department Care Team (Late st Contact Info) Description 11/13/2024 9:15 AM EST Office Visit Gynecology/Obstetric s Elisa Crooks [address] [place] [address] Mirna Stewart PA-C [address] [place] [address] High-risk in second trimester*; Family history of defect; renal anomaly, single gestation Allergies No known active allergiesdocumented as of this encounter (statuses as of 11/13/2024) Medications 27-0.8 MG TABS Take 1 Tablet [...] as of this encounter (statuses as of 11/13/2024) Active Problems Problem Noted Date Diagnosed Date [...] as of this encounter (statuses as of 11/13/2024) Resolved Problems Problem Noted Date Diagnosed Date [...] 05/25/2022 Overview (11/01/2020): Scheduled for delivery at [place] after 39 weeks Assessment & Plan (08/25/2020 [...] as of this encounter (statuses as of 11/13/2024) Immunizations Name Administration Dates Next Due Seasonal [...] have money to get more. Patient declined [place] Depression Scale Answer Date Recorded [place] Depression Scale Total 2 07/20/2024 The thought [...] you quit n/a have you seen a grain miller helper no have you seen a social media intern no have you received dental care during your no are you enrolled in [facility] no- due date letter given do [...] Description 11/30/2024 8:40 AM EST Laboratory Laboratory, [facility] [address] [phone] [facility] [address] [place] [address] 11/30/2024 8:45 AM EST Office Visit Gynecology/Obstetrics [facility] [address] [address] Will Srinivasan MD [address] [place] [address] 12/24/2024 8:00 AM EST Imaging Maternal Medicine Imaging, [facility] [address] [place] [phone] Scheduled Orders Name Type Priority Associated Diagnoses [...] and were consensually agreed upon. Care Teams Gas Derrick Operator Relationship Specialty Start Date End Date Ivory Sykes MD [address] [place] [address] PCP - General Family Medicine 11/14/17 documented as of this encounter
--- OUTSIDE RECORDS SUMMARY | 2025-02-17 04:16 | External Medical Summary | Summary of Care ---
Author Name Unknown Organization [facility] Address [address] [facility] [place] [address] Phone [phone] Care Team Providers Care Epic Radiant Analyst Name Role Phone Ivory Sykes MD Primary Care Provider Encounter Details Date Type Department Care Team (Late st Contact Info) Description 11/16/2024 Population Health External Data Unspecified Department Allergies No known active allergiesdocumented as of this encounter (statuses as of 11/16/2024) Medications 27-0.8 MG TABS Take 1 Tablet by mouth in the morning. Active documented as of this encounter (statuses as of 11/16/2024) Active Problems Problem Noted Date Diagnosed Date Health counseling 11/13/2024 Overview (11/13/2024): Problem Action Taken Date entered Entered by Date resolved nutrition [facility]/13/2024 Consuelo Bell RN 11/13/2024 [...] 05/25/2022 Overview (11/01/2020): Scheduled for delivery at [place] after 39 weeks Assessment & Plan [...] have money to get more. Patient declined [place] Depression Scale Answer Date Recorded [place] Depression Scale Total 2 07/20/2024 The thought [...] Description 11/30/2024 8:40 AM EST [facility] [address] [place] [phone] Kiersten Crooks [facility] [address] [place] [address] 11/30/2024 8:45 AM EST Office Visit [facility] [address] [place] [address] Will Srinivasan MD [address] [place] [address] 12/24/2024 8:00 AM EST Imaging Maternal Medicine Imaging, [facility] [address] [place] [phone] Health Maintenance Due Date Last Done Comments [...] and were consensually agreed upon. Care Teams Epic Radiant Analyst Relationship Specialty Start Date End Date Ivory Sykes MD [address] [address] PCP - General Family Medicine 11/14/17 documented as of this encounter
--- OUTSIDE RECORDS SUMMARY | 2025-02-17 04:16 | External Medical Summary | Summary of Care ---
Author Name Unknown Organization [facility] Address [address] [place] [address] Phone [phone] Care Team Providers Care Foreign Student Adviser Name Role Phone Ivory Sykes MD Primary Care Provider Reason for Visit * Reason Comments Genetic Counseling * Evaluate & Treat - Unlimited Visits (Within 10 days (routine)) - Pending Review Specialty Diagnoses / Procedures Referred By Larry gregorio Referred To Contact Medical Genetics / Hematology Oncology Diagnoses renal anomaly, single gestation Encounter for anatomic survey 25 weeks gestation of AnnaliseEster, DO [address] [place] [address] Phone: tel: fax: Referral ID Status Reason Start Date Expiration Date Visits Requested Visits Authorized [id number] Pending Review Specialty Services Required 11/03/[phone] Encounter Details Date Type Department Care Team (Late st Contact Info) Description 11/04/2024 2:00 PM EST Telemedicine Delinquent Account Clerk Obstetrics Maternal Medicine, [place] [address] [place] [address] Marlen Damian, MS [address] [place] [address] renal anomaly, single gestation*; Family history of defect; Encounter for procreative genetic counseling; Screening for genetic disease carrier status Allergies No known active allergiesdocumented as of this encounter (statuses as of 11/04/2024) Medications 27-0.8 MG TABS Take 1 Tablet by mouth in the morning. Active Promethazine HCl 25 MG Oral Tablet (Phenergan)Indicat ions:Early stage of Take 1 Tablet by mouth every 6 hours as needed for Nausea. 30 Tablet 1 07/06/20 24 Active Additional Information Patient not taking.Reported on 10/15/2024 Ondansetron 4 MG Oral Tablet Disintegrating (Zofran)Indication s:Vomiting or nausea of Place 1 Tablet on tongue every 8 hours as needed for Nausea. dissolve on tongue. 30 Tablet 3 09/07/20 24 Active Additional Information Patient not taking.Reported on 10/15/2024 documented as of this encounter (statuses as of 11/04/2024) Active Problems Problem Noted Date Diagnosed Date renal anomaly, single gestation 11/03/2024 Overview (11/03/2024): [...] as of this encounter (statuses as of 11/04/2024) Resolved Problems Problem Noted Date Diagnosed Date [...] 05/25/2022 Overview (11/01/2020): Scheduled for delivery at [place] after 39 weeks Assessment & Plan (08/25/2020 [...] as of this encounter (statuses as of 11/04/2024) Immunizations Name Administration Dates Next Due Seasonal [...] have money to get more. Patient declined [place] Depression Scale Answer Date Recorded [place] Depression Scale Total 2 07/20/2024 The thought [...] as of this encounter Progress Notes * Marlen Damian, MS - 11/04/2024 2:00 PM EST GENETIC COUNSELING FOR MATERNAL MEDICINE at [facility] | | Email: [email or web address] Name: Ashley Maynard Date: 11/04/2024 - 2:00 PM EST Providers Present: Marlen Damian, MS, Dr. Nat Rich, GC Pile Trimmer Shyanne Lugo REASON FOR VISIT: Genetic Counseling for unilateral renal agenesis. HPI: Ashley Maynard is a 29 year old with an EUGENIO of 02/15/2025, by Last Menstrual Period, placing the patient at approximately 25w2d gestation at the time of our consultation. Ashley was referred by Ester Woody DO. The patient presented to care with spouse. 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 - 9% recurrence risk in subsequent pregnancies. PLAN: - Invasive testing (amnio) offered and declined today. - Agrees to cfDNA with microdeletions and sex chr. - Agrees to comprehensive carrier screening in [facility], will consider in partner if significant to URA dx. PERSONAL MEDICAL HISTORY: - Ashley reports a history of no significant concerns. Labs: Carrier Testing: ordered today. NIPT: ordered today Other Genetic Results: none OB History Para Term AB Living 4 2 2 1 2 SAB IAB Ectopic Multiple Live Births 1 0 2 # Outcome Date GA Lbr Yash/2nd Weight Sex Type Anes PTL Lv 4 Current 3 Term 12/14/22 40w1d 3.432 kg (7 lb 9.1 oz) M Vag-Spont EPI N LEIGH ANN 2 Term 12/01/20 39w2d / 00:29 M Vag-Spont EPI N LEIGH ANN Comments: Omphalecele with sac intact 1 SAB 09/2019 6w0d Comments: no D+C; SAB at 8w SOCIAL HISTORY, PSYCHOSOCIAL ASSESSMENT: Partner's name is Guilherme Maynard (: 97; FOB#1). Social hx - involved and patient's spouse Support - reports support from family FAMILY HISTORY: A review of the genetic family history for this patient and her partner was performed, no medical records confirming this information were available at the time of consultation. A full pedigree was obtained and linked below labeled as "Progress Notes" under "Other Notes" in this encounter. - High risk ancestry: denies (eg: ashkenazi yazdanism, russian-luxembourger). - Consanguinity: denies. Pertinent positives: The patient's FHx is unremarkable. The patient's reproductive partner's FHx is remarkable for FOB's mother with early onset breast cancer with mets and 3x recurrence . COUNSELING TOPICS & CONSULT SUMMARY: (1) Unilateral Renal Agenesis - Unilateral renal agenesis has an incidence of about 1 in 1,300. It is associated with and increased risk of abnormalities in the contralateral kidney, such as vesicoureteral reflux, or ureteropelvic junction obstruction. I described the natural history of isolated renal agenesis. - Renal agenesis can be isolated, associated with anomalies or syndromic/chromosomal. Associated findings include anomlies of the following systems: genital, cardiovascular, skeletal and central nervous system. - URA has been associated with VACTERL, which has a mixed genetic and environmental etiology. - chromosomal aneuploidies like T21, T18, T13, monosomy X. Some microdeletion or microduplication syndromes such as 22q11.2 deletion or cat-eye syndrome involving 22pter-22q11, have been It has also been observed in rare genetic syndromes such as Pena syndrome recessive; GRIP1, FRAS1, and FREM2, all on the carrier screening panel ordered today), and rare dominant conditions such as Michaela-Pena syndrome and Sasha-Brocks syndrome. I did not recommend testing for these two sporadic, dominantsyndromes as there are no non-invasive options for evaluation during . - Additional, non-genetic causes include pre-existing maternal diabetes, high BMI, cigarette and alcohol use. - Reviewed genetic testing options, including risks, benefits and limitations of cell free DNA and amniocentesis as well as genetics evaluation should any findings be suggestive of a syndromic etiology, upon examination. - ultrasound follow up to assess contralateral kidney as well as amniotic fluid volume is recommended. follow up with nephrology/urology as risk for VUR can be as high as 30%. - Noted that with one affected child, recurrence risk in subsequent pregnancies is 9% if no other genetic information is identified. (2) Chromosome Disorder Risks: - Discussed maternal age-related risk for chromosome abnormalities and rationale for universal screening during . At Maternal Age at EDC: 25-29y, risk for any aneuploidy: <1%. (3) Carrier Screening Options Discussed: - I described the concept of carrier screening, including benefits, risks, and limitations of genetic screening for carrier status. I emphasized that a negative carrier screening result would significantly reduce the risk of being a carrier for the disorders tested, but does not eliminate the risk entirely. - We reviewed options for limited and expansive testing. ACOG-recommendeds perkins- ethnic carrier screening for cystic fibrosis, spinal muscular atrophy, and hemoglobinopathies. There are a variety of options for expanded testing that include panels of genes covering over 500 disorders (eg: blindness, deafness, metabolic syndromes, etc). - I provided education about different modes of inheritance including autosomal recessive and X-linked dominant and X-linked recessive. Patient is aware that both patient and partner need to be carriers of a recessive condition to have a child that is affected, the risk of an affected child would be 25%. For X-linked conditions, the patient is aware that if they are a carrier, there is a 50% chance male children would be affected. - Ashley elects to proceed with comprehensive carrier screening, testing for 600 disorders through [facility]. Partner will consider after. (4) Follow Up: No other specific studies recommended at this time. I spent a total of 20-29 minutes (exact time 29 mins) on the date of service in preparation, delivery, and documentation of the care provided to Ashley Maynard excluding any time spent in the performance of separately billed services or time spent by another provider/QHP. Ester De La Vega, , thank you for your referral. Please feel free to call with any questions regarding this report. Marlen Damian, MS Licensed, Certified Genetic Counselor Visit Type: Video. Patient location: HOME. I was in a hospital or clinic location. After connecting through televideo,patient was verified with two unique identifiers. Patient (or authorized legal in store marketing representative) was then informed that this was a Telemedicine visit and being conducted confidentially over secure lines. Methods to assure confidentiality were taken. Patient acknowledged consent and understanding of pr ivacy and security of the Telemedicine visit. The patient agreed to participate. ICD-10-CM 1. renal anomaly, single gestation O35.EXX0 2. Family history of defect Z82.79 3. Encounter for procreative genetic counseling Z31.5 4. Screening for genetic disease carrier status Z13.71 documented in this encounter Plan of Treatment Upcoming Encounters Date Type Department Care Team (Late st Contact Info) Description 11/13/2024 9:15 AM EST Office [facility] [address] [place] [address] Mirna Stewart PA-C [address] [place] [address] 12/24/2024 8:00 AM EST Imaging Maternal Medicine Imaging, [facility] [address] [place] [phone] Scheduled Orders Name Type Priority Associated Diagnoses Orde r Schedule QNATAL ADVANCED (QUEST) Lab Routine renal anomaly, single gestation Family history of defect Encounter for procreative genetic counseling Expected: 11/05/2024 (Approximate), Expires: 11/04/2025 COMPREHENSIVE CARRIER SCREEN Lab Routine Screening for genetic disease carrier status Expected: 11/11/2024, Expires: 11/04/2025 Health Maintenance Due Date Last Done Comments [...] survey 25 weeks gestation of state, incidental renal anomaly, single gestation- Primary Family history of defect Family history of congenital anomalies Encounter for procreative genetic counseling Screening for genetic disease carrier status documented in this encounter Additional Health Concerns Active Problems Noted Date Diagnosed Date OB Reminders 08/24/2024 documented as of this encounter Advance Directives * Full Code (Latest Code Status on File) Date Activated Date Inactivated Comments 11/30/2020 9:24 PM 12/03/2020 6:16 PM This order ref lects the patients wishes and were consensually agreed upon. Care Teams Foreign Student Adviser Relationship Specialty Start Date End Date Ivory Sykes MD [address] [place] [address] PCP - General Family Medicine 11/14/17 documented as of this encounter
--- OUTSIDE RECORDS SUMMARY | 2025-02-17 04:16 | External Medical Summary ---
Author Name Unknown Address Unknown Organization [id number] [address] [place] [address] Laboratory Report Ordering Provider Test Date Status PEEWEE VANEGAS 11/30/2024 09:35:53 Final Observation Date Value Abnormality Reference (Units ) Status WBC, Total 11/30/2024 09:35:53 6.32 4.00-10.8 0 (K/uL) Final RBC 11/30/2024 09:35:53 3.70 3.85-5.15 (M/uL) Final Hemoglobin 11/30/2024 09:35:53 10.2 Below low normal 12 .0-15.3 (g/dL) Final Anemia reflex testing trigge rs on a HGB < 12.0 for Females and HGB < 13.0 for Males in accordance with the WHO Anemia Guidelines
Anemia reflex testing triggers on a HGB < 12.0 for Females and HGB < 13.0 for Males in accordance with the WHO Anemia Guidelines HCT 11/30/2024 09:35:53 32.3 Below low normal 36. 0-45.2 (%) Final MCV 11/30/2024 09:35:53 87.3 81.5-97.5 (fL) Final MCH 11/30/2024 09:35:53 27.6 27.0-34.0 (pg) Final MCHC 11/30/2024 09:35:53 31.6 32.0-36.0 (g/dL) Final RDW 11/30/2024 09:35:53 13.2 11.5-15.5 (%) Final Platelets 11/30/2024 09:35:53 203 140-400 (K /uL) Final MPV 11/30/2024 09:35:53 9.8 6.6-11.1 ( fL) Final Performing Location LABORATORY [place] [address] [place] [address]
--- OUTSIDE RECORDS SUMMARY | 2025-02-17 04:16 | External Medical Summary | Summary of Care ---
Author Name Unknown Organization [facility] Address [address] [facility] [place] [address] Phone [phone] Care Team Providers Care Process Equipment Operator Name Role Phone Ivory Sykes MD Primary Care Provider Encounter Details Date Type Department Care Team (Late st Contact Info) Description 12/02/2024 Population Health External Data Unspecified Department Allergies No known active allergiesdocumented as of this encounter (statuses as of 12/02/2024) Medications 27-0.8 MG TABS Take 1 Tablet by mouth in the morning. Active documented as of this encounter (statuses as of 12/02/2024) Active Problems Problem Noted Date Diagnosed Date Health counseling 11/13/2024 Overview (11/30/2024): Problem Action Taken Date entered Entered by Date resolved nutrition [facility] Consuelo Bell RN 11/13/2024 Dental visits [...] as of this encounter (statuses as of 12/02/2024) Resolved Problems Problem Noted Date Diagnosed Date [...] 05/25/2022 Overview (11/01/2020): Scheduled for delivery at [place] after 39 weeks Assessment & Plan (08/25/2020 [...] as of this encounter (statuses as of 12/02/2024) Immunizations Name Administration Dates Next Due Seasonal [...] have money to get more. Patient declined [place] Depression Scale Answer Date Recorded [place] Depression Scale Total 2 07/20/2024 The thought [...] 9:00 AM EST Office Visit Gynecology/Obstetrics Elisa Mirandas [address] [place] [address] Chrissie Gomez PA-C [address] [place] [address] Nurse [facility] [address] [place] [address] 12/24/2024 8:00 AM EST Imaging Maternal Medicine Imaging, Martha Crooks [address] [place] [phone] Health Maintenance Due Date Last Done Comments [...] and were consensually agreed upon. Care Teams Process Equipment Operator Relationship Specialty Start Date End Date Ivory Sykes MD [address] [place] [address] PCP - General Family Medicine 11/14/17 documented as of this encounter
--- OUTSIDE RECORDS SUMMARY | 2025-02-17 04:16 | External Medical Summary | Summary of Care ---
Author Name Unknown Organization [facility] Address [address] [facility] [place] [address] Phone [phone] Care Team Providers Care Lockstitch Pocket Setter Name Role Phone Ivory Sykes MD Primary Care Provider Reason for Visit * Reason Comments Outpatient Testing Encounter Details Date Type Department Care Team (Late st Contact Info) Description 11/13/2024 10:10 AM EST Laboratory Laboratory, [facility] [address] [facility] [place] [phone] [facility] [address] [facility] [place] [address] [employer] Other*[id number]; renal anomaly, single gestation; Family history of defect; Encounter for procreative [...] 05/25/2022 Overview (11/01/2020): Scheduled for delivery at [place] after 39 weeks Assessment & Plan (08/25/2020 [...] have money to get more. Patient declined [place] Depression Scale Answer Date Recorded [place] Depression Scale Total 2 07/20/2024 The thought [...] Description 11/30/2024 8:40 AM EST Laboratory Laboratory, [facility] [address] [place] [phone] Kiersten Crooks [facility] [address] [place] [address] 11/30/2024 8:45 AM EST Office Visit Gynecology/Obstetrics [facility] [address] [place] [address] Will Srinivasan MD [address] [place] [address] 12/24/2024 8:00 AM EST Imaging Maternal Medicine Imaging, [facility] [address] [place] [phone] Pending Results Name Type Priority Associated Diagnoses Date /Time MYCODE SUBSEQUENT ADULT Lab Routine [employer] Other*[id number] 11/13/2024 9:56 AM EST QNATAL ADVANCED (QUEST) Lab Routine renal anomaly, single gestation Family history of defect Encounter for procreative genetic counseling 11/13/2024 9:56 AM EST COMPREHENSIVE CARRIER SCREEN Lab Routine Screening for genetic disease carrier status 11/13/2024 9:56 AM EST MYCODE SST1 Lab Routine [employer] Other*[id number] 11/13/2024 9:56 AM EST MYCODE SST2 Lab Routine [employer] Other*[id number] 11/13/2024 9:56 AM EST Health Maintenance Due Date Last Done Comments [...] survey 25 weeks gestation of state, incidental [employer] Other*[id number] renal anomaly, single gestation Family history of defect Family history of [...] and were consensually agreed upon. Care Teams Lockstitch Pocket Setter Relationship Specialty Start Date End Date Ivory Sykes MD [address] [place] [address] PCP - General Family Medicine 11/14/17 documented as of this encounter
--- OUTSIDE RECORDS SUMMARY | 2025-02-17 04:16 | External Medical Summary | Summary of Care ---
Author Name Unknown Organization [facility] Address [address] [facility] [place] [address] Phone [phone] Care Team Providers Care Addiction Treatment Counselor Name Role Phone Ivory Sykes MD Primary Care Provider Reason for Visit * Reason Comments Return Visit Encounter Details Date Type Department Care Team (Late st Contact Info) Description 11/13/2024 9:15 AM EST Office Visit Gynecology/Obstetric s Elisa Crooks [address] [place] [address] Mirna Stewart PA-C [address] [place] [address] High-risk in second trimester*; Family history of [...] 05/25/2022 Overview (11/01/2020): Scheduled for delivery at [place] after 39 weeks Assessment & Plan (08/25/2020 [...] have money to get more. Patient declined [place] Depression Scale Answer Date Recorded [place] Depression Scale Total 2 07/20/2024 The thought [...] No new concerns documented in this encounter Plan of Treatment Upcoming Encounters Date Type Department Care Team (Late st Contact Info) Description 11/30/2024 8:40 AM EST [facility] [address] [place] [phone] Kiersten Crooks [address] [place] [address] 11/30/2024 8:45 AM EST Office Visit Gynecology/Obstetrics [place] [address] Will Srinivasan MD [address] [place] [address] 12/24/2024 8:00 AM EST Imaging Maternal Medicine Imaging, [facility] [address] [place] [phone] Scheduled Orders Name Type Priority Associated Diagnoses [...] and were consensually agreed upon. Care Teams Addiction Treatment Counselor Relationship Specialty Start Date End Date Ivory Sykes MD [address] [place] [address] PCP - General Family Medicine 11/14/17 documented as of this encounter
--- OUTSIDE RECORDS SUMMARY | 2025-02-17 04:16 | External Medical Summary ---
Author Name Unknown Address Unknown Organization [id number]:[facility] [address] [place] [address] Laboratory Report Ordering Provider Test Date Status PEEWEE VANEGAS 11/30/2024 09:35:53 Final Observation Date Value Abnormality Reference (Units ) Status Creatinine 11/30/2024 09:35:53 0.5 0.5-1.0 (mg/dL) Final Glomerular filtration rate/1.73 sq M.predicted [Volume Rate/Area] in Serum, Plasma or Blood by Creatinine-based formula (CKD-EPI) 11/30/2024 09:35:53 >90 >=60 (mL/min) Final eGFR is calculated based on the CKD-EPI 2020 equation. Performing Location [facility] [place] [address] [place] [address]
--- OUTSIDE RECORDS SUMMARY | 2025-02-17 04:16 | External Medical Summary ---
Author Name Unknown Address Unknown Organization K01:[facility] [place] [address] [place] [address] Laboratory Report Ordering Provider Test Date Status PEEWEE VANEGAS 11/30/2024 09:35:53 Final Observation Date Value Abnormality Reference (Units ) Status Ferritin 11/30/2024 09:35:53 24 13-150 (ng /mL) Final Performing Location LABORATORY [facility] - [address] [place] [address]
--- OUTSIDE RECORDS SUMMARY | 2025-02-17 04:16 | External Medical Summary | Summary of Care ---
Author Name Unknown Organization [facility] Address [address] [facility] [place] [address] Phone [phone] Care Team Providers Care Funeral Attendant Name Role Phone Ivory Sykes MD Primary Care Provider Reason for Visit * Reason Comments Outpatient Testing Encounter Details Date Type Department Care Team (Late st Contact Info) Description 11/30/2024 8:20 AM EST Laboratory Laboratory, [facility] [address] [facility] [place] [phone] [facility] [address] [place] [address] High-risk in second trimester Allergies No known active allergiesdocumented as of this encounter (statuses as of 11/30/2024) Medications 27-0.8 MG TABS Take 1 Tablet by mouth in the morning. Active documented as of this encounter (statuses as of 11/30/2024) Active Problems Problem Noted Date Diagnosed Date [...] as of this encounter (statuses as of 11/30/2024) Resolved Problems Problem Noted Date Diagnosed Date [...] 05/25/2022 Overview (11/01/2020): Scheduled for delivery at [place] after 39 weeks Assessment & Plan (08/25/2020 [...] as of this encounter (statuses as of 11/30/2024) Immunizations Name Administration Dates Next Due Seasonal [...] have money to get more. Patient declined [place] Depression Scale Answer Date Recorded [place] Depression Scale Total 2 07/20/2024 The thought [...] 9:45 AM EDT Sexual Orientation Straight 05/25/2022 9 :45 AM EDT documented as of this encounter Plan of Treatment Upcoming Encounters Date Type Department Care Team (Late st Contact Info) Description 12/17/2024 9:00 AM EST Office Visit Gynecology/Obstetrics Elisa Crooks [address] [place] [address] Chrissie Gomez PA-C [address] [place] [address] Nurse Valeriy [facility] Martha [address] [place] [address] 12/24/2024 8:00 AM EST Imaging Maternal Medicine Imaging, Martha Crooks [address] [place] [phone] Pending Results Name Type Priority Associated Diagnoses Date /Time CBC WITH WBC DIFFERENTIAL AND ANEMIA REFLEX WORKUP Lab Routine High-risk in second trimester 11/30/2024 9:35 AM EST SYPHILIS ANTIBODY SCREEN WITH REFLEX TO RPR Lab Routine High-risk in second trimester 11/30/2024 9:35 AM EST ANEMIA REFLEX CHEMISTRY HOLD Lab Routine High-risk in second trimester 11/30/2024 9:35 AM EST SYPHILIS ANTIBODY SCREEN Lab Routine High-risk in second trimester 11/30/2024 9:35 AM EST RETICULOCYTE PANEL Lab Routine High-risk in second trimester 11/30/2024 9:35 AM EST Health Maintenance Due Date Last [...] Procedure Name Priority Date/Time Associated Diagnosis Comments ANEMIA CBC Routine 11/30/2024 9:35 AM EST High-risk in second trimester DIFFERENTIAL, AUTOMATED Routine 11/30/2024 9:35 AM EST High-risk in second trimester DIFFERENTIAL, TECHNOLOGIST REVIEW Routine 11/30/2024 9:35 AM EST High-risk in second trimester 50-G GESTATIONAL GLUCOSE, 1 HOUR Routine 11/30/2024 9:35 AM EST High-risk in second trimester documented in this encounter Results * DIFFERENTIAL, TECHNOLOGIST REVIEW (11/30/2024 9:35 AM EST) nRBCs 11/30/2024 12:16 PM EST [facility] [place] [facility] Blood Venous blood specimen / Unknown Venipuncture / Unknown 11/30/2024 9:35 AM EST 11/30/2024 9:35 AM EST us Mirna Stewart PA-C LAB BLOOD ORDERABLES Final R esult [facility] [place] [facility]-10 [address] [place] [address] * DIFFERENTIAL, AUTOMATED (11/30/2024 9:35 AM EST) WBC 6.32 4.00 - 10.80 K/uL 11/30/2024 12:16 PM EST [facility] [place] [facility]10 Neutrophils % 69.7 40.0 - 75.0 % 11/30/2024 12:16 PM EST [facility] [place] [facility]10 Lymphocytes % 21.8 18.0 - 42.0 % 11/30/2024 12:16 PM EST [facility] [place] 57[facility]10 Monocytes % 7.1 1.0 - 11.0 % 11/30/2024 12:16 PM EST [facility] [place] 57[facility]10 Eosinophils % 1.1 0.0 - 6.0 % 11/30/2024 12:16 PM EST [facility] [place] 57[facility]10 Basophils % 0.3 0.0 - 2.0 % 11/30/2024 12:16 PM EST [facility] [place] [facility]10 Absolute Neutrophils 4.40 1.80 - 7.70 K/uL 11/30/2024 12:16 PM EST [facility] [place] [facility]10 Absolute Lymphocytes 1.38 1.00 - 4.80 K/ul 11/30/2024 12:16 PM EST [facility] [place] [facility]10 Absolute Monocytes 0.45 0.00 - 1.10 K/uL 11/30/2024 12:16 PM EST [facility] [place] [facility]10 Absolute Eosinophils 0.07 0.00 - 0.70 K/uL 11/30/2024 12:16 PM EST [facility] [place] [facility]10 Absolute Basophils 0.02 0.00 - 0.20 K/uL 11/30/2024 12:16 PM EST [facility] [place] [facility]10 Blood Venous blood specimen / Unknown Venipuncture / Unknown 11/30/2024 9:35 AM EST 11/30/2024 9:35 AM EST us Mirna Stewart PA-C LAB BLOOD ORDERABLES Final R esult [facility] [place] [facility] [place] [address] * (ABNORMAL) ANEMIA CBC (11/30/2024 9:35 AM EST) WBC 6.32 4.00 - 10.80 K/uL 11/30/2024 12:16 PM EST [facility] [place] [facility]10 RBC 3.70 3.85 - 5.15 M/uL 11/30/2024 12:16 PM EST [facility] [place] 57[facility]10 HGB 10.2(L) 12.0 - 15.3 g/dL 11/30/2024 12:16 PM EST [facility] [place] 57-10 Comment: Anemia reflex testing triggers on a HGB < 12.0 for Females and HGB < 13.0 for Males in accordance with the WHO Anemia Guidelines Anemia reflex testing triggers on a HGB < 12.0 for Females and HGB < 13.0 for Males in accordance with the WHO Anemia Guidelines HCT 32.3(L) 36.0 - 45.2 % 11/30/2024 12:16 PM EST [facility] [place] 57[facility]10 MCV 87.3 81.5 - 97.5 fL 11/30/2024 12:16 PM EST [facility] [place] 57-10 MCH 27.6 27.0 - 34.0 pg 11/30/2024 12:16 PM EST LAB[facility] [place] 57-10 MCHC 31.6 32.0 - 36.0 g/dL 11/30/2024 12:16 PM EST [facility] [place] 57-10 RDW 13.2 11.5 - 15.5 % 11/30/2024 12:16 PM EST [facility] PLT 203 140 - 400 K/uL 11/30/2024 12:16 PM EST [facility] MPV 9.8 6.6 - 11.1 fL 11/30/2024 12:16 PM EST [facility] Blood Venous blood specimen / Unknown Venipuncture / Unknown 11/30/2024 9:35 AM EST 11/30/2024 9:35 AM EST us Mirna Stewart PA-C LAB BLOOD ORDERABLES Final R esult LAB[facility] [place] [facility] [place] [address] * 50-G GESTATIONAL GLUCOSE, 1 HOUR (11/30/2024 9:35 AM EST) 50-g Gestational Glucose, 1 Hour 121 70 - 129 mg/dL 11/30/2024 11:17 AM EST [facility] [place] [facility]10 Blood Venous blood specimen / Unknown Venipuncture / Unknown 11/30/2024 9:35 AM EST 11/30/2024 9:35 AM EST us Mirna Stewart PA-C LAB BLOOD ORDERABLES Final R esult [facility] [place] [facility] [place] [address] documented in this encounter Visit Diagnoses Diagnosis renal anomaly, single gestation- Primary Encounter for anatomic survey 25 weeks gestation of state, incidental High-risk in second trimester documented in this encounter Additional Health Concerns Active Problems Noted Date Diagnosed Date OB Reminders 08/24/2024 documented as of this encounter Advance Directives * Full Code (Latest Code Status on File) Date Activated Date Inactivated Comments 11/30/2020 9:24 PM 12/03/2020 6:16 PM This order ref lects the patients wishes and were consensually agreed upon. Care Teams Funeral Attendant Relationship Specialty Start Date End Date Ivory Sykes MD [address] [place] [address] PCP - General Family Medicine 11/14/17 documented as of this encounter
--- OUTSIDE RECORDS SUMMARY | 2025-02-17 04:16 | External Medical Summary ---
Author Name Unknown Address Unknown Organization : Laboratory Report Ordering Provider Test Date Status RONALD PAREKH 11/13/2024 09:56:48 Final Observation Date Value Abnormality Reference (Units ) Status REFERENCE LAB SCANNED REPORT 11/13/2024 09:56:48 RESULT SCAN Final Performing Location
--- OUTSIDE RECORDS SUMMARY | 2025-02-17 04:16 | External Medical Summary ---
Author Name Unknown Address Unknown Organization [id number]:LABORATORY [facility] [place] - [address] [place] [address] Laboratory Report Ordering Provider Test Date Status SHELDON CARRILLO 11/13/2024 09:56:48 Final Observation Date Value Abnormality Reference (Units ) Status MYCODE SPECIMEN-SST 11/13/2024 09:56:48 Freezing of extracted DNA, whole blood and/or serum. Final Performing Location LABORATORY [facility] - [address] [place] [address]
--- OUTSIDE RECORDS SUMMARY | 2025-02-17 04:16 | External Medical Summary ---
Author Name Unknown Address Unknown Organization [id number]:LABORATORY [facility] [place] - [address] [facility] [place] [address] Laboratory Report Ordering Provider Test Date Status PEEWEE VANEGAS 11/30/2024 09:35:53 Final Observation Date Value Abnormality Reference (Units ) Status Treponema pallidum Ab [Presence] in Serum by Immunoassay 11/30/2024 09:35:53 Nonreactive Nonreactive Final No serologic evidence of syp hilis. No additional testing clinicially indicated at this time. Consider repeat testing in 2-4 weeks if acute or primary syphilis is suspected. Performing Location LABORATORY [facility] [place] - [address] [place] [address]
--- OUTSIDE RECORDS SUMMARY | 2025-02-17 04:16 | External Medical Summary ---
Author Name Unknown Address Unknown Organization K01:LABORATORY [facility] [place] - [address] [place] [address] Laboratory Report Ordering Provider Test Date Status SHELDON CARRILLO 11/13/2024 09:56:48 Final Observation Date Value Abnormality Reference (Units ) Status MYCODE SPECIMEN-SST 11/13/2024 09:56:48 Freezing of extracted DNA, whole blood and/or serum. Final Performing Location LABORATORY [facility] [place] - [address] [place] [address]
--- OUTSIDE RECORDS SUMMARY | 2025-02-17 04:16 | External Medical Summary ---
Author Name Unknown Address Unknown Organization [id number]:[facility]AT[facility] [place] [address] - [address] [place] [address] Laboratory Report Ordering Provider Test Date Status PEEWEE VANEGAS 11/30/2024 09:35:53 Final Observation Date Value Abnormality Reference (Units ) Status Nucleated erythrocytes/100 leukocytes [Ratio] in Blood by Automated count 11/30/2024 09:35:53 Final Performing Location [facility] [place] [facility]-[address] 0 - [address] [place] [address]
--- OUTSIDE RECORDS SUMMARY | 2025-02-17 04:16 | External Medical Summary ---
Author Name Unknown Address Unknown Organization K01:[facility] [address] [place] [address] Laboratory Report Ordering Provider Test Date Status ROMINAPEEWEE 11/30/2024 09:35:53 Final Observation Date Value Abnormality Reference (Units ) Status Retic, % (auto) 11/30/2024 09:35:53 2.69 Above high normal 0.80-1.90 (%) Final Reticulocytes, Absolute 11/30/2024 09:35:53 100.1 31.3-100.1 (K/uL) Final Reticulocyte fraction, immature 11/30/2024 09:35:53 30.8 Above high normal 2.5-20.6 (%) Final Reticulocyte HGB 11/30/2024 09:35:53 28.1 Below low normal 29.7-37.4 (pg) Final Performing Location [facility] [address] [facility] [address]
--- OUTSIDE RECORDS SUMMARY | 2025-02-17 04:16 | External Medical Summary | Summary of Care ---
Author Name Unknown Organization [facility] Address [address] [facility] [place] [address] Phone [phone] Care Team Providers Care Panel Edge Sealer Name Role Phone Ivory Sykes MD Primary Care Provider Encounter Details Date Type Department Care Team (Late st Contact Info) Description 11/17/2024 Population Health External Data Unspecified Department Allergies No known active allergiesdocumented as of this encounter (statuses as of 11/17/2024) Medications 27-0.8 MG TABS Take 1 Tablet by mouth in the morning. Active documented as of this encounter (statuses as of 11/17/2024) Active Problems Problem Noted Date Diagnosed Date Health counseling 11/13/2024 Overview (11/13/2024): Problem Action Taken Date entered Entered by Date resolved nutrition [facility]/13/2024 Consuelo Bell RN 11/13/2024 Dental [...] as of this encounter (statuses as of 11/17/2024) Resolved Problems Problem Noted Date Diagnosed Date [...] 05/25/2022 Overview (11/01/2020): Scheduled for delivery at [place] after 39 weeks Assessment & Plan [...] as of this encounter (statuses as of 11/17/2024) Immunizations Name Administration Dates Next Due Seasonal [...] have money to get more. Patient declined [place] Depression Scale Answer Date Recorded [place] Depression Scale Total 2 07/20/2024 The thought [...] Description 11/30/2024 8:40 AM EST [facility] [address] [place] [phone] Kiersten Crooks [facility] [address] [place] [address] 11/30/2024 8:45 AM EST Office Visit Gynecology/Obstetrics [facility] [address] [place] [address] Will Srinivasan MD [address] [place] [address] 12/24/2024 8:00 AM EST Imaging Maternal Medicine Imaging, [facility] [address] [place] [phone] Health Maintenance Due Date Last Done Comments [...] and were consensually agreed upon. Care Teams Panel Edge Sealer Relationship Specialty Start Date End Date Ivory Sykes MD [address] [place] [address] PCP - General Family Medicine 11/14/17 documented as of this encounter
--- OUTSIDE RECORDS SUMMARY | 2025-02-17 04:17 | External Medical Summary | Summary of Care ---
Author Name Unknown Organization [facility] Address [address] [place] [address] Phone [phone] Care Team Providers Care Highway Patrol Officer Name Role Phone Ivory Sykes MD Primary Care Provider Reason for Visit * Reason Onset Date Comments Referral 10/15/2024 Encounter Details Date Type Department Care Team (Late st Contact Info) Description 10/15/2024 Telephone Entertainment Musician Obstetrics Maternal Medicine, [place] [address] [place], [place] [phone] [place], Nurse Entertainment Musician [facility] [address] [place], [place] [phone] Referral Allergies No known active allergiesdocumented as of this encounter (statuses as of 11/03/2024) Medications 27-0.8 MG TABS Take 1 Tablet [...] as of this encounter (statuses as of 11/03/2024) Active Problems Problem Noted Date Diagnosed Date Family history of defect 05/25/2022 Overview (07/20/2024): 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 Pt declined MFM referral and genetic screening for 2023 . High-risk 05/25/2022 Estimated Date of Delivery Comme nts Yes 02/15/2025 Based on last me nstrual period of 05/11/2024 documented as of this encounter (statuses as of 11/03/2024) Resolved Problems Problem Noted Date Diagnosed Date [...] 05/25/2022 Overview (11/01/2020): Scheduled for delivery at [place] after 39 weeks Assessment & Plan (08/25/2020 [...] as of this encounter (statuses as of 11/03/2024) Immunizations Name Administration Dates Next Due Seasonal [...] have money to get more. Patient declined [place] Depression Scale Answer Date Recorded [place] Depression Scale Total 2 07/20/2024 The thought [...] encounter Miscellaneous Notes * Telephone Encounter - Viv Zaldivar OSA - 10/15/2024 11:55 AM EST Spoke with Ashley. Appointment scheduled. Patient aware of date, time and location of Maternal Medicine appointment. * Telephone Encounter - Consuelo Thomas CCMA - 10/15/2024 11:15 AM EST Estimated Date of Delivery: 02/15/25 Please schedule for LONG SCAN, in time frame of within 2-3 weeks (now-11/05/24) at [facility] with the indication of missed anatomy (L kidney). Referring Provider: Tierra Mann CRNP documented in this encounter Plan of Treatment Upcoming Encounters Date Type Department Care Team (Late st Contact Info) Description 11/13/2024 9:15 AM EST Office Visit Gynecology/Obstetrics Elisa Crooks [address] [place] [address] Mirna Stewart PA-C [address] [place] [address] 12/24/2024 8:00 AM EST Imaging Maternal Medicine Imaging, Martha [place] [address] [place] [phone] Health Maintenance Due Date [...] and were consensually agreed upon. Care Teams Highway Patrol Officer Relationship Specialty Start Date End Date Ivory Sykes MD [address] [place] [address] PCP - General Family Medicine 11/14/17 documented as of this encounter
--- OUTSIDE RECORDS SUMMARY | 2025-02-17 04:17 | External Medical Summary | Summary of Care ---
Author Name Unknown Organization [facility] Address [address] [facility] [place] [address] Phone [phone] Care Team Providers Care Communications Planner Name Role Phone Ivory Sykes MD Primary Care Provider Reason for Visit * Reason Onset Date Comments Test Results 10/15/2024 Unexpected or In determinate Result Encounter Details Date Type Department Care Team (Late st Contact Info) Description 10/15/2024 Telephone Gynecology/Obstetrics [facility] [address] [place] [address] Alyssa Brar CRNP [address] [place] [address] Test Results (Unexpected or Indeterminate ... 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 Pt declined MFM referral and genetic screening for 2023 . Normal 05/25/2022 Estimated Date of Delivery Comme nts Yes 02/15/2025 Based on last me nstrual period of 05/11/2024 documented as of this encounter (statuses as of 10/15/2024) Resolved Problems Problem Noted Date Diagnosed Date [...] 05/25/2022 Overview (11/01/2020): Scheduled for delivery at [place] after 39 weeks Assessment & Plan (08/25/2020 [...] as of this encounter (statuses as of 10/15/2024) Immunizations Name Administration Dates Next Due Seasonal [...] have money to get more. Patient declined [place] Depression Scale Answer Date Recorded [place] Depression Scale Total 2 07/20/2024 The thought [...] No 10/15/2024 Does the household have a [facility] source of income? (Household - for [...] Miscellaneous Notes * Telephone Encounter - Tierra Mann CRNP - 10/15/2024 11:02 AM EST Noted. Called pt to discuss, no answer. Left generic VM with triage #. R kidney seen on u/s. Unable to see L kidney. Recommend MFM referral to rule out underdeveloped or absent L kidney. Let me know if agreeable, happy to speak w/pt if needed. MONIKA Sultana * Telephone Encounter - Ashwini Varela OSA - 10/15/2024 10:49 AM EST Hello- The radiologist discovered an unexpected or indeterminate finding on Ashley Maynard ([id number]) and asks that you review the following report. Study Type: US PREG LIMITED 1 OR MORE FETUSES Date of Study: 10/15/2024 IMPRESSION 1. Left kidney not well seen either hypoplastic or absent. Maternal- medicine consultation is recommended for further evaluation. 2. Right kidney well demonstrated. Please respond to this encounter to acknowledge receipt of this message and take responsibility to ensure this report is reviewed. Thank you, RANJEET Navarro Client Service Rep [facility] Medicine [place] documented in this encounter Plan of Treatment Upcoming Encounters Date Type Department Care Team (Late st Contact Info) Description 11/13/2024 9:15 AM EST [facility] [address] [place] [address] Mirna Stewart PA-C [address] [place] [address] Health Maintenance Due Date Last Done Comments [...] 5 Years) and At-Risk Patients (6 to 64 Years) Aged Out No longer eligible based [...] were consensually agreed upon. Care Teams Communications Planner Relationship Specialty Start Date End Date Ivory Sykes MD [address] [place], [place] [address] PCP - General Family Medicine 11/14/17 documented as of this encounter
--- OUTSIDE RECORDS SUMMARY | 2025-02-17 04:17 | External Medical Summary | Summary of Care ---
Author Name Unknown Organization [facility] Address [address] [facility] [place] [address] Phone [phone] Care Team Providers Care Pellet Mill Operator Name Role Phone Ivory Sykes MD Primary Care Provider Encounter Details Date Type Department Care Team (Late st Contact Info) Description 10/01/2024 Telephone Gynecology/[facility] [address] [place] [address] Alyssa Brar CRNP [address] [place] [address] Allergies No known active allergiesdocumented as of this encounter (statuses as of 10/01/2024) Medications 27-0.8 MG TABS Take 1 Tablet by mouth in the morning. Active Promethazine HCl 25 MG Oral Tablet (Phenergan)Indicat ions:Early stage of Take 1 Tablet by mouth every 6 hours as needed for Nausea. 30 Tablet 1 07/06/20 24 Active Additional Information Patient not taking.Reported on 09/17/2024 Ondansetron 4 MG Oral Tablet Disintegrating (Zofran)Indication s:Vomiting or nausea of Place 1 Tablet on tongue every 8 hours as needed for Nausea. dissolve on tongue. 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 Pt declined MFM referral and genetic screening for 2023 . Normal 05/25/2022 Estimated Date of Delivery Comme nts Yes 02/15/2025 Based on last me nstrual period of 05/11/2024 documented as of this encounter (statuses as of 10/01/2024) Resolved Problems Problem Noted Date Diagnosed Date [...] 05/25/2022 Overview (11/01/2020): Scheduled for delivery at [place] after 39 weeks Assessment & Plan (08/25/2020 [...] as of this encounter (statuses as of 10/01/2024) Immunizations Name Administration Dates Next Due Seasonal [...] have money to get more. Patient declined 07/2024 [place] Depression Scale Answer Date Recorded [place] Depression Scale Total 2 07/20/2024 The thought of harming myself has occurred to me . Never 07/20/2024 Childcare Answer Date Recorded Do you feel overwhelmed with taking care of a child, family member or friend? No 07/07/2024 Does your family need help f inding childcare? (Household - for ages 0-17 years) Not on file 07/07/2024 Clothing Answer Date Recorded Have you been unable to get clothing when it was really needed? No 07/07/2024 Is your family able to get c lothes or diapers when needed? (Household - for ages 0-17 years) Not on file 07/07/2024 Personal Safety Answer Date Recorded Do you feel unsafe or have concerns for your saf ety? No 07/07/2024 Do you have concerns for you r family's safety? (Household - for ages 0-17 years) Not on file 07/07/2024 Utilities Answer Date Recorded Do you have trouble paying y our heating, water, or electric bill? No 07/07/2024 Is your family able to pay t he heat, water, or electric bill? (Household - for ages 0-17 years) Not on file 07/07/2024 Does your family have access to good internet? (Household - for ages 0-17 years) Not on file 07/07/2024 Employment Status Answer Date Recorded Are you unemployed or without regular income? No 07/07/2024 Does the household have a re lar source of income? (Household - for ages 0-17 years) Not on file 07/07/2024 Social Connections Answer Date Recorded How often do you feel lonely or isolated from th ose around you? Never 07/07/2024 Financial Resource Strain Answer Date R ecorded Do you have any trouble payi ng for your medications, or do you think you might in the future? No 07/07/2024 Does your family have troubl e paying for medicine? (Household - for ages 0-17 years) Not on file 07/07/2024 Transportation Needs Answer Date Record ed Do you have trouble getting a ride to medical visits or work? (Adult - for ages 18 years and over) Not on file 07/07/2024 Does your family have a hard time getting a ride to doctors visits? (Household - for ages 0-17 years) Not on file 07/07/2024 Has lack of transportation k ept you from medical appointments, meetings, work, or from getting things needed for daily living? Check all that apply. No 07/07/2024 Do you (or your family) have trouble finding or paying for a ride (transportation)? (Household - for ages 0-17 years) Not on file 07/07/2024 Housing Stability Answer Date Recorded Do you currently live in a s helter or have no steady place to sleep at night? No 07/07/2024 Do you think you are at risk of becoming homeless? (Adult - for ages 18 years and over) Not on file 07/07/2024 Does your family worry about paying for your home or becoming homeless? (Household - for ages 0-17 years) Not on file 0 07/07/2024 Are you homeless or worried that you might be in the future? No 07/07/2024 Are you (or your family) janki eless or worried that you might be in the future? (Household - for ages 0-17 years) Not on file Food Insecurity Answer Date Recorded Do you need food for this week? No 07/07/2024 Are you able to get enough f ood for your family? (Household - for ages 0-17 years) Not on file 07/07/2024 Does your family need food t his week? (Household - for ages 0-17 years) Not on file 07/07/2024 Do you always have enough fo od for your family? (Household - for ages 0-17 years) Not on file 07/07/2024 Estimated Date of Delivery Comme nts Yes 02/15/2025 Based on last me nstrual period of 05/11/2024 Sex and Gender Information Value Date Recorded Sex Assigned at Female 05/25/2022 9:45 AM EDT Legal Sex Female 6:53 AM EST Gender Identity Female 05/25/2022 9:45 AM EDT Sexual Orientation Straight 05/25/2022 9: 45 AM EDT documented as of this encounter Miscellaneous Notes * Telephone Encounter - Jean Raza OSA - 10/01/2024 3:11 PM EST LMOM for a call back to schedule US RANJEET To * Telephone Encounter - Alyssa Brar CRNP - 10/01/2024 9:17 AM EST Needs u/s in about 2 weeks for missed anatomy, please help schedule. Order placed. documented in this encounter Plan of Treatment Upcoming Encounters Date Type Department Care Team (Late st Contact Info) Description 10/15/2024 9:15 AM EST Office Visit Gynecology/Obstetrics [facility] [address] [place] [address] Tierra Mann CRNP [address] [place] [address] Scheduled Orders Name Type Priority Associated Diagnoses Orde r Schedule US PREG LIMITED 1 OR MORE FETUSES Medical Imaging Routine Encounter for follow-up ultrasound of anatomy Expected: 10/15/2024 (Approximate), Expires: 11/01/2025 Health Maintenance Due Date Last Done Comments [...] as of this encounter Visit Diagnoses Diagnosis Encounter for follow-up ultrasound of anatomy- Primary documented in this encounter Additional Health Concerns Active Problems Noted Date Diagnosed Date OB Reminders 08/24/2024 documented as of this encounter Advance Directives * Full Code (Latest Code Status on File) Date Activated Date Inactivated Comments 11/30/2020 9:24 PM 12/03/2020 6:16 PM This order ref lects the patients wishes and were consensually agreed upon. Care Teams Pellet Mill Operator Relationship Specialty Start Date End Date Ivory Sykes MD [address] [place] [address] PCP - General Family Medicine 11/14/17 documented as of this encounter
--- OUTSIDE RECORDS SUMMARY | 2025-02-17 04:17 | External Medical Summary | Summary of Care ---
Author Name Unknown Organization [facility] Address [address] [place] [address] Phone [phone] Care Team Providers Care Battery Tester Field Name Role Phone Ivory Sykes MD Primary [...] weeks gestation of AnnaliseEster, DO [address] [place] [address] Phone: tel: fax: Referral ID Status Reason Start Date Expiration Date Visits Requested Visits Authorized [id number] Pending Review Specialty Services Required 11/03/[id number] Encounter Details Date Type Department Care Team (Late st Contact Info) Description 11/04/2024 2:00 PM EST Telemedicine Finance Attorney Obstetrics Maternal Medicine, [place] [address] [place] [address] Marlen Damian, MS [address] [place] [address] renal anomaly, single gestation*; Family history of [...] 05/25/2022 Overview (11/01/2020): Scheduled for delivery at [place] after 39 weeks Assessment & Plan (08/25/2020 [...] have money to get more. Patient declined [place] Depression Scale Answer Date Recorded [place] Depression Scale Total 2 07/20/2024 The thought [...] EST GENETIC COUNSELING FOR MATERNAL MEDICINE at [facility] | | Email: [email or web address] Name: Ashley Maynard Date: 11/04/2024 - 2:00 PM EST Providers Present: Marlen Damian, MS, Dr. Nat Rich, GC Program Writer Shyanne Lugo REASON FOR VISIT: Genetic Counseling for unilateral renal agenesis. HPI: Ashlye Maynard is a 29 year old with [...] - High risk ancestry: denies (eg: ashkenazi amish, kyrgyz-guinean). - Consanguinity: denies. Pertinent positives: The patient's [...] carrier screening, testing for 600 disorders through [facility] [employer]. Partner will consider after. (4) Follow Up: [...] two unique identifiers. Patient (or authorized legal health and safety representative) was then informed that this was [...] 11/13/2024 9:15 AM EST Office Visit [facility] [address] [place] [address] Mirna Stewart PA-C [address] [place] [address] 12/24/2024 8:00 AM EST Imaging Maternal Medicine Imaging, [facility] [address] [place] [phone] Scheduled Orders Name Type Priority Associated Diagnoses [...] and were consensually agreed upon. Care Teams Battery Tester Field Relationship Specialty Start Date End Date Ivory Sykes MD [address] [place] [address] PCP - General Family Medicine 11/14/17 documented as of this encounter
--- OUTSIDE RECORDS SUMMARY | 2025-02-17 04:17 | External Medical Summary | Summary of Care ---
Author Name Unknown Organization [facility] Address [address] [facility] [place] [address] Phone [phone] Care Team Providers Care Rotary Lithographic Press Operator Name Role Phone Ivory Sykes MD Primary Care Provider Reason for Visit * Reason Onset Date Comments Medication Refill 09/05/2024 Encounter Details Date Type Department Care Team (Late st Contact Info) Description 09/05/2024 Refill Gynecology/Obstetrics [facility] [address] [place] [address] Tierra Mann CRNP [address] [facility] [place] [address] Vomiting or nausea of Allergies No known active allergiesdocumented as of this encounter (statuses as of 09/07/2024) Medications 27-0.8 MG TABS Take 1 Tablet by mouth in the morning. Active Promethazine HCl 25 MG Oral Tablet (Phenergan)Indicat ions:Early stage of Take 1 Tablet by mouth every 6 hours as needed for Nausea. 30 Tablet 1 07/06/20 Active Additional Information Patient not taking.Reported on 08/20/2024 Ondansetron 4 MG Oral Tablet Disintegrating (Zofran)Indication s:Vomiting or nausea of Place 1 Tablet on tongue every 8 hours as needed for Nausea. dissolve on tongue. 30 Tablet 3 09/07/20 Active Ondansetron 4 MG Oral Tablet Disintegrating (Zofran)Indication s:Vomiting or nausea of Place 1 Tablet on tongue every 8 hours as needed for Nausea. dissolve on tongue. 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 Pt declined [facility] referral and genetic screening for 2023 . Normal 05/25/2022 Estimated Date of Delivery Comme nts Yes 02/15/2025 Based on last me nstrual period of 05/11/2024 documented as of this encounter (statuses as of 09/07/2024) Resolved Problems Problem Noted Date Diagnosed Date [...] 05/25/2022 Overview (11/01/2020): Scheduled for delivery at [place] after 39 weeks Assessment & Plan (08/25/2020 [...] as of this encounter (statuses as of 09/07/2024) Immunizations Name Administration Dates Next Due Seasonal [...] money to get more. Patient declined 07/2024 [place] Depression Scale Answer Date Recorded [place] Depression Scale Total 2 07/20/2024 The thought [...] 07/07/2024 Does the household have a re gular [...] encounter Miscellaneous Notes * Telephone Encounter - Michael Brar CRNP - 09/07/2024 12:20 PM ESTSigned Prescriptions: Disp Refills Ondansetron 4 MG Oral Tablet Disintegratin*30 Tab*3 Sig: Place 1 Tablet on tongue every 8 hours as needed for Nausea. dissolve on tongue. Authorizing Provider: MICHAEL BRAR * Telephone Encounter - Nola Feliciano LPN - 09/07/2024 11:44 AM ESTPending Prescriptions: Disp Refills Ondansetron 4 MG Oral Tablet Disintegratin*30 Tab*3 Sig: Place 1 Tablet on tongue every 8 hours as needed for Nausea. dissolve on tongue. documented in this encounter Plan of Treatment Upcoming Encounters Date Type Department Care Team (Late st Contact Info) Description 09/17/2024 9:00 AM EST Office [facility] [address] [place] [address] Michael Brar CRNP [address] [place] [address] Health Maintenance Due Date Last Done Comments [...] as of this encounter Visit Diagnoses Diagnosis Vomiting or nausea of Unspecified vomiting of , unspecified as to episode of care documented in this encounter Additional Health Concerns Active Problems Noted Date Diagnosed Date OB Reminders 08/24/2024 documented as of this encounter Advance Directives * Full Code (Latest Code Status on File) Date Activated Date Inactivated Comments 11/30/2020 9:24 PM 12/03/2020 6:16 PM This order ref lects the patients wishes and were consensually agreed upon. Care Teams Rotary Lithographic Press Operator Relationship Specialty Start Date End Date Ivory Sykes MD [address] [place] [address] PCP - General Family Medicine 11/14/17 documented as of this encounter
--- OUTSIDE RECORDS SUMMARY | 2025-02-17 04:17 | External Medical Summary | Summary of Care ---
Author Name Unknown Organization [facility] Address [address] [place] [address] Phone [phone] Care Team Providers Care Manager Area Name Role Phone Ivory Sykes MD Primary Care Provider Reason for Visit * Reason Onset Date Comments Referral 10/15/2024 Encounter Details Date Type Department Care Team (Late st Contact Info) Description 10/15/2024 Telephone Liquid Compounder Obstetrics Maternal Medicine, [place] [address] [place], [place] [id number] [place], Nurse Liquid Compounder [facility] [address] [place], [place] [id number] Referral Allergies No known active allergiesdocumented as [...] 05/25/2022 Overview (11/01/2020): Scheduled for delivery at [place] after 39 weeks Assessment & Plan (08/25/2020 [...] have money to get more. Patient declined [place] Depression Scale Answer Date Recorded [place] Depression Scale Total 2 07/20/2024 The thought [...] frame of within 2-3 weeks (now-11/05/24) at location [facility] with the indication of missed anatomy (L kidney). Referring Provider: Tierra Mann CRNP documented in this encounter Plan of Treatment Upcoming Encounters Date Type Department Care Team (Late st Contact Info) Description 11/03/2024 7:30 AM EST Office Visit Liquid Compounder Obstetrics Maternal Medicine, [place] [address] [place] [address] Annalise Ester De Sandra [address] [place] [address] 11/03/2024 7:30 AM EST Imaging Radiology [facility], [place] [address] [place] [address] 11/13/2024 9:15 AM EST Office [facility] [address] [place] [address] Mirna Stewart PA-C [address] [place] [address] Health Maintenance Due Date Last Done Comments [...] were consensually agreed upon. Care Teams Manager Area Relationship Specialty Start Date End Date Ivory Sykes MD [address] [place] [address] PCP - General Family Medicine 11/14/17 documented as of this encounter
--- OUTSIDE RECORDS SUMMARY | 2025-02-17 04:17 | External Medical Summary | Summary of Care ---
Author Name Unknown Organization [facility] Address [address] [facility] [place] [address] Phone [phone] Care Team Providers Care Laser Printing Operator Name Role Phone Ivory Sykes MD Primary Care Provider Reason for Visit * Reason Comments Return Visit Encounter Details Date Type Department Care Team (Late st Contact Info) Description 10/15/2024 9:15 AM EST Office Visit Gynecology/Obstetric s Elisa Crooks [address] [place] [address] Tierra Mann CRNP [address] [place] [address] Normal in second trimester*; Family history of defect Allergies No known active allergiesdocumented as of [...] 05/25/2022 Overview (11/01/2020): Scheduled for delivery at [place] after 39 weeks Assessment & Plan (08/25/2020 [...] have money to get more. Patient declined [place] Depression Scale Answer Date Recorded [place] Depression Scale Total 2 07/20/2024 The thought [...] No 10/15/2024 Does the household have a [facility] source of income? (Household - for ages [...] Sign Reading Time Taken Comments Blood Pressure 122/68 10/15/2024 9:13 AM EST Pulse - - Temperature - - Respiratory Rate - - Oxygen Saturation - - Inhaled Oxygen Concentration - - Weight 78.9 kg (174 lb) 10/15/2024 9:13 AM EST Height - - Body Mass Index 29.87 07/20/2024 9:15 AM EDT documented in this encounter Progress Notes * Tierar Mann CRNP - 10/15/2024 9:15 AM EST 22w3d Nausea significantly better, not requiring medication. Missed anatomy scan today, report in process. + movement. No cramping or bleeding. 4 week return MONIKA Sultana * Katelyn Mcdaniel CMA - 10/15/2024 9:13 AM EST 22w3d Denies any concerns documented in this encounter Plan of Treatment Upcoming Encounters Date Type Department Care Team (Late st Contact Info) Description 11/13/2024 9:15 AM EST Office Visit Gynecology/Obstetrics Elisa Crooks [address] [place] [address] Mirna Stewart PA-C [address] [place] [address] Health Maintenance Due Date Last Done Comments [...] Author Reminders Care Plan OB Reminders No Karen Provider documented as of this encounter Medical Devices Not on filedocumented as of this encounter Visit Diagnoses Diagnosis Normal in second trimester- Primary Family history of defect Family history of congenital anomalies documented in this encounter Additional Health Concerns Active Problems Noted Date Diagnosed Date OB Reminders 08/24/2024 documented as of this encounter Advance Directives * Full Code (Latest Code Status on File) Date Activated Date Inactivated Comments 11/30/2020 9:24 PM 12/03/2020 6:16 PM This order ref lects the patients wishes and were consensually agreed upon. Care Teams Laser Printing Operator Relationship Specialty Start Date End Date Ivory Sykes MD [address] [address] PCP - General Family Medicine 11/14/17 documented as of this encounter
--- OUTSIDE RECORDS SUMMARY | 2025-02-17 04:17 | External Medical Summary | Summary of Care ---
Author Name Unknown Organization [facility] Address [address] [place] [address] Phone [phone] Care Team Providers Care Technical Business Analyst Name Role Phone Ivory Sykes MD Primary Care Provider Reason for Referral * Evaluate & Treat - Unlimited Visits (Within 10 days (routine)) - Pending Review Specialty Diagnoses / Procedures Referred By Larry gregorio Referred To Contact Obstetrics/Gynecology / Maternal Medicine Diagnoses Abnormal ultrasound Normal in second trimester Tracy Mcmahan CRNP [address] [place] [address] Phone: tel: fax: Referral ID Status Reason Start Date Expiration Date Visits Requested Visits Authorized [id number] Pending Review Specialty Services Required 4 [phone] Question Answer Referral Priority Within 10 days (routine) Has the patient had a viability scan? 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 Jessi Comments /Para: LMP: Patient's last menstrual period was 05/11/2024. Patient is . EUGENIO: 02/15/2025, by Last Menstrual Period Pre-Gravid BMI: 27.11 Reason for Visit * Reason Onset Date Comments Test Results 10/15/2024 Unexpected or In determinate Result Encounter Details Date Type Department Care Team ([facility] Contact Info) Description 10/15/2024 Telephone Gynecology/Obstetrics Elisa Crooks [address] [place] [address] Alyssa Brar CRNP [address] [place] [address] Test Results (Unexpected or Indeterminate ... Allergies [...] 05/25/2022 Overview (11/01/2020): Scheduled for delivery at [place] after 39 weeks Assessment & Plan (08/25/2020 [...] have money to get more. Patient declined [place] Depression Scale Answer Date Recorded [place] Depression Scale Total 2 07/20/2024 The thought [...] as of this encounter Miscellaneous Notes * Addendum Note - Tracy Mcmahan CRNP - 10/15/2024 11:14 AM EST Addended by: TRACY MCMAHAN on: 10/15/2024 11:14 AM Modules accepted: Orders * Telephone Encounter - Tracy Mcmahan CRNP - 10/15/2024 11:14 AM EST Referral placed, they will reach out to her for scheduling. MONIKA Sultana * Telephone Encounter - Yeni Boggs LPN - 10/15/2024 11:06 AM EST Pt returned call. Aware of results, accepts referral. Answered questions regarding mfm and their appointment/scheduling process to the best of my ability. She declines needing to speak to a provider at this time but will call back if she has further questions. * Telephone Encounter - Tracy Mcmahan CRNP - 10/15/2024 11:02 AM EST Noted. [...] Varela OSA - 10/15/2024 10:49 AM EST [place]- The radiologist discovered an unexpected or indeterminate finding on Ashley Maynard ([id number]) and asks that you review the following [...] Thank you, RANJEET Navarro Client Service Rep [facility] Medicine [place] documented in this encounter Plan of Treatment Upcoming Encounters Date Type Department Care Team (Late st Contact Info) Description 11/13/2024 9:15 AM EST Office Visit Gynecology/Obstetrics [facility] [address] [place] [address] Mirna Stewart PA-C [address] [place] [address] Scheduled Orders Name Type Priority Associated Diagnoses Orde r Schedule MFM US MATERNAL 1ST FETUS Medical Imaging Routine Abnormal ultrasound Normal in second trimester Expected: 10/22/2024 (Approximate), Expires: 11/15/2025 Scheduled Referrals Name Type Priority Associated Diagnoses Orde r Schedule MATERNAL MEDICINE REFERRAL OP Referral Within 10 days (routine) Abnormal ultrasound Normal in second trimester Ordered: 10/15/2024 Health Maintenance Due Date Last Done Comments Hepatitis B Vaccine (1 of + 3-dose series) 01/23/2016 Depression Screening 11/01/2021 11/01/2020 [...] as of this encounter Visit Diagnoses Diagnosis Abnormal ultrasound- Primary Abnormal findings on screening Normal in second trimester documented in this encounter Additional Health Concerns Active Problems Noted Date Diagnosed Date OB Reminders 08/24/2024 documented as of this encounter Advance Directives * Full Code (Latest Code Status on File) Date Activated Date Inactivated Comments 11/30/2020 9:24 PM 12/03/2020 6:16 PM This order ref lects the patients wishes and were consensually agreed upon. Care Teams Technical Business Analyst Relationship Specialty Start Date End Date Ivory Sykes MD [address] [place] [address] PCP - General Family Medicine 11/14/17 documented as of this encounter
--- OUTSIDE RECORDS SUMMARY | 2025-02-17 04:17 | External Medical Summary | Summary of Care ---
Author Name Unknown Organization [facility] Address [address] [place] [address] Phone [phone] Care Team Providers Care Cutting Department Supervisor Name Role Phone Ivory Sykes MD Primary Care Provider Reason for Visit * Reason Onset Date Comments Referral 11/03/2024 Genetic Counseli justino Referral Encounter Details Date Type Department Care Team (Late st Contact Info) Description 11/03/2024 Telephone Slug Press Operator Obstetrics Maternal Medicine, [place] [address] [place] [address] Fatou Mendoza CHRA Referral (Genetic Counseling Referral) Allergies No known active allergiesdocumented as of [...] 05/25/2022 Overview (11/01/2020): Scheduled for delivery at [place] after 39 weeks Assessment & Plan (08/25/2020 [...] have money to get more. 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 Visit can be in person "genetic counseling MFM" or "new video visit home." Visit type is based on patient preferenceand genetic counselor in person availability. Respectfully, Fatou Mendoza Genetic Counseling Bonsai Culturist Maternal Medicine/MyCode [facility] For further questions call the Genetic Counselor at + . documented in this encounter Plan of Treatment Upcoming Encounters Date Type Department Care Team (Late st Contact Info) Description 11/13/2024 9:15 AM EST Office Visit [facility] [address] [place] [address] Mirna Stewart PA-C [address] [place] [address] 12/24/2024 8:00 AM EST Imaging Maternal Medicine Imaging, [facility] [address] [place] [phone] Health Maintenance Due Date Last Done Comments [...] and were consensually agreed upon. Care Teams Cutting Department Supervisor Relationship Specialty Start Date End Date Ivory Sykes MD [address] [place] [address] PCP - General Family Medicine 11/14/17 documented as of this encounter
--- OUTSIDE RECORDS SUMMARY | 2025-02-17 04:17 | External Medical Summary | Summary of Care ---
Author Name Unknown Organization [facility] Address [address] [place] [address] Phone [phone] Care Team Providers Care Cdl Service Technician Name Role Phone Ivory Sykes MD Primary Care Provider Reason for Visit * Reason Onset Date Comments Referral 11/03/2024 Genetic Counseli justino Referral Encounter Details Date Type Department Care Team (Late st Contact Info) Description 11/03/2024 Telephone Oral Surgery Technician Obstetrics Maternal Medicine, [place] [address] [place] [address] Fatou Mendoza CHRA Referral (Genetic [...] 05/25/2022 Overview (11/01/2020): Scheduled for delivery at [place] after 39 weeks Assessment & Plan (08/25/2020 [...] have money to get more. Patient declined [place] Depression Scale Answer Date Recorded [place] Depression Scale Total 2 07/20/2024 The thought [...] Encounter - Fatou Mendoza CHRA - 11/03/2024 1:21 PM EST Spoke to the patient about their genetic counseling referral. Scheduled the patient for a genetic counseling appointment on 11/04/2024 at 2:00PM. Appointment link sent to the patient's phone number. Respectfully, Fatou Mendoza Genetic Counseling Airborne Weapons Technical Manager Maternal Medicine/MyCode [facility] [place] For further questions call the Genetic Counselor at + . 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 Visit can be in person "genetic counseling MFM" or "new video visit home." Visit type is based on patient preferenceand genetic counselor in person availability. Respectfully, Fatou Mendoza Genetic Counseling Airborne Weapons Technical Manager Maternal Medicine/MyCode [facility] For further questions call the Genetic Counselor at + . documented in this encounter Plan of Treatment Upcoming Encounters Date Type Department Care Team (Late st Contact Info) Description 11/04/2024 2:00 PM EST Telemedicine Oral Surgery Technician Obstetrics Maternal Medicine, [place] [address] [place] [address] Marlen Damian, MS [address] [place] [address] 11/13/2024 9:15 AM EST Office Visit Gynecology/Obstetrics [facility] [address] [place] [phone] Mirna Stewart PA-C [address] [place] [address] 12/24/2024 8:00 AM EST Imaging Maternal Medicine Imaging, [facility] [address] [place] [phone] Health Maintenance Due Date Last Done Comments [...] and were consensually agreed upon. Care Teams Cdl Service Technician Relationship Specialty Start Date End Date Ivory Sykes MD [address] [place], [place] [address] PCP - General Family Medicine 11/14/17 documented as of this encounter
--- OUTSIDE RECORDS SUMMARY | 2025-02-17 04:17 | External Medical Summary | Summary of Care ---
Author Name Unknown Organization [facility] Address [address] [facility] [place] [address] Phone [phone] Care Team Providers Care Knife Cutter Name Role Phone Ivory Sykes MD Primary Care Provider Reason for Visit * Reason Onset Date Comments Test Results 10/15/2024 Unexpected or In determinate Result Encounter Details Date Type Department Care Team (Late st Contact Info) Description 10/15/2024 Telephone Gynecology/Obstetrics [facility] [address] [place] [address] Alyssa Brar CRNP [address] [place] [address] Test Results (Unexpected or Indeterminate ... Allergies [...] 05/25/2022 Overview (11/01/2020): Scheduled for delivery at [place] after 39 weeks Assessment & Plan (08/25/2020 [...] have money to get more. Patient declined [place] Depression Scale Answer Date Recorded [place] Depression Scale Total 2 07/20/2024 The thought [...] No 10/15/2024 Does the household have a [facility] source of income? (Household - for [...] unexpected or indeterminate finding on Ashley Maynard ([id number]) and asks that you review the following [...] Thank you, RANJEET Navarro Client Service Rep [facility] Medicine [place] documented in this encounter Plan of Treatment Upcoming Encounters Date Type Department Care Team (Late st Contact Info) Description 11/13/2024 9:15 AM EST Office Visit [facility]necology[facility] [address] [place] [phone] Mirna Stewart PA-C [address] [place] [address] Health Maintenance Due Date Last Done Comments [...] and were consensually agreed upon. Care Teams Knife Cutter Relationship Specialty Start Date End Date Ivory Sykes MD [address] [place], [place] [address] PCP - General Family Medicine 11/14/17 documented as of this encounter
--- OUTSIDE RECORDS SUMMARY | 2025-02-17 04:17 | External Medical Summary | Summary of Care ---
Author Name Unknown Organization [facility] Address [address] [facility] [place] [address] Phone [phone] Care Team Providers Care Sommelier Name Role Phone Ivory Sykes MD Primary Care Provider Reason for Visit * Reason Onset Date Comments Test Results 10/15/2024 Unexpected or In determinate Result Encounter Details Date Type Department Care Team (Late st Contact Info) Description 10/15/2024 Telephone Gynecology/Obstetrics [facility] [address] [place] [address] Alyssa Brar CRNP [address] [place] [phone] Test Results (Unexpected or Indeterminate ... Allergies [...] 05/25/2022 Overview (11/01/2020): Scheduled for delivery at [place] after 39 weeks Assessment & Plan (08/25/2020 [...] have money to get more. Patient declined [place] Depression Scale Answer Date Recorded [place] Depression Scale Total 2 07/20/2024 The thought [...] No 10/15/2024 Does the household have a [facility] source [facility] income? (Household - for [...] encounter Miscellaneous Notes * Telephone Encounter - Yeni Boggs LPN - 10/15/2024 11:06 AM EST Pt returned call. Aware of results, accepts referral. Answered questions regarding mfm and their appointment/scheduling process to the best of my ability. She declines needing to speak to a provider at this time but will call back if she has further questions. * Telephone Encounter - Tierra Mann CRNP [...] unexpected or indeterminate finding on Ashley Maynard ([id number]) and asks that you review the following [...] Thank you, RANJEET Navarro Client Service Rep [facility][1] Medicine [place] documented in this encounter Plan of Treatment Upcoming Encounters Date Type Department Care Team (Late st Contact Info) Description 11/13/2024 9:15 AM EST Office Visit Gynecology/Obstetrics [facility] [address] [place] [address] Mirna Stewart PA-C [address] [place] [address] Health Maintenance Due Date Last Done Comments [...] and were consensually agreed upon. Care Teams Sommelier Relationship Specialty Start Date End Date Ivory Sykes MD [address] [place] [address] PCP - General Family Medicine 11/14/17 documented as of this encounter
--- OUTSIDE RECORDS SUMMARY | 2025-02-17 04:17 | External Medical Summary | Summary of Care ---
Author Name Unknown Organization [facility] Address [address] [facility] [place] [address] Phone [phone] Care Team Providers Care Development Manager Name Role Phone Ivory Sykes MD Primary Care Provider Reason for Visit * Reason Comments Return Visit Encounter Details Date Type Department Care Team (Late st Contact Info) Description 10/15/2024 9:15 AM EST Office Visit Gynecology/Obstetric s Elisa Crooks [address] [place] [address] Tierra Mann CRNP [address] [place] [address] Normal in second trimester*; Family history of [...] 05/25/2022 Overview (11/01/2020): Scheduled for delivery at [place] after 39 weeks Assessment & Plan (08/25/2020 [...] have money to get more. Patient declined [place] Depression Scale Answer Date Recorded [place] Depression Scale Total 2 07/20/2024 The thought [...] No 10/15/2024 Does the household have a [facility] source of income? (Household - for [...] Progress Notes * Tierra Mann CRNP - 10/15/2024 9:15 AM EST [...] Elisa Crooks [address] [place] [address] Mirna Stewart PA-C [address] [place] [address] Health Maintenance Due Date Last Done Comments [...] and were consensually agreed upon. Care Teams Development Manager Relationship Specialty Start Date End Date Ivory Sykes MD [address] [place] [address] PCP - General Family Medicine 11/14/17 documented as of this encounter
--- OUTSIDE RECORDS SUMMARY | 2025-02-17 04:17 | External Medical Summary | Summary of Care ---
Author Name Unknown Organization [facility] Address [address] [place] [address] Phone [phone] Care Team Providers Care Remote Sensing Analyst Name Role Phone Ivory Sykes MD Primary Care Provider Reason for Referral * Evaluate & Treat - Unlimited Visits (Within 10 days (routine)) - Pending Review Specialty Diagnoses / Procedures Referred By Larry gregorio Referred To Contact Maternal and Medicine Diagnoses renal anomaly, single gestation Encounter for anatomic survey 25 weeks gestation of Ester Woody DO [address] [place] [address] Phone: tel: fax: Referral ID Status Reason Start Date Expiration Date Visits Requested Visits Authorized [id number] Pending Review Specialty Services Required 11/03/2024 1 1 Question Answer Referral Priority Within 10 days (routine) Referral Reason unilateral renal agenesis-- OK to deliver at [facility]? Does the patient have a [facility] OB provider? Yes Where should this appointment be scheduled? [facility] * Evaluate & Treat - Unlimited Visits (Within 10 days (routine)) - Pending Review Specialty Diagnoses / Procedures Referred By Larry gregorio Referred To Contact Medical Genetics / Hematology Oncology Diagnoses renal anomaly, single gestation Encounter for anatomic survey 25 weeks gestation of Ester Woody DO [address] [place] [address] Phone: tel: fax: Referral ID Status Reason Start Date Expiration Date Visits Requested Visits Authorized [id number] Pending Review Specialty Services Required 11/03/[id number] Question Answer Referral Priority Within 10 days (routine) Where should this appointment be scheduled? [facility] Is this referral request related to one of the following genetics sub-specialties? If unsure of category, use Medical Genetics Ask-A-Doc. /Preconception Comments Unilateral renal agenesis Reason for Visit * Reason Comments Ultrasound * Evaluate & Treat - Unlimited Visits (Within 10 days (routine)) - Pending Review Specialty Diagnoses / Procedures Referred By Contandie t Referred To Contact Obstetrics/Gynecology / Maternal Medicine Diagnoses Abnormal ultrasound Normal in second trimester Tierra Mann CRNP [address] [facility] [address] Phone: tel: fax: Referral ID Status Reason Start Date Expiration Date Visits Requested Visits Authorized [id number] Pending Review Specialty Services Required [phone] Encounter Details Date Type Department Care Team (Late st Contact Info) Description 11/03/2024 7:30 AM EST Office Visit Product Safety Test Engineer Obstetrics Maternal Medicine, [place] [address], [place] [phone] Ester Woody DO [address] [place], [place] [phone] renal anomaly, single gestation*; Encounter for anatomic survey; 25 weeks gestation of Allergies No known active [...] 05/25/2022 Overview (11/01/2020): Scheduled for delivery at [place] after 39 weeks Assessment & Plan (08/25/2020 [...] have money to get more. Patient declined [place] Depression Scale Answer Date Recorded [place] Depression Scale Total 2 07/20/2024 The thought [...] Progress Notes * Ester Woody, DO - 11/03/2024 9:37 AM EST MATERNAL MEDICINE VISIT Patient location: CLINIC. I was not in a hospital or clinic location. After connecting through [employer], patient was verified with two unique identifiers. Patient (or authorized legal office machines sales representative) was then informed that this was a Telemedicine visit and being conducted confidentially over secure lines. My office door was closed. No one else was in the room with me. Patient acknowledged consent and understanding of privacy and security of the Telemedicine visit, and gave permission to have atelemedicine presenter stay in the room in order to assist with the history and to conduct the examas needed. I informed the patient that I have reviewed their record in [facility] and presented the opportunity for them to ask any questions regarding the visit today. The patient agreed to participate. Ashley Maynard presented today at 25w1d for an ultrasound and follow-up of her high risk . She was seen for the following indications: Problem List Items Addressed This Visit renal anomaly, single gestation - Primary At your request, findings of today's u/s [...] Test Result Information Act, I have discussed withthe patient the significant findings from the diagnostic imaging service performed today. They haveexpressed their understanding and signed the acknowledgement form. Relevant Orders MFM US PREG FOLLOW UP EACH FETUS GENETICS REFERRAL OP [facility] Other Visit Diagnoses Encounter for anatomic survey Relevant Orders MFM US PREG FOLLOW UP EACH FETUS GENETICS REFERRAL OP [facility] OP 25 weeks gestation of Relevant Orders MFM US PREG FOLLOW UP EACH FETUS GENETICS REFERRAL OP [facility] OP We reviewed today's ultrasound findings. 25w1d for anatomical survey. 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 Normal growth. (For full details, please refer to ultrasound report provided separately). Ms. Maynard's questions were answered to her satisfaction. She was advised to contact our office or her OB provider for any additional questions regarding her . RECOMMENDATIONS: Recommend follow up ultrasound with MFM in 6-8 weeks for growth secondary to above indications. Genetic counseling. Referred to pediatrics. Thank you for allowing us to participate in the care of this patient. Please call with any questions. Ester Woody DO 11/03/2024 9:37 AM documented in this encounter Miscellaneous Notes * Assessment & Plan Note - Ester Woody DO - 11/03/2024 9:01 AM EST Associated Problem(s): renal anomaly, single gestation At your request, findings of today's u/s [...] Test Result Information Act, I have discussed withthe patient the significant findings from the diagnostic imaging service performed today. They haveexpressed their understanding and signed the acknowledgement form. documented in this encounter Plan of Treatment Upcoming Encounters Date Type Department Care Team (Late st Contact Info) Description 11/13/2024 9:15 AM EST Office Visit Gynecology/Obstetrics [facility] [address] [place] [address] Mirna Stewart PA-C [address] [place] [address] 12/24/2024 8:00 AM EST Imaging Maternal Medicine Imaging, [facility] [address] [place] [phone] Scheduled Orders Name Type Priority Associated Diagnoses Orde r Schedule MFM US PREG FOLLOW UP EACH FETUS Medical Imaging Routine renal anomaly, single gestation Encounter for anatomic survey 25 weeks gestation of 6 Occurrences starting 11/03/2024 until 05/03/2025 Scheduled Referrals Name Type Priority Associated Diagnoses Orde r Schedule GENETICS REFERRAL OP Referral Within 10 d ays (routine) renal anomaly, single gestation Encounter for anatomic survey 25 weeks gestation of Ordered: 11/03/2024 [facility] Referral Within 10 days (routine) renal anomaly, single gestation Encounter for anatomic survey 25 weeks gestation of Ordered: 11/03/2024 Health Maintenance Due Date Last Done Comments Hepatitis B Vaccine (1 of 3 - 19+ 3-dose series) 01/23/2016 Depression Screening 11/01/2021 11/01/2020 COVID-19 Vaccine (2023-2 5 season) 2024 Influenza Vaccine (FLU shot) [...] survey 25 weeks gestation of state, incidental documented in this encounter Additional Health Concerns Active Problems Noted Date Diagnosed Date OB Reminders 08/24/2024 documented as of this encounter Advance Directives * Full Code (Latest Code Status on File) Date Activated Date Inactivated Comments 11/30/2020 9:24 PM 12/03/2020 6:16 PM This order ref lects the patients wishes and were consensually agreed upon. Care Teams Remote Sensing Analyst Relationship Specialty Start Date End Date Ivory Sykes MD [address] [place] [address] PCP - General Family Medicine 11/14/17 documented as of this encounter
--- OUTSIDE RECORDS SUMMARY | 2025-02-17 04:17 | External Medical Summary | Summary of Care ---
Author Name Unknown Organization [facility] Address [address] [facility] [place] [address] Phone [phone] Care Team Providers Care Ramp Jockey Name Role Phone Ivory Sykes MD Primary Care Provider Reason for Visit * Reason Comments Return Visit Encounter Details Date Type Department Care Team (Late st Contact Info) Description 09/17/2024 9:00 AM EST Office Visit Gynecology/Obstetric s Elisa Crooks [address] [place] [address] Alyssa Brar CRNP [address] [place] [address] Normal in second trimester*; Family history of defect Allergies No known active allergiesdocumented as of this encounter (statuses as of 09/17/2024) Medications 27-0.8 MG TABS Take 1 Tablet [...] as of this encounter (statuses as of 09/17/2024) Active Problems Problem Noted Date Diagnosed Date Family history of defect 05/25/2022 Overview (07/20/2024): 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 Pt declined M referral and genetic screening for 2023 . Normal 05/25/2022 Estimated Date of Delivery Comme nts Yes 02/15/2025 Based on last me nstrual period of 05/11/2024 documented as of this encounter (statuses as of 09/17/2024) Resolved Problems Problem Noted Date Diagnosed Date [...] 05/25/2022 Overview (11/01/2020): Scheduled for delivery at [place] after 39 weeks Assessment & Plan (08/25/2020 [...] as of this encounter (statuses as of 09/17/2024) Immunizations Name Administration Dates Next Due Seasonal [...] money to get more. Patient declined 07/2024 [place] Depression Scale Answer Date Recorded [place] Depression Scale Total 2 07/20/2024 The thought [...] Sign Reading Time Taken Comments Blood Pressure 124/70 09/17/2024 9:15 AM EST Pulse - - Temperature - - Respiratory Rate - - Oxygen Saturation - - Inhaled Oxygen Concentration - - Weight 74.3 kg (163 lb 12.8 oz) 09/17/2024 9:15 AM EST Height - - Body Mass Index 28.12 07/20/2024 9:15 AM EDT documented in this encounter Progress Notes * Alyssa Brar CRNP - 09/17/2024 9:31 AM EST 18w3d N/v improving. Not having to take zofran every day. Pretty sure she is feeling movement. Denies bleeding. Anatomy u/s in 2-4 weeks. MONIKA Young * Ktaelyn Mcdaniel CMA - 09/17/2024 9:15 AM EST 18w3d Denies any concerns + nausea/vomiting, zofran helping. documented in this encounter Plan of Treatment Upcoming Encounters Date Type Department Care Team (Late st Contact Info) Description 09/29/2024 12:15 PM EST Imaging Radiology [facility] [address] [place] [address] 10/15/2024 9:15 AM EST Office Visit Gynecology/Obstetrics [facility] [address] [place] [phone] Backer, MONIKA Scruggs [address] [place] [address] Scheduled Orders Name Type Priority Associated Diagnoses Orde r Schedule US PREG SINGLE/1ST GEST, 14 WEEKS OR LATER Medical Imaging Routine Normal in second trimester Expected: 09/28/2024 (Approximate), Expires: 10/17/2025 Health Maintenance Due Date Last Done Comments [...] and were consensually agreed upon. Care Teams Ramp Jockey Relationship Specialty Start Date End Date Ivory Sykes MD [address] [place] [address] PCP - General Family Medicine 11/14/17 documented as of this encounter
--- NOTE | 2025-02-17 06:56 | Anesthesia Procedure Note ---
Date of Service February 17, 2025 Anesthesia Post Epidural Note Vital Signs Vital Signs: Temp Pulse Resp BP Pulse Ox O2 Del Method 36.6 C 78 18 96/62 L 97 Room Air 02/17/25 04:00 02/17/25 04:00 02/17/25 04:00 02/17/25 04:00 02/16/25 20:50 02/17/25 04:00 Pain Intensity Bilateral Abdomen: Pain Intensity: 0 Episiotomy/Laceration: Pain Intensity: 2 Notes Mental Status: alert / awake / arousable and participated in evaluation Patient Amnestic to Procedure: No Nausea / Vomiting: adequately controlled Pain: adequately controlled Airway Patency, RR, SpO2: stable & adequate BP & HR: stable & adequate Hydration State: stable & adequate Neuraxial Anesthesia: was administered and sensory block resolved Anesthetic Complications: no major complications apparent and Pt Satisfied with anesthetic care Epidural: Removed without complications and With tip intact
[2025-02-17] MEDS: PRENATAL VITAMIN 1 TAB PO SCH (08:44)
[2025-02-17] MEDS: FERROUS SULFATE 325 MG TAB PO SCH (08:44)
[2025-02-17] MEDS: DOCUSATE SODIUM 100 MG CAP PO SCH (08:44)
--- NOTE | 2025-02-17 09:40 | Obstetrical Progress Note ---
Date of Service February 17, 2025 Assessment & Plan Admission and Anticipated Discharge Date Admission Date: February 16, 2025 Subjective abdomen soft and non tender no calf tenderness ambulating well vaginal bleeding scant hgb 12.7 patient request discharge Results & Data Vital Signs (Past 12 Hours) Vital Signs Temp Pulse Pulse Resp BP BP Pulse Ox 02/17/25 07:30 36.6 C 84 18 111/78 97 02/17/25 04:00 36.6 C 78 18 96/62 L 02/17/25 00:00 36.4 C L 83 18 110/72 02/16/25 23:33 36.8 C 18 02/16/25 23:33 85 02/16/25 23:33 118/59 L 02/16/25 23:18 91 H 02/16/25 23:18 120/58 L 02/16/25 23:03 18 02/16/25 23:03 91 H 02/16/25 23:03 124/59 L 02/16/25 22:48 80 02/16/25 22:48 124/65 02/16/25 22:33 16 02/16/25 22:33 99 H 02/16/25 22:33 125/65 02/16/25 22:18 88 02/16/25 22:18 123/73 02/16/25 22:03 18 02/16/25 22:03 99 H 02/16/25 22:03 135/73 02/16/25 21:48 18 02/16/25 21:48 84 02/16/25 21:48 142/61 H O2 Del Method 02/17/25 07:30 Room Air 02/17/25 04:00 Room Air 02/17/25 00:00 Room Air 02/16/25 23:33 02/16/25 23:33 02/16/25 23:33 02/16/25 23:18 02/16/25 23:18 02/16/25 23:03 02/16/25 23:03 02/16/25 23:03 02/16/25 22:48 02/16/25 22:48 02/16/25 22:33 02/16/25 22:33 02/16/25 22:33 02/16/25 22:18 02/16/25 22:18 02/16/25 22:03 02/16/25 22:03 02/16/25 22:03 02/16/25 21:48 02/16/25 21:48 02/16/25 21:48
[2025-02-17 09:46] LABS: Hematocrit (blood only) 36.3 % (37.0-47.0); Mean Corpuscular Hemoglobin 28.6 pg (25.0-34.0); Mean Corpuscular Hgb Conc 33.1 g/dL (32.0-36.0); Mean Corpuscular Volume 86.4 fL (80.0-100.0); Mean Platelet Volume 9.8 fL (9.4-12.4); Platelet Count 147 K/uL (130-400); RDW Coefficient of Variation 18.3 % (11.5-14.5); RDW Standard Deviation 57.6 fL (36.4-46.3)
[2025-02-17 13:39] VITALS: TEMP 97.7; O2SAT 98
[2025-02-17] MEDS: bisacodyL 5 MG TABEC PO SCH (19:55)
[2025-02-17 20:18] VITALS: BP 116/70; PULSE 85; RESP 18
[2025-02-18] MEDS ORDERED: bisacodyL 10 MG SUPP PR PRN (21:09)
== END 2025-02-17 21:45 | disposition home or self-care (01) | DRG 807 ==
LOC: OPB 15:36 → 4S1 15:37 → 4E2 02-17 00:18